=== PATIENT | male | born 1965 | race Caucasian/White ===

== ENCOUNTER → 2016-10-21 | Outpatient (CLI) | payer MEDICARE, MEDICAID | LOC: RAD 09:44 | PROVIDERS: ATTEND Specialist | DX: K21.9 Gastro-esophageal reflux disease without esophagitis (principal); K44.9 Diaphragmatic hernia without obstruction or gangrene | CPT/HCPCS: 74220 ==

== ENCOUNTER 2016-11-21 09:08 | Outpatient (CLI) | payer MEDICARE, MEDICAID ==
[~2016-11-21 09:08] MED LIST: FERRIC CARBOXYMALTOSE 750 MG in NORMAL SALINE 250 ML IV PRN; NORMAL SALINE 250 ML IV PRN
[2016-11-21 09:29] VITALS: BP 103/64
== END 2016-11-21 09:55 | disposition home or self-care (01) ==
LOC: II 09:08 → 5TH 09:09 → II 09:55
PROVIDERS: ATTEND Specialist
PROC: 3E033GC Introduction of Other Therapeutic Substance into Peripheral Vein, Percutaneous Approach (ICD-10-PCS; principal; 2016-11-21)
DX: D64.9 Anemia, unspecified (principal); K90.9 Intestinal malabsorption, unspecified
CPT/HCPCS: 96365; J7050; J1439

== ENCOUNTER 2016-11-28 09:05 | Outpatient (CLI) | payer MEDICAID, MEDICARE ==
[2016-11-28 09:24] VITALS: BP 104/69
== END 2016-11-28 09:54 | disposition home or self-care (01) ==
LOC: II 09:05 → 5TH 09:09 → II 09:54
PROVIDERS: ATTEND Specialist
PROC: 3E033GC Introduction of Other Therapeutic Substance into Peripheral Vein, Percutaneous Approach (ICD-10-PCS; principal; 2016-11-28)
DX: D64.9 Anemia, unspecified (principal); K90.9 Intestinal malabsorption, unspecified
CPT/HCPCS: 96365; J7050; J1439

== ENCOUNTER 2017-02-04 09:56 | Outpatient (CLI) | payer MEDICAID, MEDICARE ==
[2017-02-04 10:46] VITALS: BP 90/50
== END 2017-02-04 10:59 | disposition home or self-care (01) ==
LOC: II 09:56 → 5TH 09:57 → II 10:59
PROVIDERS: ATTEND Specialist
PROC: 3E033GC Introduction of Other Therapeutic Substance into Peripheral Vein, Percutaneous Approach (ICD-10-PCS; principal; 2017-02-04)
DX: D64.9 Anemia, unspecified (principal); K90.9 Intestinal malabsorption, unspecified
CPT/HCPCS: 96367; J7050; J1439; 96365

== ENCOUNTER 2017-02-11 10:34 | Outpatient (CLI) | payer MEDICARE ==
[2017-02-11 10:56] VITALS: BP 106/50
== END 2017-02-11 11:38 | disposition home or self-care (01) ==
LOC: 5TH 10:34 → II 10:34
PROVIDERS: ATTEND Specialist
PROC: 3E033GC Introduction of Other Therapeutic Substance into Peripheral Vein, Percutaneous Approach (ICD-10-PCS; principal; 2017-02-11)
DX: D64.9 Anemia, unspecified (principal); K90.9 Intestinal malabsorption, unspecified
CPT/HCPCS: 96365; J7050; J1439

== ENCOUNTER 2017-04-03 01:23 | Inpatient (IN) | payer MEDICARE ==
[2017-04-03] MEDS ORDERED: METHYLPREDNISOLONE INJ 125 MG/2 ML SDV IV ONE (01:32)
[2017-04-03] MEDS ORDERED: IPRATROPIUM/ALBUTEROL 0.5-2.5 MG/3 ML AMPUL NEB ONE ×2 (01:32→01:44)
[2017-04-03] MEDS ORDERED: NORMAL SALINE 1000 ML 1,000 ML IV ONE (01:44)
[2017-04-03] MEDS: ALBUTEROL SULFATE 0.083% NEB 2.5 MG/3 ML AMPUL NEB SCH ×2 (02:16→02:55)
[2017-04-03 02:18] LABS: ABSOLUTE BASOPHILS # (AUTO) 0.1 10^3/uL (0.0-0.2); ABSOLUTE EOSINOPHILS # (AUTO) 0.2 10^3/uL (0.0-0.6); ABSOLUTE LYMPHOCYTES (AUTO) 0.9 10^3/uL (0.5-4.7); ABSOLUTE MONOCYTES (AUTO) 0.8 10^3/uL (0.1-1.4); ABSOLUTE NEUT (AUTO) 15.2 10^3/uL (1.7-8.2); BASOPHILS % (AUTO) 0.4 % (0-2); EOSINOPHILS % (AUTO) 1.4 % (0-6); HEMATOCRIT 28.4 % (37.9-51.0); HGB HCT DIFFERENCE -1.4; LYMPHOCYTES % (AUTO) 5.3 % (13-45); MEAN CORPUSCULAR HEMOGLOBIN 27.9 pg (27.0-33.4); MEAN CORPUSCULAR HGB CONC 31.8 g/dL (32.0-36.0); MEAN CORPUSCULAR VOLUME 88 fl (80-97); MONOCYTES % (AUTO) 4.6 % (3-13); RED BLOOD COUNT 3.23 10^6/uL (4.35-5.55); RED CELL DISTRIBUTION WIDTH 16.4 % (11.5-14.0); SEGMENTED NEUTROPHILS % (AUTO) 88.3 % (42-78); WHITE BLOOD COUNT 17.2 10^3/uL (4.0-10.5)
[2017-04-03 02:19] LABS: VENOUS BLOOD BASE EXCESS 3.3 mmol/L; VENOUS BLOOD HCO3 30.2 mmol/L (20-32); VENOUS BLOOD PCO2 55.3 mmHg (35-63); VENOUS BLOOD PH 7.36 (7.30-7.42)
--- NOTE | 2017-04-03 02:22 | ER Document Report ---
ED General - General Chief Complaint: breating diffiiculty Stated Complaint: SHORT OF BREATH Time Seen by Provider: 04/03/17 01:43 Notes: Patient is a 51-year-old male who presents with complaint of feeling short of breath. He was discharged from [facility] 1 week ago due to pneumonia. His daughter says that he was there for just over a week. He was not discharged home on antibiotics he received a week of antibiotics while in the hospital. He does have a history of chronic anemia and is followed by hematology for this. He was given blood transfusions while [facility]. He had been doing well until last day and a half and he had gradually worsening difficulty breathing which became more severe tonight. He wears 3 L of oxygen at home when at rest. He wears 4 L when he is ambulating. No fevers at home. No vomiting. No chest pain. No abdominal pain. No other complaints at this time. TRAVEL OUTSIDE OF THE [place] IN LAST 30 DAYS: No - Related Data Allergies/Adverse Reactions: No Known Allergies Allergy (Verified 10/23/16 10:10) Past Medical History - Social History Smoking Status: Former Smoker Frequency of alcohol use: None Drug Abuse: None Family History: Reviewed & Not Pertinent Patient has suicidal ideation: No Patient has homicidal ideation: No Pulmonary Medical History: Reports: Hx COPD Neurological Medical History: Denies: Hx Seizures Renal/ Medical History: Denies: Hx Peritoneal Dialysis GI Medical History: Reports: Hx Gastroesophageal Reflux Disease, Hx Endoscopy Past Surgical History: Reports: Hx Orthopedic Surgery - back - Immunizations Hx Diphtheria, Pertussis, Tetanus Vaccination: Yes Hx Pneumococcal Vaccination: 09/14/14 Review of Systems - Review of Systems Notes: My Normal Review Basic REVIEW OF SYSTEMS: CONSTITUTIONAL : Denies fever, chills, or sweats. Denies recent illness. EENT: Denies eye, ear, throat, or mouth pain or symptoms. Denies nasal or sinus congestion. CARDIOVASCULAR: Denies chest pain. RESPIRATORY: Difficulty breathing. GASTROINTESTINAL: Denies abdominal pain. Denies nausea, vomiting, or diarrhea. Denies constipation. Last BM: MUSCULOSKELETAL: Denies neck or back pain or joint pain or swelling. SKIN: Denies rash or skin lesions. HEMATOLOGIC : Denies easy bruising or bleeding. LYMPHATIC: Denies swollen, enlarged glands. NEUROLOGICAL: Denies altered mental status or loss of consciousness. Denies headache. Denies weakness or paralysis or loss of use of either side. Denies problems with gait or speech. Denies sensory or motor loss. ALL OTHER SYSTEMS REVIEWED AND NEGATIVE. Physical Exam - Vital signs Vitals: Temp Pulse Resp BP Pulse Ox 97.5 F 121 H 26 H 87/57 L 87 L 04/03/17 01:30 04/03/17 01:30 04/03/17 01:30 04/03/17 01:30 04/03/17 01:30 - Notes Notes: General Appearance: Well nourished, alert, cooperative, moderate acute distress , no obvious discomfort. Vitals: reviewed, See vital signs table. Head: no swelling or tenderness to the head Eyes: PERRL, EOMI, Conjuctiva clear Mouth: No decreasd moisture Neck: Supple, no neck tenderness, No thyromegaly Lungs: Diffuse wheezing, No rales, No rhonci, No accessory muscle use, poor air exchange bilaterally. Heart: Normal rate, Regular rythm, No murmur, no rub Abdomen: Normal BS, soft, No rigidity, No abdominal tenderness, No guarding, no rebound, no abdominal masses, no organomegaly Extremities: strength 5/5 in all extremities, good pulses in all extremities, no swelling or tenderness in the extremities, no edema. Skin: warm, dry, appropriate color, no rash Neuro: speech clear, oriented x 3, normal affect, responds appropriately to questions. Course - Re-evaluation Re-evalutation: 04/03/17 02:33 Patient's blood pressure systolically is in the 80s. He is receiving IV fluid bolus. His oxygen saturation is around 90% on 40% of FiO2 on the BiPAP. I have increased his FiO2 to 50%. If patient continues to be hypotensive after fluid boluses he may require central line and pressor therapy. 04/03/17 04:51 Patient's lung moore have cleared up very well. Is good air exchange now. His x-ray does show a hilar mass in the left side. The daughter does have some discharge paperwork from [facility] which shows that he did receive a CT scan of his chest wall there but does not tell what the report was for CT scan. I have requested old records from [facility] and hopefully this will have the CT scan result which will show us what the potential masses. Patient does have a leukocytosis. When he was discharged [facility] his white blood cell count was 5. He is now 17,000. Being that he was just treated for pneumonia and a hospital setting I will cover him for hospital-acquired pneumonia has had this possibility with his leukocytosis and difficulty breathing. He has been borderline hypotensive since he arrived. Systolic blood pressure was in the 80s however his mean arterial pressure was always well above 65. His systolic pressure is now in the 90s after fluid bolus. His daughter also mentions that he was hypotensive the entire time he was at [facility] as well. At this time I feel the patient needs to be admitted for further workup and treatment of his COPD exacerbation and possible pneumonia and lung mass. I have spoken with Dr. Jaeger, hospitalist, who agrees to accept the patient. Dictation of this chart was performed using voice recognition software; therefore, there may be some unintended grammatical errors. - Vital Signs Vital signs: Temp Pulse Resp BP Pulse Ox 97.5 F 121 H 11 L 81/68 L 95 04/03/17 01:30 04/03/17 01:30 04/03/17 02:08 04/03/17 02:08 04/03/17 02:08 - Laboratory Result Diagrams: 04/03/17 02:00 04/03/17 02:00 Laboratory results interpreted by me: 04/03/17 04/03/17 04/03/17 02:00 02:00 02:00 WBC 17.2 H RBC 3.23 L Hgb 9.0 L Hct 28.4 L MCHC 31.8 L RDW 16.4 H Seg Neutrophils % 88.3 H Lymphocytes % 5.3 L Absolute Neutrophils 15.2 H Sodium 136.1 L Potassium 3.4 L Chloride 96 L Glucose 147 H AST 13 L Creatine Kinase < 20 L Albumin 2.5 L - EKG Interpretation by Me Additional EKG results interpreted by me: 04/03/17 02:21 EKG is reviewed and interpreted by me. EKG shows sinus tachycardia with a rate of [address] segment elevation or depression. No ischemic T-wave inversions. NV interval, QRS duration, QTc intervals are within normal range. Old EKG for comparison is from April 21, 2016. Critical Care Note - Critical Care Note Total time excluding time spent on procedures (mins): 50 Comments: Critical care time for this patient not including time spent on procedures approximately 50 minutes due to frequent re-evaluations for his respiratory distress, management of his blood pressure, and management of his BiPAP. Dictation of this chart was performed using voice recognition software; therefore, there may be some unintended grammatical errors. Discharge - Discharge Clinical Impression: Lung mass Dyspnea Qualifiers: Dyspnea type: unspecified Qualified Code(s): R06.00 - Dyspnea, unspecified Leukocytosis Qualifiers: Leukocytosis type: unspecified Qualified Code(s): D72.829 - Elevated white blood cell count, unspecified Condition: Stable Disposition: ADMITTED INPATIENT Admitting Provider: Hospitalist Unit Admitted: [facility]
--- NOTE | 2017-04-03 02:30 | RADIOLOGY REPORT (SQ) ---
EXAM DESCRIPTION: CHEST SINGLE VIEW COMPLETED DATE/TIME: 04/03/2017 2:18 am REASON FOR STUDY: sob COMPARISON: 04/23/2016. EXAM PARAMETERS: NUMBER OF VIEWS: One view. TECHNIQUE: Single frontal radiographic view of the chest acquired. RADIATION DOSE: NA LIMITATIONS: None. FINDINGS: LUNGS AND PLEURA: Bullous emphysema. Chronic scarring. Large bulla in the left upper lob e. Ill-defined density in the right perihilar region. MEDIASTINUM AND HILAR STRUCTURES: No masses. Contour normal. HEART AND VASCULAR STRUCTURES: Heart normal in size. Normal vasculature. BONES: No acute findings. HARDWARE: None in the chest. OTHER: No other significant finding. IMPRESSION: COPD WITH BULLOUS EMPHYSEMA AND CHRONIC SCARRING. POSSIBLE RIGHT PERIHILAR MASS. TECHNICAL DOCUMENTATION: JOB ID: [id number]
[2017-04-03 02:31] LABS: ALANINE AMINOTRANSFERASE 24 U/L (21-72); ALBUMIN 2.5 g/dL (3.5-5.0); ALKALINE PHOSPHATASE 119 U/L (38-126); ANION GAP 11 (5-19); ASPARTATE AMINO TRANSFERASE 13 U/L (17-59); BILIRUBIN,DIRECT 0.4 mg/dL (0.0-0.4); BILIRUBIN,TOTAL 0.5 mg/dL (0.2-1.3); BLOOD UREA NITROGEN 19 mg/dL (7-20); CALCIUM 8.7 mg/dL (8.4-10.2); CARBON DIOXIDE 29 mmol/L (22-30); CHLORIDE 96 mmol/L (98-107); CREATININE RESULT 0.95 mg/dL (0.52-1.25); GLUCOSE 147 mg/dL (75-110); POTASSIUM 3.4 mmol/L (3.6-5.0); SODIUM 136.1 mmol/L (137-145); TOTAL PROTEIN 6.4 g/dL (6.3-8.2)
[2017-04-03] MEDS ORDERED: VANCOMYCIN HCL INJ 1000 MG VIAL IV ONE (02:38)
[2017-04-03 03:04] LABS: CREATINE KINASE MB 1.09 ng/mL (<4.55)
[2017-04-03 03:08] LABS: TROPONIN I 0.095 ng/mL
[2017-04-03] MEDS ORDERED: ENOXAPARIN SODIUM INJ 60 MG/0.6 ML DISP.SYRIN SUBCUT SCH ×2 (03:15)
[2017-04-03] MEDS ORDERED: NORMAL SALINE 1000 ML 1,000 ML IV PRN (03:40)
[2017-04-03] MEDS ORDERED: ACETAMINOPHEN 325 MG TABLET PO PRN (04:43)
[2017-04-03] MEDS ORDERED: IRON POLYSACCHARIDES COMPLEX 150 MG CAPSULE PO ONE (05:15)
[2017-04-03] MEDS ORDERED: FLUTICASONE NASAL SPRAY 50 MCG/SPRY 120 SPRAY/16 GM NASL ONE (05:15)
[2017-04-03 05:30] LABS: MAGNESIUM 1.9 mg/dL (1.6-2.3)
[2017-04-03] MEDS ORDERED: MAGNESIUM SULFATE/D5W 100 ML IV ONE (05:34)
[2017-04-03] MEDS ORDERED: VORICONAZOLE IV SCH (05:45)
[2017-04-03] MEDS ORDERED: NORMAL SALINE IV SCH (05:45)
[2017-04-03] MEDS ORDERED: FLUTICASONE NASAL SPRAY 50 MCG/SPRY 120 SPRAY/16 GM ONE (05:45)
--- NOTE | 2017-04-03 05:57 | EKG REPORT ---
SEVERITY:- OTHERWISE NORMAL ECG - SINUS TACHYCARDIA : Confirmed by: Clarice Ahn MD 03-Apr-2017 05:56:51
[2017-04-03] MEDS ORDERED: PIPERACILLIN/TAZOBACTAM 4.5 GM VIAL IV PRN (06:00)
[2017-04-03] MEDS ORDERED: PIPERACILLIN SODIUM/TAZOBACTAM 4.5 GM in NORMAL SALINE 100 ML IV SCH (06:00)
[2017-04-03 06:15] LABS: ARTERIAL BLOOD BASE EXCESS 2.8 mmol/L; ARTERIAL BLOOD O2 SATURATION 97.2 % (94-98)
[2017-04-03] MEDS: LANSOPRAZOLE 30 MG TAB.RAP.DR PO SCH ×2 (06:32→16:19)
[2017-04-03] MEDS: HEPARIN SOD (PORCINE) 5,000 UNIT/ML 1 ML SYRINGE SUBCUT SCH ×3 (06:33→21:33)
[2017-04-03] MEDS: NORMAL SALINE 1000 ML 1,000 ML IV SCH ×2 (06:35→11:35)
[2017-04-03] MEDS: POTASSI CL 20 MEQ/50 ML RIDER 50 ML IV SCH ×5 (06:36→23:36)
[2017-04-03] MEDS ORDERED: VANCOMYCIN HCL 0 MG in DEXTROSE 5%-WATER 250 ML IV NR (06:45)
[2017-04-03] MEDS ORDERED: CEFEPIME 1 GM/D5W RTU 50 ML IV SCH (06:45)
--- NOTE | 2017-04-03 06:51 | PDOC H&P ---
History of Present Illness Admission Date/PCP: 04/03/17 04:43 LAKSHMI GARCIA MD Patient complains of: Shortness of breath nonproductive cough History of Present Illness: HCERIE SIDDIQUI is a 51 year old male with a past medical history of oxygen dependent COPD, severe emphysema with scarring, recurrent pneumonia, severe iron deficiency anemia and Hillar adenopathy. Patient was released 7 days ago from [facility] following a 14 day hospitalization for respiratory failure and pneumonia. He was not discharged with antibiotics or steroids and developed worsening shortness of breath subjective fever of the last 48 hours prompting her to seek evaluation emergency room. Where he is found to have severe sepsis with hypotension, tachycardia, hypoxia, pneumonia and leukocytosis. He started on BiPAP, Zosyn and vancomycin and referred to the hospitalist for admission. Patient is toxic and severely ill unable to cooperate in History. Records from [facility] are requested and pending. Past Medical History Pulmonary Medical History: Reports: Chronic Obstructive Pulmonary Disease (COPD) , Pneumonia, Respiratory Failure Neurological Medical History: Denies: Seizures GI Medical History: Reports: Gastroesophageal Reflux Disease Hematology: Reports: Anemia Past Surgical History Past Surgical History: Reports: Orthopedic Surgery - back Social History Information Source: [facility] Records Lives with: Spouse/Significant other Smoking Status: Former Smoker Hx Recreational Drug Use: No Drugs: None Hx Prescription Drug Abuse: No - Advance Directive Resuscitation Status: Full Code Family History Family History: COPD Parental Family History Reviewed: Yes Children Family History Reviewed: Yes Sibling(s) Family History Reviewed.: Yes Medication/Allergy Home Medications: Aspirin [Aspirin 81 mg Chewable Tablet] 81 mg PO DAILY 01/28/12 Cyclobenzaprine HCl [Flexeril 10 mg Tablet] 10 mg PO TID 01/28/12 Multivitamin [Multivitamins] 1 each PO DAILY 01/28/12 Tiotropium [place] [Spiriva Handihaler 18 mcg/dose (30 Dose)] 18 mcg IH BID 29/08 Montelukast Sodium [Singulair 10 mg Tablet] 10 mg PO QHS 04/01/14 Gabapentin 600 mg PO TID 10/12/15 Ibuprofen [Motrin 800 mg Tablet] 800 mg PO TID 10/12/15 Loratadine [Claritin] 10 mg PO DAILY 10/12/15 Docusate Sodium [Colace 100 mg Capsule] 100 mg PO BID #60 capsule 10/22/15 Fluticasone/Salmeterol [Advair 250-50 Diskus 14 Dose/Diskus] 1 inh IH Q12 #1 inhaler 10/22/15 Furosemide [Lasix 20 mg Tablet] 20 mg PO DAILY #30 tablet 10/22/15 Lorazepam 0.5 mg PO Q4HP PRN 04/22/16 Ipratropium/Albuterol Sulfate [Duoneb 3 ml Ampul] 3 ml NEB [id number] #30 vial.neb 04/30/16 Oxycodone HCl [Oxy-Ir 5 mg Tablet] 20 mg PO Q6 #30 tablet 04/30/16 Oxycodone HCl [Oxycontin Sr 40 mg Tablet] 40 mg PO Q12 #30 tab.sr.12h 04/30/16 Prednisone [Deltasone 20 mg Tablet] 40 mg PO DAILY #30 tablet 04/30/16 Cefpodoxime Proxetil [Vantin 200 mg Tablet] 1 tab PO Q12 #28 tab 05/01/16 Levofloxacin [Levaquin 750 mg Tablet] 750 mg PO DAILY #15 tab 05/01/16 Allergies/Adverse Reactions: No Known Allergies Allergy (Verified 10/23/16 10:10) Review of Systems ROS unobtainable: Due to mental status Physical Exam Vital Signs: Temp Pulse Resp BP Pulse Ox 97.5 F 121 H 11 L 91/65 L 99 04/03/17 01:30 04/03/17 01:30 04/03/17 06:09 04/03/17 05:30 04/03/17 06:09 General appearance: PRESENT: disheveled, severe distress, thin, other - Chronically ill appearing with cachexia and temporal wasting Head exam: PRESENT: atraumatic, normocephalic Eye exam: PRESENT: conjunctiva pink, EOMI, PERRLA. ABSENT: scleral icterus Ear exam: PRESENT: normal external ear exam Mouth exam: PRESENT: moist, tongue midline Neck exam: ABSENT: carotid bruit, JVD, lymphadenopathy, thyromegaly Respiratory exam: PRESENT: accessory muscle use, crackles, decreased breath sounds, prolonged expiratory phas, retraction, rhonchi, tachypnea. ABSENT: wheezes Cardiovascular exam: PRESENT: RRR. ABSENT: diastolic murmur, rubs, systolic murmur Pulses: PRESENT: normal dorsalis pedis pul Vascular exam: PRESENT: normal capillary refill GI/Abdominal exam: PRESENT: normal bowel sounds, soft. ABSENT: distended, guarding, mass, organolmegaly, rebound, tenderness Rectal exam: PRESENT: deferred Extremities exam: PRESENT: full ROM. ABSENT: calf tenderness, clubbing, pedal edema Neurological exam: PRESENT: alert, awake, oriented to person, oriented to place , oriented to time, oriented to situation, CN II-XII grossly intact. ABSENT: motor sensory deficit Psychiatric exam: PRESENT: appropriate affect, normal mood. ABSENT: homicidal ideation, suicidal ideation Skin exam: PRESENT: dry, intact, warm. ABSENT: cyanosis, rash Results Laboratory Results: 04/03/17 06:00 Carbonic Acid 1.62 H HCO3/H2CO3 Ratio 17:1 ABG pH 7.35 ABG pCO2 53.8 H ABG pO2 100.1 H ABG HCO3 29.0 H ABG O2 Saturation 97.2 ABG Base Excess 2.8 FiO2 45% Impressions: Chest X-Ray 04/03/17 01:32 IMPRESSION: COPD WITH BULLOUS EMPHYSEMA AND CHRONIC SCARRING. POSSIBLE RIGHT PERIHILAR MASS. Assessment & Plan - Diagnosis (1) Severe sepsis Is this a current diagnosis for this admission?: YesPlan: Likely secondary to pneumonia given his chronic illness I will obtain a random cortisol level and started on Solu-Cortef empirically, 4 L of crystalloid has not improved blood pressure and levofed is initiated (2) Acute renal failure Is this a current diagnosis for this admission?: YesPlan: Likely secondary to prolonged hypotension, will avoid nephrotoxic meds and doses IV fluid challenge, continue to correct underlying cause (3) Anemia Qualifiers: Anemia type: iron deficiency Is this a current diagnosis for this admission?: YesPlan: His hemoglobin is at baseline he is hypoxic requiring optimization of his iron deficient state with an iron level of only 17 he is ordered IV iron. Follow-up CBC and consideration of transfusion of packed red blood cells. Will require outpatient workup for causes of chronic blood loss (4) Acute on chronic respiratory failure with hypoxia and hypercapnia Is this a current diagnosis for this admission?: YesPlan: BiPAP supplemental oxygen, albuterol and Atrovent, pulmonology consult ordered (5) Pneumonia Qualifiers: Pneumonia type: due to unspecified organism Laterality: bilateral Lung location: unspecified part of lung Qualified Code(s): J18.9 - Pneumonia , unspecified organism Is this a current diagnosis for this admission?: YesPlan: Given recent hospitalization and unclear culture results he is started on vancomycin, cefepime and Zosyn given risk of Pseudomonas and Vfend given recent verbal history from his of fungal lung infection with adenopathy. Follow- up blood cultures and CBC consider bronchoscopy. Patient's drafter plumbing consulted - Time Time Spent: 50 to 70 Minutes - Inpatient Certification Medical Necessity: Need Close Monitoring Due to Risk of Patient Decompensation
[2017-04-03] MEDS ORDERED: DEXTROSE 5%-WATER 250 ML with NOREPINEPHRINE BITARTRATE 4 MG IV PRN ×2 (07:39)
[2017-04-03 07:48] LABS: URINE BARBITURATES SCREEN NEGATIVE; URINE METHADONE SCREEN NEGATIVE; URINE OPIATES LOW UNCONFIRMED POSITIVE; URINE PHENCYCLIDINE SCREEN NEGATIVE
[2017-04-03] MEDS ORDERED: IPRATROPIUM/ALBUTEROL 0.5-2.5 MG/3 ML AMPUL NEB SCH (08:00)
[2017-04-03] MEDS ORDERED: IRON SUCROSE COMPLEX INJ/PF 100 MG/5 ML SDV IV ONE (09:00)
[2017-04-03] MEDS ORDERED: LEVALBUTEROL HCL NEB 1.25 MG/3 ML AMPUL NEB PRN (09:00)
[2017-04-03] MEDS ORDERED: CEFEPIME HCL 1 GM in DEXTROSE 5%-WATER 50 ML IV SCH (09:00)
[2017-04-03] MEDS ORDERED: BISACODYL 5 MG TABEC PO ONE (09:01)
[2017-04-03] MEDS ORDERED: HYDROCORTISONE SOD SUCCINATE INJ/PF 100 MG/2 ML SDV IV SCH ×2 (10:00)
[2017-04-03 10:44] LABS: ANION GAP 10 (5-19); BLOOD UREA NITROGEN 16 mg/dL (7-20); CALCIUM 7.7 mg/dL (8.4-10.2); CARBON DIOXIDE 25 mmol/L (22-30); CHLORIDE 102 mmol/L (98-107); GLUCOSE 113 mg/dL (75-110); POTASSIUM 3.1 mmol/L (3.6-5.0); SODIUM 137.4 mmol/L (137-145)
[2017-04-03] MEDS ORDERED: NORMAL SALINE IV ONE (11:00)
[2017-04-03] MEDS ORDERED: CASPOFUNGIN ACETATE IV ONE (11:00)
[2017-04-03] MEDS: FAMOTIDINE INJ/PF 20 MG/2 ML SDV IV SCH ×2 (11:31→21:26)
[2017-04-03] MEDS: METHYLPREDNISOLONE INJ 125 MG/2 ML SDV IV SCH ×3 (11:31→21:26)
[2017-04-03] MEDS: ROFLUMILAST 500 MCG TABLET PO SCH (11:32)
[2017-04-03] MEDS: LINEZOLID 300 ML IV SCH ×2 (11:32→21:32)
[2017-04-03] MEDS: GUAIFENESIN 600 MG TABLET.SA PO SCH ×2 (11:34→21:22)
[2017-04-03] MEDS: ASPIRIN 81 MG TABLET, CHEWABLE PO SCH (11:35)
[2017-04-03] MEDS: GABAPENTIN 300 MG CAPSULE PO SCH ×3 (11:35→21:22)
[2017-04-03] MEDS: DOCUSATE SODIUM 100 MG CAPSULE PO SCH ×2 (11:35→17:48)
[2017-04-03] MEDS: LORATADINE 10 MG TABLET PO SCH (11:35)
[2017-04-03] MEDS: IPRATROPIUM/ALBUTEROL 0.5-2.5 MG/3 ML AMPUL NEB SCH ×4 (12:13→23:52)
[2017-04-03] MEDS ORDERED: NOREPINEPHRINE BITARTRATE INJ/PF 4 MG/4 ML SDV IV ONE (13:54)
[2017-04-03] MEDS: IMIPENEM/CILASTATIN SODIUM 1,000 MG in NORMAL SALINE 250 ML IV SCH ×3 (14:03→23:33)
[2017-04-03 16:22] LABS: ARTERIAL BLOOD BASE EXCESS 1.8 mmol/L; ARTERIAL BLOOD O2 SATURATION 97.5 % (94-98)
--- NOTE | 2017-04-03 16:30 | PDOC PROGRESS REPORT ---
Subjective Progress Note for:: 04/03/17 Subjective:: Patient is on BiPap making ROS difficult. Patient reports he has been short of breath for 48 hours. Patient is less than one week out from [place] from [facility] for sepsis and pneumonia. reports [facility] unwilling to do bronchoscopy when "he looked the best he had in a long time." Physical Exam Vital Signs: Temp Pulse Resp BP Pulse Ox 97.5 F 94 16 100/66 100 04/03/17 01:30 04/03/17 07:51 04/03/17 07:51 04/03/17 07:31 04/03/17 07:51 Exam: General: lethargic, severe respiratory distress, toxic appearing and pale HEENT: AT/NC, PERRL, EOMI, oropharynx is dry, pink, no scleral icterus, no conjunctival injection Neck: No JVD, trachea midline Chest: Diffuse crackles, rhonchi, retractions, accessory muscle usage CV: Regular rate and rhythm, normal S1 and S2, no rub or gallop; Abdomen: Soft, nontender to palpation, nondistended, active bowel sounds; no rebound, rigidity, or guarding Extremities: No cyanosis; + clubbing, trace edema Neuro: lethargic Results Laboratory Results: 04/03/17 06:00 Carbonic Acid 1.62 H HCO3/H2CO3 Ratio 17:1 ABG pH 7.35 ABG pCO2 53.8 H ABG pO2 100.1 H ABG HCO3 29.0 H ABG O2 Saturation 97.2 ABG Base Excess 2.8 FiO2 45% Impressions: Chest X-Ray 04/03/17 01:32 IMPRESSION: COPD WITH BULLOUS EMPHYSEMA AND CHRONIC SCARRING. POSSIBLE RIGHT PERIHILAR MASS. Assessment & Plan - Diagnosis (1) Acute on chronic respiratory failure with hypoxia and hypercapnia Is this a current diagnosis for this admission?: YesPlan: Patient on Bipap Have consulted Dr. Shin of pulmonary medicine per request (2) Severe sepsis Is this a current diagnosis for this admission?: YesPlan: Upon review of patient record from [facility], patient grew Yolanda Tropicalis and had a fever on Fluconazole. Patient also had 3 negative AFB. Cavitary pulmonary lesion. Patient completed one week of Linezolid and Meropenem. I did review his discharge summary from this admission. (3) Acute renal failure Qualifiers: Acute renal failure type: with acute tubular necrosis Qualified Code (s): N17.0 - Acute kidney failure with tubular necrosis Is this a current diagnosis for this admission?: YesPlan: Continue gentle hydration (4) Anemia Qualifiers: Anemia type: iron deficiency Is this a current diagnosis for this admission?: YesPlan: Type and screen (5) Pneumonia Qualifiers: Pneumonia type: due to unspecified organism Laterality: bilateral Lung location: unspecified part of lung Qualified Code(s): J18.9 - Pneumonia, unspecified organism Is this a current diagnosis for this admission?: YesPlan: Patient had recent diagnosis of cavitary pneumonia which was found to be polymicrobial with Yolanda including Yolanda tropicalis, aspergillus, and normal henrietta. Place patient on linezolid, imipenem, and caspofungin. Many strains of Yolanda tropicalis have inherent resistance to azoles. (6) Chronic pain Qualifiers: Chronic pain type: other chronic pain Qualified Code(s): G89.29 - Other chronic pain Is this a current diagnosis for this admission?: YesPlan: Hold narcotics due to hypotension (7) Chronically on opiate therapy Is this a current diagnosis for this admission?: Yes (8) dvt ppx Is this a current diagnosis for this admission?: YesPlan: heparin and scd (9) gi ppx Is this a current diagnosis for this admission?: YesPlan: prevacid - Time Critical Time spent with patient: 35 or more minutes Medications reviewed and adjusted accordingly: Yes - Plan Summary Plan Summary: Although attempting aggressive measures for this patient, I am less than optimistic he will survive this hospitalization. I have discussed this with his in plain terms and answer questions to the best my ability. At this time, she has decided for DNR. Total time spent with patient including patient education, physical examination, discussion with consultants, and formulation of plan was 65 minutes critical care.
[2017-04-03] MEDS ORDERED: OXYCODONE HCL IR 5 MG TABLET PO PRN (18:46)
[2017-04-03] MEDS: IPRATROPIUM/ALBUTEROL 0.5-2.5 MG/3 ML AMPUL NEB PRN (20:33)
[2017-04-03] MEDS: OXYCODONE HCL IR 5 MG TABLET PO PRN (21:21)
[2017-04-03] MEDS: MONTELUKAST SODIUM 10 MG TABLET PO SCH (21:23)
[2017-04-03] MEDS: FLUTICASONE/SALMETEROL DISKUS 500-50 MCG/DOSE IH SCH (21:26)
[2017-04-03] MEDS: FLUTICASONE NASAL SPRAY 50 MCG/SPRY 120 SPRAY/16 GM NASL SCH (21:34)
[2017-04-04] MEDS: POTASSI CL 20 MEQ/50 ML RIDER 50 ML IV SCH (01:40)
[2017-04-04] MEDS: METHYLPREDNISOLONE INJ 125 MG/2 ML SDV IV SCH ×4 (02:24→21:05)
[2017-04-04 04:02] LABS: ABSOLUTE LYMPHOCYTES (AUTO) 0.5 10^3/uL (0.5-4.7); ABSOLUTE MONOCYTES (AUTO) 0.2 10^3/uL (0.1-1.4); ABSOLUTE NEUT (AUTO) 6.8 10^3/uL (1.7-8.2); BASOPHILS % (AUTO) 0.2 % (0-2); EOSINOPHILS % (AUTO) 0.1 % (0-6); HEMATOCRIT 23.6 % (37.9-51.0); HGB HCT DIFFERENCE -0.5; LYMPHOCYTES % (AUTO) 7.2 % (13-45); MEAN CORPUSCULAR HEMOGLOBIN 29.2 pg (27.0-33.4); MEAN CORPUSCULAR HGB CONC 32.5 g/dL (32.0-36.0); MEAN CORPUSCULAR VOLUME 90 fl (80-97); MONOCYTES % (AUTO) 2.5 % (3-13); RED BLOOD COUNT 2.62 10^6/uL (4.35-5.55); RED CELL DISTRIBUTION WIDTH 16.3 % (11.5-14.0); WHITE BLOOD COUNT 7.6 10^3/uL (4.0-10.5)
[2017-04-04] MEDS: IPRATROPIUM/ALBUTEROL 0.5-2.5 MG/3 ML AMPUL NEB SCH ×5 (04:04→20:00)
[2017-04-04 04:10] LABS: HEMOGLOBIN 7.7 g/dL (13.5-17.0)
[2017-04-04 04:21] LABS: ANION GAP 6 (5-19); BLOOD UREA NITROGEN 14 mg/dL (7-20); CALCIUM 7.6 mg/dL (8.4-10.2); CARBON DIOXIDE 24 mmol/L (22-30); CHLORIDE 107 mmol/L (98-107); CREATININE RESULT 0.64 mg/dL (0.52-1.25); GLUCOSE 150 mg/dL (75-110); PHOSPHORUS 3.5 mg/dL (2.5-4.5); POTASSIUM 3.6 mmol/L (3.6-5.0); SODIUM 137.4 mmol/L (137-145)
[2017-04-04] MEDS: GABAPENTIN 300 MG CAPSULE PO SCH ×3 (05:33→21:06)
[2017-04-04] MEDS: LANSOPRAZOLE 30 MG TAB.RAP.DR PO SCH ×2 (05:33→17:44)
[2017-04-04] MEDS: IMIPENEM/CILASTATIN SODIUM 1,000 MG in NORMAL SALINE 250 ML IV SCH ×3 (05:34→17:44)
[2017-04-04] MEDS: HEPARIN SOD (PORCINE) 5,000 UNIT/ML 1 ML SYRINGE SUBCUT SCH ×3 (06:02→21:08)
[2017-04-04] MEDS: OXYCODONE HCL IR 5 MG TABLET PO PRN (06:05)
--- NOTE | 2017-04-04 07:02 | RADIOLOGY REPORT (SQ) ---
EXAM DESCRIPTION: CHEST SINGLE VIEW COMPLETED DATE/TIME: 04/04/2017 6:47 am REASON FOR STUDY: ACUTE/CHRONIC RESP FAILURE COMPARISON: 04/03/2017 NUMBER OF VIEWS: One view. TECHNIQUE: Single frontal radiographic view of the chest acquired. LIMITATIONS: None. FINDINGS: LUNGS AND PLEURA: No opacities, masses or pneumothorax. No pleural effusion. Attenuated bl ood vessels and flattened marialuisa-diaphragms. Numerous bullous emphysematous changes noted throughout t he lungs. Chronic scarring noted in throughout common not significant change from prior study. The ill-defined density in the right parahilar region has decreased in size comparison the prior study. MEDIASTINUM AND HILAR STRUCTURES: No masses. Contour normal. HEART AND VASCULAR STRUCTURES: Cardiac size is stable. No pulmonary vascular distention. BONES: No acute findings. HARDWARE: None in the chest. OTHER: No other significant finding. IMPRESSION: 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 The prev iously noted right perihilar mass/ infiltrate has decreased in size comparison the prior study. TECHNICAL DOCUMENTATION: JOB ID: [id number] All Rights Reserved
[2017-04-04] MEDS ORDERED: OXYCODONE HCL 60 MG PO SCH (08:15)
[2017-04-04] MEDS ORDERED: OXYCODONE HCL SR 10 MG TABLET PO ONE (09:00)
[2017-04-04] MEDS ORDERED: OXYCODONE HCL SR 40 MG TABLET PO ONE (09:00)
[2017-04-04] MEDS: LACTOBACILLUS ACIDOPHILUS 250 MG TAB PO SCH (09:07)
[2017-04-04] MEDS: ROFLUMILAST 500 MCG TABLET PO SCH (09:07)
[2017-04-04] MEDS: GUAIFENESIN 600 MG TABLET.SA PO SCH ×2 (09:08→21:06)
[2017-04-04] MEDS: DOCUSATE SODIUM 100 MG CAPSULE PO SCH ×2 (09:09→17:44)
[2017-04-04] MEDS: IRON POLYSACCHARIDES COMPLEX 150 MG CAPSULE PO SCH (09:10)
[2017-04-04] MEDS: LINEZOLID 300 ML IV SCH ×2 (09:10→22:43)
[2017-04-04] MEDS: FLUTICASONE/SALMETEROL DISKUS 500-50 MCG/DOSE IH SCH ×2 (09:12→21:05)
[2017-04-04] MEDS: FAMOTIDINE INJ/PF 20 MG/2 ML SDV IV SCH ×2 (09:12→21:05)
[2017-04-04] MEDS: LIDOCAINE 5% (700 MG) TRANSDERMAL ADH..PATCH TP SCH (09:13)
[2017-04-04] MEDS: LORATADINE 10 MG TABLET PO SCH (09:14)
[2017-04-04] MEDS: ASPIRIN 81 MG TABLET, CHEWABLE PO SCH (09:14)
[2017-04-04] MEDS ORDERED: (PENDING PHARMACY ID) (Lactobacillus Acidophilus [Acidophilus] 1 TAB) PO SCH (10:00)
[2017-04-04] MEDS ORDERED: CASPOFUNGIN ACETATE IV SCH (11:00)
[2017-04-04] MEDS ORDERED: NORMAL SALINE IV SCH (11:00)
[2017-04-04] MEDS: FLUTICASONE NASAL SPRAY 50 MCG/SPRY 120 SPRAY/16 GM NASL SCH ×2 (11:36→21:09)
[2017-04-04] MEDS ORDERED: FUROSEMIDE INJ/PF 20 MG/2 ML SDV ONE (11:39)
[2017-04-04] MEDS ORDERED: FUROSEMIDE INJ/PF 20 MG/2 ML SDV IV ONE (12:10)
[2017-04-04] MEDS: OXYCODONE HCL SR 40 MG TABLET PO SCH ×2 (13:20→21:07)
[2017-04-04] MEDS: OXYCODONE HCL SR 10 MG TABLET PO SCH ×2 (13:20→21:07)
[2017-04-04 14:36] LABS: ARTERIAL BLOOD BASE EXCESS 1.7 mmol/L; ARTERIAL BLOOD O2 SATURATION 87.5 % (94-98)
--- NOTE | 2017-04-04 16:07 | PDOC PROGRESS REPORT ---
Subjective Progress Note for:: 04/04/17 Subjective:: Patient seen with daughter and brother at bedside. He reports he is feeling much better than yesterday. Patient denies chest pain, abdominal pain, nausea, vomiting, fevers, chills, diarrhea, constipation, headache, new onset weakness. Patient does complain of his chronic back pain. Physical Exam Vital Signs: Temp Pulse Resp BP Pulse Ox 97.4 F 92 23 H 104/74 98 04/04/17 07:41 04/04/17 07:41 04/04/17 07:41 04/04/17 07:41 04/04/17 07:41 Intake & Output 04/03/17 04/04/17 04/05/17 06:59 06:59 06:59 Intake Total 4698 Output Total 200 1705 Balance -200 2993 Weight 57.9 kg Exam: General: A+Ox3, mild respiratory distress, older than stated age appearing, chronically ill appearing HEENT: AT/NC, PERRL, EOMI, oropharynx is moist, pink, no scleral icterus, no conjunctival injection Neck: No JVD, trachea midline Chest: Mild tachypnea, rhonchi RLL, prolonged expiratory phase CV: Regular rate and rhythm, normal S1 and S2, no rub or gallop; Abdomen: Soft, nontender to palpation, nondistended, active bowel sounds; no rebound, rigidity, or guarding Extremities: No cyanosis; + clubbing, trace edema Neuro: Cranial nerves II through XII grossly intact without focal deficit, A+Ox3 Psych: Normal mood and affect Results Laboratory Results: 04/04/17 03:50 04/04/17 03:50 04/03/17 04/03/17 04/04/17 09:59 16:10 03:50 WBC 7.6 RBC 2.62 L Hgb 7.7 L Hct 23.6 L MCV 90 MCH 29.2 MCHC 32.5 RDW 16.3 H Plt Count 269 Seg Neutrophils % 90.0 H Lymphocytes % 7.2 L Monocytes % 2.5 L Eosinophils % 0.1 Basophils % 0.2 Absolute Neutrophils 6.8 Absolute Lymphocytes 0.5 Absolute Monocytes 0.2 Absolute Eosinophils 0.0 Absolute Basophils 0.0 Carbonic Acid 1.54 H HCO3/H2CO3 Ratio 18:1 ABG pH 7.36 ABG pCO2 51.2 H ABG pO2 105.3 H ABG HCO3 28.0 H ABG O2 Saturation 97.5 ABG Base Excess 1.8 FiO2 40% Sodium 137.4 Potassium 3.1 L Chloride 102 Carbon Dioxide 25 Anion Gap 10 BUN 16 Creatinine 0.80 Est GFR ( Amer) > 60 Est GFR (Non-Af Amer) > 60 Glucose 113 H Calcium 7.7 L Phosphorus Magnesium Blood Type Antibody Screen 04/04/17 04/04/17 03:50 05:37 WBC RBC Hgb Hct MCV MCH MCHC RDW Plt Count Seg Neutrophils % Lymphocytes % Monocytes % Eosinophils % Basophils % Absolute Neutrophils Absolute Lymphocytes Absolute Monocytes Absolute Eosinophils Absolute Basophils Carbonic Acid HCO3/H2CO3 Ratio ABG pH ABG pCO2 ABG pO2 ABG HCO3 ABG O2 Saturation ABG Base Excess FiO2 Sodium 137.4 Potassium 3.6 Chloride 107 Carbon Dioxide 24 Anion Gap 6 BUN 14 Creatinine 0.64 Est GFR ( Amer) > 60 Est GFR (Non-Af Amer) > 60 Glucose 150 H Calcium 7.6 L Phosphorus 3.5 Magnesium 2.0 Blood Type O NEGATIVE Antibody Screen NEGATIVE Impressions: Chest X-Ray 04/04/17 06:00 IMPRESSION: 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 The previously noted right perihilar mass/ infiltrate has decreased in size comparison the prior study. Assessment & Plan - Diagnosis (1) Acute on chronic respiratory failure with hypoxia and hypercapnia Is this a current diagnosis for this admission?: YesPlan: Patient on Bipap Have consulted Dr. Shin of pulmonary medicine per request (2) Severe sepsis Is this a current diagnosis for this admission?: YesPlan: [facility], patient grew Yolanda Tropicalis and had a fever on Fluconazole. Patient also had 3 negative AFB. Cavitary pulmonary lesion. Patient completed one week of Linezolid and Meropenem. I did review his discharge summary from this admission. Likely secondary to ongoing pneumonia. Continue patient on linezolid Imipenem, and caspofungin. (3) Acute renal failure Qualifiers: Acute renal failure type: with acute tubular necrosis Qualified Code (s): N17.0 - Acute kidney failure with tubular necrosis Is this a current diagnosis for this admission?: YesPlan: Improved (4) Anemia Qualifiers: Anemia type: other cause Other causes of anemia: chronic disease, other Qualified Code(s): D63.8 - Anemia in other chronic diseases classified elsewhere Is this a current diagnosis for this admission?: YesPlan: Patient with anemia of chronic disease as well as mild iron deficiency. Transfuse patient 2 units packed red blood cells (5) Pneumonia Qualifiers: Pneumonia type: due to unspecified organism Laterality: bilateral Lung location: unspecified part of lung Qualified Code(s): J18.9 - Pneumonia, unspecified organism Is this a current diagnosis for this admission?: YesPlan: Patient had recent diagnosis of cavitary pneumonia which was found to be polymicrobial with Yolanda including Yolanda tropicalis, aspergillus, and normal henrietta. Place patient on linezolid, imipenem, and caspofungin. Many strains of Yolanda tropicalis have inherent resistance to azoles. (6) Chronic pain Qualifiers: Chronic pain type: other chronic pain Qualified Code(s): G89.29 - Other chronic pain Is this a current diagnosis for this admission?: YesPlan: Plan to consult palliative care. Resume home OxyContin and oxycodone. (7) Chronically on opiate therapy Is this a current diagnosis for this admission?: Yes (8) dvt ppx Is this a current diagnosis for this admission?: Yes (9) gi ppx Is this a current diagnosis for this admission?: Yes - Time Time Spent with patient: 35 or more minutes - 65 minutes of time spent with patient and family - Plan Summary Plan Summary: Total time spent with patient including patient education, physical examination , discussion with consultants, and formulation of plan was 65 minutes.
--- NOTE | 2017-04-04 18:19 | PDOC CONSULTATION ---
Consultation Consult Date: 04/03/17 Attending physician:: DAMIAN ERDMAN Consult reason:: ACUTE/CHRONIC RESP FAILURE History of Present Illness Admission Date/PCP: 04/03/17 04:43 LAKSHMI GARCIA MD History of Present Illness: CHERIE SIDDIQUI is a 51 year old male with a past medical history of oxygen dependent COPD, severe emphysema with scarring, recurrent pneumonia, hillar adenopathy. Patient was released 7 days ago from [facility] following a 14 day hospitalization for respiratory failure and pneumonia. He presented to ED for cough,fever dyspnea and fever . Where he was diagnosed with severe sepsis with hypotension, tachycardia, hypoxia, pneumonia and leukocytosis. He started on BiPAP, Zosyn and vancomycin and referred to the hospitalist for admission. Patient is severely ill unable to cooperate Past Medical History Pulmonary Medical History: Reports: Chronic Obstructive Pulmonary Disease (COPD) , Pneumonia, Respiratory Failure Neurological Medical History: Denies: Seizures GI Medical History: Reports: Gastroesophageal Reflux Disease Hematology: Reports: Anemia Past Surgical History Past Surgical History: Reports: Orthopedic Surgery - back Social History Information Source: [facility] Records Lives with: Spouse/Significant other Smoking Status: Former Smoker Cigarettes Packs Per Day: 2 Number of Years Smokin Last Time Smoked: 7 days ago Passive smoke exposure as: Both Hx Recreational Drug Use: No Drugs: None Hx Prescription Drug Abuse: No - Advance Directive Resuscitation Status: Full Code Family History Family History: COPD Parental Family History Reviewed: No Children Family History Reviewed: No Sibling(s) Family History Reviewed.: No Medication/Allergy Home Medications: Albuterol Sulfate [Ventolin Hfa] 2 puff IH Q6HP PRN 04/03/17 Aspirin [Aspirin 81 mg Chewable Tablet] 81 mg PO DAILY 04/03/17 Calcium Carbonate [Calcium] 600 mg PO DAILY 04/03/17 Cyclobenzaprine HCl [Flexeril 10 mg Tablet] 10 mg PO TIDP PRN 04/03/17 Ferrous Sulfate [Feosol 325 mg Tablet] 325 mg PO BIDBS 04/03/17 Fluticasone/Salmeterol [Advair 500-50 Diskus 28 Dose] 1 inh IH Q12 04/03/17 Furosemide [Lasix 20 mg Tablet] 20 mg PO BIDP PRN 04/03/17 Gabapentin [Neurontin] 600 mg PO Q8 04/03/17 Guaifenesin [Mucinex Sr 600 mg Tablet.sa] 1,200 mg PO Q12HP PRN 04/03/17 Ibuprofen [Motrin 800 mg Tablet] 800 mg PO Q8HP PRN 04/03/17 Lactobacillus Acidophilus [Acidophilus] 1 tab PO DAILY 04/03/17 Loratadine [Claritin 10 mg Tablet] 10 mg PO DAILY 04/03/17 Montelukast Sodium [Singulair 10 mg Tablet] 10 mg PO QHS 04/03/17 Multivitamin [Tab-A-Phuong (Multiple Vitamin) Tablet] 1 tab PO DAILY 04/03/17 Oxycodone HCl [Oxy-Ir 5 mg Tablet] 20 mg PO 5XDP PRN 04/03/17 Oxycodone HCl [Oxycodone HCl ER] 60 mg PO Q6 04/03/17 Promethazine HCl [Phenergan 25 mg Tablet] 25 mg PO Q6HP PRN 04/03/17 Tiotropium [place] [Spiriva Respimat] 2 puff IH DAILY 04/03/17 Allergies/Adverse Reactions: No Known Allergies Allergy (Verified 10/23/16 10:10) Review of Systems ROS unobtainable: Other Physical Exam Vital Signs: Temp Pulse Resp BP Pulse Ox 97.5 F 94 16 100/66 100 04/03/17 01:30 04/03/17 07:51 04/03/17 07:51 04/03/17 07:31 04/03/17 07:51 General appearance: PRESENT: disheveled, mild distress, thin Head exam: PRESENT: atraumatic, normocephalic Eye exam: PRESENT: conjunctiva pale, EOMI Mouth exam: PRESENT: dry mucosa, neck supple, tongue midline, other - NIPPV Neck exam: ABSENT: carotid bruit, JVD, lymphadenopathy, thyromegaly Respiratory exam: PRESENT: crackles, decreased breath sounds, prolonged expiratory phas, rhonchi, symmetrical, wheezes Cardiovascular exam: PRESENT: RRR, +S1, +S2 Pulses: PRESENT: normal radial pulses GI/Abdominal exam: PRESENT: normal bowel sounds, soft. ABSENT: distended, guarding, mass, organolmegaly, rebound, tenderness Rectal exam: PRESENT: deferred Gentrourinary exam: PRESENT: indwelling catheter Musculoskeletal exam: PRESENT: normal inspection Neurological exam: PRESENT: awake Skin exam: PRESENT: dry, warm Results Laboratory Results: 04/03/17 06:00 Carbonic Acid 1.62 H HCO3/H2CO3 Ratio 17:1 ABG pH 7.35 ABG pCO2 53.8 H ABG pO2 100.1 H ABG HCO3 29.0 H ABG O2 Saturation 97.2 ABG Base Excess 2.8 FiO2 45% Impressions: Chest X-Ray 04/03/17 01:32 IMPRESSION: COPD WITH BULLOUS EMPHYSEMA AND CHRONIC SCARRING. POSSIBLE RIGHT PERIHILAR MASS. Assessment & Plan - Diagnosis (1) Chronically on opiate therapy Is this a current diagnosis for this admission?: Yes (2) Dyspnea Qualifiers: Dyspnea type: unspecified Qualified Code(s): R06.00 - Dyspnea, unspecified Is this a current diagnosis for this admission?: YesPlan: dependent NIPPV (3) Acute on chronic respiratory failure with hypoxia and hypercapnia Is this a current diagnosis for this admission?: YesPlan: antibiotic,bronchodialator advance bullous lung disease (4) Pneumonia Qualifiers: Pneumonia type: due to unspecified organism Laterality: bilateral Lung location: unspecified part of lung Qualified Code(s): J18.9 - Pneumonia, unspecified organism Is this a current diagnosis for this admission?: Yes (5) Sepsis Qualifiers: Sepsis type: sepsis due to unspecified organism Qualified Code(s): A41.9 - Sepsis, unspecified organism - Time Critical Time spent with patient: 35 or more minutes
--- NOTE | 2017-04-04 18:25 | PDOC PROGRESS REPORT ---
Subjective Progress Note for:: 04/04/17 Subjective:: much improved today Physical Exam Vital Signs: Temp Pulse Resp BP Pulse Ox 97.4 F 96 25 H 110/73 97 04/04/17 08:26 04/04/17 08:26 04/04/17 08:26 04/04/17 08:26 04/04/17 08:26 Intake & Output 04/03/17 04/04/17 04/05/17 06:59 06:59 06:59 Intake Total 4698 0 Output Total 200 1705 Balance -200 2993 0 Weight 57.9 kg General appearance: PRESENT: cooperative, disheveled, mild distress, thin, well- developed Head exam: PRESENT: atraumatic, normocephalic Eye exam: PRESENT: conjunctiva pale, EOMI Mouth exam: PRESENT: dry mucosa, neck supple, tongue midline, other - NIPPV Neck exam: ABSENT: carotid bruit, JVD, lymphadenopathy, thyromegaly Respiratory exam: PRESENT: decreased breath sounds, prolonged expiratory phas, rhonchi, symmetrical, wheezes Cardiovascular exam: PRESENT: RRR, +S1, +S2 Pulses: PRESENT: normal radial pulses GI/Abdominal exam: PRESENT: normal bowel sounds, soft. ABSENT: distended, guarding, mass, organolmegaly, rebound, tenderness Rectal exam: PRESENT: deferred Gentrourinary exam: PRESENT: indwelling catheter Musculoskeletal exam: PRESENT: normal inspection Neurological exam: PRESENT: alert, awake Psychiatric exam: PRESENT: normal mood Skin exam: PRESENT: dry, warm Results Laboratory Results: 04/04/17 03:50 04/04/17 03:50 04/03/17 04/03/17 04/04/17 09:59 16:10 03:50 WBC 7.6 RBC 2.62 L Hgb 7.7 L Hct 23.6 L MCV 90 MCH 29.2 MCHC 32.5 RDW 16.3 H Plt Count 269 Seg Neutrophils % 90.0 H Lymphocytes % 7.2 L Monocytes % 2.5 L Eosinophils % 0.1 Basophils % 0.2 Absolute Neutrophils 6.8 Absolute Lymphocytes 0.5 Absolute Monocytes 0.2 Absolute Eosinophils 0.0 Absolute Basophils 0.0 Carbonic Acid 1.54 H HCO3/H2CO3 Ratio 18:1 ABG pH 7.36 ABG pCO2 51.2 H ABG pO2 105.3 H ABG HCO3 28.0 H ABG O2 Saturation 97.5 ABG Base Excess 1.8 FiO2 40% Sodium 137.4 Potassium 3.1 L Chloride 102 Carbon Dioxide 25 Anion Gap 10 BUN 16 Creatinine 0.80 Est GFR ( Amer) > 60 Est GFR (Non-Af Amer) > 60 Glucose 113 H Calcium 7.7 L Phosphorus Magnesium Blood Type Antibody Screen 04/04/17 04/04/17 03:50 05:37 WBC RBC Hgb Hct MCV MCH MCHC RDW Plt Count Seg Neutrophils % Lymphocytes % Monocytes % Eosinophils % Basophils % Absolute Neutrophils Absolute Lymphocytes Absolute Monocytes Absolute Eosinophils Absolute Basophils Carbonic Acid HCO3/H2CO3 Ratio ABG pH ABG pCO2 ABG pO2 ABG HCO3 ABG O2 Saturation ABG Base Excess FiO2 Sodium 137.4 Potassium 3.6 Chloride 107 Carbon Dioxide 24 Anion Gap 6 BUN 14 Creatinine 0.64 Est GFR ( Amer) > 60 Est GFR (Non-Af Amer) > 60 Glucose 150 H Calcium 7.6 L Phosphorus 3.5 Magnesium 2.0 Blood Type O NEGATIVE Antibody Screen NEGATIVE Impressions: Chest X-Ray 04/04/17 06:00 IMPRESSION: 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 The previously noted right perihilar mass/ infiltrate has decreased in size comparison the prior study. Assessment & Plan - Diagnosis (1) Chronically on opiate therapy Is this a current diagnosis for this admission?: Yes (2) Dyspnea Qualifiers: Dyspnea type: unspecified Qualified Code(s): R06.00 - Dyspnea, unspecified Is this a current diagnosis for this admission?: Yes (3) Acute on chronic respiratory failure with hypoxia and hypercapnia Is this a current diagnosis for this admission?: Yes (5) Sepsis Qualifiers: Sepsis type: sepsis due to unspecified organism Qualified Code(s): A41.9 - Sepsis, unspecified organism Is this a current diagnosis for this admission?: No - Time Critical Time spent with patient: 25-34 minutes
[2017-04-04 19:33] LABS: HEMATOCRIT 29.9 % (37.9-51.0); HGB HCT DIFFERENCE -0.5; MEAN CORPUSCULAR HEMOGLOBIN 28.4 pg (27.0-33.4); MEAN CORPUSCULAR HGB CONC 32.7 g/dL (32.0-36.0); MEAN CORPUSCULAR VOLUME 87 fl (80-97); RED BLOOD COUNT 3.44 10^6/uL (4.35-5.55); RED CELL DISTRIBUTION WIDTH 16.9 % (11.5-14.0); WHITE BLOOD COUNT 13.9 10^3/uL (4.0-10.5)
[2017-04-04 19:50] LABS: HEMOGLOBIN 9.8 g/dL (13.5-17.0)
[2017-04-04 19:53] LABS: BAND NEUTROPHILS % (MANUAL) 2 % (3-5); BASOPHILS % (MANUAL) 0 % (0-2); EOSINOPHILS % (MANUAL) 0 % (0-6); LYMPHOCYTES % (MANUAL) 3 % (13-45); TOTAL CELLS COUNTED 100
[2017-04-04 19:54] LABS: ANISOCYTOSIS 1+; OVALOCYTES SLIGHT; POIKILOCYTOSIS SLIGHT
[2017-04-04] MEDS: MONTELUKAST SODIUM 10 MG TABLET PO SCH (21:07)
[2017-04-05] MEDS: IPRATROPIUM/ALBUTEROL 0.5-2.5 MG/3 ML AMPUL NEB SCH ×4 (00:05→11:23)
[2017-04-05] MEDS: OXYCODONE HCL IR 5 MG TABLET PO PRN ×3 (00:40→13:41)
[2017-04-05] MEDS: IMIPENEM/CILASTATIN SODIUM 1,000 MG in NORMAL SALINE 250 ML IV SCH ×4 (00:47→18:12)
[2017-04-05] MEDS: METHYLPREDNISOLONE INJ 125 MG/2 ML SDV IV SCH ×4 (03:26→21:44)
[2017-04-05 05:00] LABS: ABSOLUTE LYMPHOCYTES (AUTO) 0.6 10^3/uL (0.5-4.7); ABSOLUTE MONOCYTES (AUTO) 0.3 10^3/uL (0.1-1.4); ABSOLUTE NEUT (AUTO) 10.6 10^3/uL (1.7-8.2); BASOPHILS % (AUTO) 0.2 % (0-2); LYMPHOCYTES % (AUTO) 5.3 % (13-45); MEAN CORPUSCULAR HEMOGLOBIN 28.6 pg (27.0-33.4); MEAN CORPUSCULAR HGB CONC 33.4 g/dL (32.0-36.0); MEAN CORPUSCULAR VOLUME 86 fl (80-97); MONOCYTES % (AUTO) 2.5 % (3-13); RED BLOOD COUNT 3.15 10^6/uL (4.35-5.55); RED CELL DISTRIBUTION WIDTH 17.1 % (11.5-14.0); WHITE BLOOD COUNT 11.5 10^3/uL (4.0-10.5)
[2017-04-05 05:06] LABS: ANION GAP 8 (5-19); BLOOD UREA NITROGEN 19 mg/dL (7-20); CALCIUM 8.1 mg/dL (8.4-10.2); CARBON DIOXIDE 27 mmol/L (22-30); CHLORIDE 104 mmol/L (98-107); CREATININE RESULT 0.69 mg/dL (0.52-1.25); GLUCOSE 125 mg/dL (75-110); POTASSIUM 3.3 mmol/L (3.6-5.0); SODIUM 139.1 mmol/L (137-145)
[2017-04-05] MEDS: IPRATROPIUM/ALBUTEROL 0.5-2.5 MG/3 ML AMPUL NEB PRN (05:08)
[2017-04-05 05:36] LABS: ARTERIAL BLOOD BASE EXCESS 2.1 mmol/L; ARTERIAL BLOOD O2 SATURATION 83.4 % (94-98)
[2017-04-05] MEDS: GABAPENTIN 300 MG CAPSULE PO SCH ×3 (05:40→21:46)
[2017-04-05] MEDS: LANSOPRAZOLE 30 MG TAB.RAP.DR PO SCH ×2 (05:41→18:13)
[2017-04-05] MEDS: HEPARIN SOD (PORCINE) 5,000 UNIT/ML 1 ML SYRINGE SUBCUT SCH (05:41)
[2017-04-05] MEDS ORDERED: POTASSIUM CHLORIDE 10 MEQ TABLET.SA PO ONE (07:14)
[2017-04-05] MEDS: DOCUSATE SODIUM 100 MG CAPSULE PO SCH ×2 (07:50→18:13)
[2017-04-05] MEDS: OXYCODONE HCL SR 40 MG TABLET PO SCH ×3 (07:58→21:49)
[2017-04-05] MEDS: FLUTICASONE/SALMETEROL DISKUS 500-50 MCG/DOSE IH SCH ×2 (07:58→21:45)
[2017-04-05] MEDS: LORATADINE 10 MG TABLET PO SCH (07:58)
[2017-04-05] MEDS: GUAIFENESIN 600 MG TABLET.SA PO SCH ×2 (07:59→21:47)
[2017-04-05] MEDS: OXYCODONE HCL SR 10 MG TABLET PO SCH ×3 (07:59→21:50)
[2017-04-05] MEDS: ASPIRIN 81 MG TABLET, CHEWABLE PO SCH (07:59)
[2017-04-05] MEDS: IRON POLYSACCHARIDES COMPLEX 150 MG CAPSULE PO SCH (07:59)
[2017-04-05] MEDS: FAMOTIDINE INJ/PF 20 MG/2 ML SDV IV SCH (08:00)
[2017-04-05] MEDS: ROFLUMILAST 500 MCG TABLET PO SCH (08:00)
[2017-04-05] MEDS: LACTOBACILLUS ACIDOPHILUS 250 MG TAB PO SCH (08:00)
[2017-04-05] MEDS: MICAFUNGIN SODIUM 100 MG in NORMAL SALINE 100 ML IV SCH (08:01)
[2017-04-05] MEDS: LINEZOLID 300 ML IV SCH ×2 (08:01→21:47)
--- NOTE | 2017-04-05 10:06 | RADIOLOGY REPORT (SQ) ---
EXAM DESCRIPTION: CHEST PA/LAT COMPLETED DATE/TIME: 04/05/2017 9:56 am REASON FOR STUDY: pna COMPARISON: None. EXAM PARAMETERS: NUMBER OF VIEWS: two views TECHNIQUE: Digital Frontal and Lateral radiographic views of the chest acquired. RADIATION DOSE: NA LIMITATIONS: none FINDINGS: LUNGS AND PLEURA: Stable severe diffuse underlying lung disease with increased patchy bila teral lower lobe airspace opacities with small bilateral pleural effusions. MEDIASTINUM AND HILAR STRUCTURES: Stable in size and contour. HEART AND VASCULAR STRUCTURES: Heart stable in size. No evidence for failure. BONES: No acute findings. HARDWARE: None in the chest. OTHER: No other significant finding. IMPRESSION: ACUTE ON CHRONIC LUNG DISEASE WITH SMALL BILATERAL PLEURAL EFFUSIONS. DIFFERENTIAL INCL UDES MULTIFOCAL PNEUMONIA OR ASYMMETRIC PULMONARY EDEMA. TECHNICAL DOCUMENTATION: JOB ID: [id number] [employer]- All Rights Reserved
[2017-04-05] MEDS: LEVALBUTEROL HCL NEB 1.25 MG/3 ML AMPUL NEB SCH ×4 (12:18→23:24)
--- NOTE | 2017-04-05 13:14 | PDOC PROGRESS REPORT ---
Subjective Progress Note for:: 04/05/17 Subjective:: Patient reports he is feeling better today. Patient denies chest pain, abdominal pain, nausea, vomiting, fevers, chills, diarrhea, constipation, headache, new onset weakness. Physical Exam Vital Signs: Temp Pulse Resp BP Pulse Ox 97.4 F 94 24 H 94/69 L 96 04/05/17 03:58 04/05/17 05:10 04/05/17 05:10 04/05/17 03:58 04/05/17 05:10 Intake & Output 04/04/17 04/05/17 04/06/17 06:59 06:59 06:59 Intake Total 4698 3430 Output Total 1705 1325 Balance 2993 2105 Weight 57.9 kg 61.8 kg Exam: General: A+Ox3, mild respiratory distress, older than stated age appearing, chronically ill appearing HEENT: AT/NC, PERRL, EOMI, oropharynx is moist, pink, no scleral icterus, no conjunctival injection Neck: No JVD, trachea midline Chest: Mild tachypnea, rhonchi RLL, prolonged expiratory phase CV: Regular rate and rhythm, normal S1 and S2, no rub or gallop; Abdomen: Soft, nontender to palpation, nondistended, active bowel sounds; no rebound, rigidity, or guarding Extremities: No cyanosis; + clubbing, +1 pitting edema Neuro: Cranial nerves II through XII grossly intact without focal deficit, A+Ox3 Psych: Normal mood and affect Results Laboratory Results: 04/05/17 04:35 04/05/17 04:35 04/04/17 04/04/17 04/04/17 05:37 14:15 19:25 WBC 13.9 H RBC 3.44 L Hgb 9.8 L D Hct 29.9 L MCV 87 MCH 28.4 MCHC 32.7 RDW 16.9 H Plt Count 314 Seg Neutrophils % Not Reportable Lymphocytes % Not Reportable Monocytes % Not Reportable Eosinophils % Not Reportable Basophils % Not Reportable Absolute Neutrophils Not Reportable Absolute Lymphocytes Not Reportable Absolute Monocytes Not Reportable Absolute Eosinophils Not Reportable Absolute Basophils Not Reportable Carbonic Acid 1.37 H HCO3/H2CO3 Ratio 19:1 ABG pH 7.39 ABG pCO2 45.6 H ABG pO2 53.8 L ABG HCO3 27.0 H ABG O2 Saturation 87.5 L ABG Base Excess 1.7 FiO2 5 LPM Sodium Potassium Chloride Carbon Dioxide Anion Gap BUN Creatinine Est GFR ( Amer) Est GFR (Non-Af Amer) Glucose Calcium Magnesium Blood Type O NEGATIVE Antibody Screen NEGATIVE 04/05/17 04/05/17 04/05/17 04:35 04:35 05:25 WBC 11.5 H RBC 3.15 L Hgb 9.0 L Hct 27.0 L MCV 86 MCH 28.6 MCHC 33.4 RDW 17.1 H Plt Count 285 Seg Neutrophils % 92.0 H Lymphocytes % 5.3 L Monocytes % 2.5 L Eosinophils % 0.0 Basophils % 0.2 Absolute Neutrophils 10.6 H Absolute Lymphocytes 0.6 Absolute Monocytes 0.3 Absolute Eosinophils 0.0 Absolute Basophils 0.0 Carbonic Acid 1.42 H HCO3/H2CO3 Ratio 19:1 ABG pH 7.38 ABG pCO2 47.2 H ABG pO2 48.6 L ABG HCO3 27.5 H ABG O2 Saturation 83.4 L ABG Base Excess 2.1 FiO2 40% Sodium 139.1 Potassium 3.3 L Chloride 104 Carbon Dioxide 27 Anion Gap 8 BUN 19 Creatinine 0.69 Est GFR ( Amer) > 60 Est GFR (Non-Af Amer) > 60 Glucose 125 H Calcium 8.1 L Magnesium 2.0 Blood Type Antibody Screen Impressions: Chest X-Ray 04/04/17 06:00 IMPRESSION: 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 The previously noted right perihilar mass/ infiltrate has decreased in size comparison the prior study. Assessment & Plan - Diagnosis (1) End stage COPD Is this a current diagnosis for this admission?: YesPlan: With Copd exacerbation Taper solu-medrol and change albuterol to xopenex Continue scheduled breathing treatments Consult palliative care for possible hospice/palliative care referral (2) Acute on chronic respiratory failure with hypoxia and hypercapnia Is this a current diagnosis for this admission?: YesPlan: Patient off Bipap Have consulted Dr. Shin of pulmonary medicine per request Patient appears to be near his baseline. ABG obtained this morning was a mixed venous gas (3) Severe sepsis Is this a current diagnosis for this admission?: YesPlan: Upon review of patient record from [facility], patient grew Yolanda Tropicalis and had a fever on Fluconazole. Patient also had 3 negative AFB. Cavitary pulmonary lesion. Patient completed one week of Linezolid and Meropenem. I did review his discharge summary from this admission. Likely secondary to ongoing pneumonia. Continue patient on linezolid, imipenem , and caspofungin day#2. Have sent Aspergillus antibodies . (4) Acute renal failure Qualifiers: Acute renal failure type: with acute tubular necrosis Qualified Code (s): N17.0 - Acute kidney failure with tubular necrosis Is this a current diagnosis for this admission?: YesPlan: Improved. (5) Anemia Qualifiers: Anemia type: other cause Other causes of anemia: chronic disease, other Qualified Code(s): D63.8 - Anemia in other chronic diseases classified elsewhere Is this a current diagnosis for this admission?: YesPlan: Patient with anemia of chronic disease as well as mild iron deficiency. Transfused patient 2 units packed red blood cells on 04/04/17 On iron replacement (6) Pneumonia Qualifiers: Pneumonia type: due to unspecified organism Laterality: right Lung location: lower lobe of lung Qualified Code(s): J18.1 - Lobar pneumonia, unspecified organism Is this a current diagnosis for this admission?: YesPlan: Patient had recent diagnosis of cavitary pneumonia which was found to be polymicrobial with Yolanda including Yolanda tropicalis, aspergillus, and normal henrietta. Place patient on linezolid, imipenem, and caspofungin. Many strains of Yolanda tropicalis have inherent resistance to azoles. Doing well with this. Pending cultures. Aggressive pulmonary tolieting. (7) Chronic pain Qualifiers: Chronic pain type: other chronic pain Qualified Code(s): G89.29 - Other chronic pain Is this a current diagnosis for this admission?: YesPlan: Plan to consult palliative care. On OxyContin and oxycodone at slightly decreased doses (8) Chronically on opiate therapy Is this a current diagnosis for this admission?: Yes (9) dvt ppx Is this a current diagnosis for this admission?: Yes (10) Hypokalemia Is this a current diagnosis for this admission?: YesPlan: Replete and recheck. Magnesium normal - Time Time Spent with patient: 25-34 minutes Medications reviewed and adjusted accordingly: Yes - Inpatient Certification Based on my medical assessment, after consideration of the patient's comorbidities, presenting symptoms, or acuity I expect that the services needed warrant INPATIENT care.: Yes I certify that my determination is in accordance with my understanding of Medicare's requirements for reasonable and necessary INPATIENT services [42 CFR 412.3e].: Yes Medical Necessity: Need for Nebulizer Therapy and Monitoring of Response, Need for IV Antibiotics Post Hospital Care: D/C Programming Intern Documentation - Plan Summary Plan Summary: Total time spent with patient including patient education, physical examination , discussion with consultants, and formulation of plan was 33 minutes.
[2017-04-05] MEDS: FLUTICASONE NASAL SPRAY 50 MCG/SPRY 120 SPRAY/16 GM NASL SCH ×2 (13:42→21:45)
[2017-04-05] MEDS: LIDOCAINE 5% (700 MG) TRANSDERMAL ADH..PATCH TP SCH (13:42)
[2017-04-05] MEDS ORDERED: FUROSEMIDE 20 MG TABLET PO ONE (13:45)
[2017-04-05] MEDS: ENOXAPARIN SODIUM INJ 40 MG/0.4 ML DISP.SYRIN SUBCUT SCH (14:26)
[2017-04-05] MEDS: FAMOTIDINE 20 MG TABLET PO SCH (21:44)
[2017-04-05] MEDS: MONTELUKAST SODIUM 10 MG TABLET PO SCH (21:49)
[2017-04-06] MEDS: IMIPENEM/CILASTATIN SODIUM 1,000 MG in NORMAL SALINE 250 ML IV SCH ×4 (00:19→22:01)
[2017-04-06] MEDS ORDERED: DILTIAZEM HCL INJ 25 MG/5 ML VIAL ONE (01:07)
[2017-04-06] MEDS ORDERED: DILTIAZEM HCL INJ 25 MG/5 ML VIAL IV ONE (01:15)
[2017-04-06 02:37] LABS: CREATINE KINASE MB 0.45 ng/mL (<4.55); TROPONIN I 0.034 ng/mL
[2017-04-06] MEDS: METHYLPREDNISOLONE INJ 125 MG/2 ML SDV IV SCH ×3 (03:08→21:54)
[2017-04-06] MEDS: LEVALBUTEROL HCL NEB 1.25 MG/3 ML AMPUL NEB SCH ×5 (04:47→20:55)
[2017-04-06] MEDS: GABAPENTIN 300 MG CAPSULE PO SCH ×3 (05:59→21:52)
[2017-04-06] MEDS: LANSOPRAZOLE 30 MG TAB.RAP.DR PO SCH ×2 (06:00→17:00)
[2017-04-06] MEDS: OXYCODONE HCL SR 40 MG TABLET PO SCH ×3 (06:01→21:53)
[2017-04-06] MEDS: OXYCODONE HCL SR 10 MG TABLET PO SCH ×3 (06:02→21:52)
[2017-04-06 06:27] LABS: ABSOLUTE LYMPHOCYTES (AUTO) 0.6 10^3/uL (0.5-4.7); ABSOLUTE MONOCYTES (AUTO) 0.3 10^3/uL (0.1-1.4); BASOPHILS % (AUTO) 0.5 % (0-2); HEMATOCRIT 28.1 % (37.9-51.0); HEMOGLOBIN 9.5 g/dL (13.5-17.0); HGB HCT DIFFERENCE 0.4; LYMPHOCYTES % (AUTO) 6.5 % (13-45); MEAN CORPUSCULAR HEMOGLOBIN 28.8 pg (27.0-33.4); MEAN CORPUSCULAR HGB CONC 33.7 g/dL (32.0-36.0); MEAN CORPUSCULAR VOLUME 86 fl (80-97); RED BLOOD COUNT 3.28 10^6/uL (4.35-5.55); RED CELL DISTRIBUTION WIDTH 17.1 % (11.5-14.0); WHITE BLOOD COUNT 8.9 10^3/uL (4.0-10.5)
[2017-04-06 06:31] LABS: ALANINE AMINOTRANSFERASE 27 U/L (21-72); ALBUMIN 2.1 g/dL (3.5-5.0); ALKALINE PHOSPHATASE 88 U/L (38-126); ANION GAP 6 (5-19); ASPARTATE AMINO TRANSFERASE 17 U/L (17-59); BILIRUBIN,DIRECT 0.5 mg/dL (0.0-0.4); BILIRUBIN,TOTAL 0.5 mg/dL (0.2-1.3); BLOOD UREA NITROGEN 21 mg/dL (7-20); CARBON DIOXIDE 31 mmol/L (22-30); CHLORIDE 102 mmol/L (98-107); CREATININE RESULT 0.61 mg/dL (0.52-1.25); GLUCOSE 117 mg/dL (75-110); SODIUM 139.2 mmol/L (137-145); TOTAL PROTEIN 5.3 g/dL (6.3-8.2)
[2017-04-06 06:35] LABS: POTASSIUM 2.8 mmol/L (3.6-5.0)
[2017-04-06] MEDS ORDERED: POTASSIUM CHLORIDE 10 MEQ TABLET.SA PO ONE ×3 (06:40→08:00)
[2017-04-06] MEDS ORDERED: POTASSI CL 20 MEQ/50 ML RIDER 20 MEQ/50 ML RTUPB IV ONE (06:47)
[2017-04-06] MEDS: POTASSI CL 20 MEQ/50 ML RIDER 20 MEQ/50 ML RTUPB IV SCH ×2 (07:01→08:33)
[2017-04-06] MEDS: ENOXAPARIN SODIUM INJ 40 MG/0.4 ML DISP.SYRIN SUBCUT SCH (10:41)
[2017-04-06] MEDS: FLUTICASONE NASAL SPRAY 50 MCG/SPRY 120 SPRAY/16 GM NASL SCH ×2 (10:42→21:54)
[2017-04-06] MEDS: IRON POLYSACCHARIDES COMPLEX 150 MG CAPSULE PO SCH (10:43)
[2017-04-06] MEDS: ASPIRIN 81 MG TABLET, CHEWABLE PO SCH (10:43)
[2017-04-06] MEDS: ROFLUMILAST 500 MCG TABLET PO SCH (10:43)
[2017-04-06] MEDS: OXYCODONE HCL IR 5 MG TABLET PO PRN ×2 (10:44→17:45)
[2017-04-06] MEDS: GUAIFENESIN 600 MG TABLET.SA PO SCH ×2 (10:45→21:53)
[2017-04-06] MEDS: LACTOBACILLUS ACIDOPHILUS 250 MG TAB PO SCH (10:46)
[2017-04-06] MEDS: FLUTICASONE/SALMETEROL DISKUS 500-50 MCG/DOSE IH SCH ×2 (10:46→21:54)
[2017-04-06] MEDS: LORATADINE 10 MG TABLET PO SCH (10:46)
[2017-04-06] MEDS: FAMOTIDINE 20 MG TABLET PO SCH ×2 (10:46→21:53)
[2017-04-06] MEDS: LIDOCAINE 5% (700 MG) TRANSDERMAL ADH..PATCH TP SCH (10:47)
[2017-04-06] MEDS: DOCUSATE SODIUM 100 MG CAPSULE PO SCH ×2 (10:48→17:46)
[2017-04-06] MEDS: MICAFUNGIN SODIUM 100 MG in NORMAL SALINE 100 ML IV SCH (12:35)
[2017-04-06] MEDS: LINEZOLID 300 ML IV SCH ×2 (12:36→21:54)
--- NOTE | 2017-04-06 13:40 | PDOC PROGRESS REPORT ---
Subjective Progress Note for:: 04/06/17 Subjective:: Patient had reports of tachycardia overnight. Improved with Cardizem. Patient reports that he is feeling better today. Patient denies chest pain, abdominal pain, nausea, vomiting, fevers, chills, diarrhea, constipation, headache, new onset weakness. Physical Exam Vital Signs: Temp Pulse Resp BP Pulse Ox 97.7 F 66 24 H 100/57 L 98 04/06/17 03:35 04/06/17 03:35 04/06/17 03:35 04/06/17 03:35 04/06/17 03:35 Intake & Output 04/05/17 04/06/17 04/07/17 06:59 06:59 06:59 Intake Total 3430 1677 Output Total 1325 1250 Balance 2105 427 Weight 61.8 kg 61 kg Exam: General: A+Ox3, mild baseline respiratory distress, older than stated age appearing, chronically ill appearing HEENT: AT/NC, PERRL, EOMI, oropharynx is moist, pink, no scleral icterus, no conjunctival injection Neck: No JVD, trachea midline Chest: Mild tachypnea, rhonchi RLL, prolonged expiratory phase, mild end expiratory wheezing CV: Regular rate and rhythm, normal S1 and S2, no rub or gallop; Abdomen: Soft, nontender to palpation, nondistended, active bowel sounds; no rebound, rigidity, or guarding Extremities: No cyanosis; + clubbing, trace edema Neuro: Cranial nerves II through XII grossly intact without focal deficit, A+Ox3 Psych: Normal mood and affect Results Laboratory Results: 04/06/17 05:59 04/06/17 05:59 04/06/17 04/06/17 05:59 05:59 WBC 8.9 RBC 3.28 L Hgb 9.5 L Hct 28.1 L MCV 86 MCH 28.8 MCHC 33.7 RDW 17.1 H Plt Count 331 Seg Neutrophils % 90.0 H Lymphocytes % 6.5 L Monocytes % 3.0 Eosinophils % 0.0 Basophils % 0.5 Absolute Neutrophils 8.0 Absolute Lymphocytes 0.6 Absolute Monocytes 0.3 Absolute Eosinophils 0.0 Absolute Basophils 0.0 Sodium 139.2 Potassium 2.8 L* Chloride 102 Carbon Dioxide 31 H Anion Gap 6 BUN 21 H Creatinine 0.61 Est GFR ( Amer) > 60 Est GFR (Non-Af Amer) > 60 Glucose 117 H Calcium 8.0 L Total Bilirubin 0.5 AST 17 ALT 27 Alkaline Phosphatase 88 Total Protein 5.3 L Albumin 2.1 L 04/06/17 04/06/17 04/06/17 01:12 01:12 02:03 Creatine Kinase Cancelled CK-MB (CK-2) Cancelled 0.45 Troponin I Cancelled 0.034 04/06/17 02:03 Creatine Kinase < 20 L CK-MB (CK-2) Troponin I Impressions: Chest X-Ray 04/05/17 00:00 IMPRESSION: ACUTE ON CHRONIC LUNG DISEASE WITH SMALL BILATERAL PLEURAL EFFUSIONS. DIFFERENTIAL INCLUDES MULTIFOCAL PNEUMONIA OR ASYMMETRIC PULMONARY EDEMA. Assessment & Plan - Diagnosis (1) End stage COPD Is this a current diagnosis for this admission?: YesPlan: With Copd exacerbation Taper solu-medrol and change albuterol to xopenex Continue scheduled breathing treatments Consult palliative care for possible hospice/palliative care referral (2) Acute on chronic respiratory failure with hypoxia and hypercapnia Is this a current diagnosis for this admission?: YesPlan: Patient off Bipap Have consulted Dr. Shin of pulmonary medicine per request Patient appears to be near his baseline. Patient is compensated (3) Severe sepsis Is this a current diagnosis for this admission?: YesPlan: Upon review of patient record from [facility], patient grew Yolanda Tropicalis and had a fever on Fluconazole. Patient also had 3 negative AFB. Cavitary pulmonary lesion. Patient completed one week of Linezolid and Meropenem. I did review his discharge summary from this admission. Likely secondary to ongoing pneumonia. Continue patient on linezolid, imipenem , and caspofungin day#3. Current cultures revealed only Yolanda albicans and Yolanda dubliniensis. Have sent Aspergillus antibodies. (4) Acute renal failure Qualifiers: Acute renal failure type: with acute tubular necrosis Qualified Code (s): N17.0 - Acute kidney failure with tubular necrosis Is this a current diagnosis for this admission?: YesPlan: Improved. (5) Anemia Qualifiers: Anemia type: other cause Other causes of anemia: chronic disease, other Qualified Code(s): D63.8 - Anemia in other chronic diseases classified elsewhere Is this a current diagnosis for this admission?: YesPlan: Patient with anemia of chronic disease as well as mild iron deficiency. Transfused patient 2 units packed red blood cells on 04/04/17 On iron replacement (6) Pneumonia Qualifiers: Pneumonia type: due to unspecified organism Laterality: right Lung location: lower lobe of lung Qualified Code(s): J18.1 - Lobar pneumonia, unspecified organism Is this a current diagnosis for this admission?: YesPlan: Patient had recent diagnosis of cavitary pneumonia which was found to be polymicrobial with Yolanda including Yolanda tropicalis, aspergillus, and normal henrietta. Place patient on linezolid, imipenem, and caspofungin. Many strains of Yolanda tropicalis have inherent resistance to azoles. Doing well with this. Pending cultures. Aggressive pulmonary tolieting. Add mucomyst to this. AFB smear negative so far. (7) Chronic pain Qualifiers: Chronic pain type: other chronic pain Qualified Code(s): G89.29 - Other chronic pain Is this a current diagnosis for this admission?: YesPlan: Plan to consult palliative care. On OxyContin and oxycodone at slightly decreased doses (8) Chronically on opiate therapy Is this a current diagnosis for this admission?: Yes (9) dvt ppx Is this a current diagnosis for this admission?: Yes (10) Hypokalemia Is this a current diagnosis for this admission?: YesPlan: Replete and recheck. 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
--- NOTE | 2017-04-06 13:58 | EKG REPORT ---
SEVERITY:- BORDERLINE ECG - SINUS RHYTHM SHORT OR INTERVAL, ACCELERATED AV CONDUCTION BORDERLINE T ABNORMALITIES, ANT-LAT LEADS : Confirmed by: Clarice Ahn MD 06-Apr-2017 13:57:17
--- NOTE | 2017-04-06 13:59 | EKG REPORT ---
SEVERITY:- ABNORMAL ECG - SINUS TACHYCARDIA RUN OF VENTRICULAR PREMATURE COMPLEXES BIATRIAL ABNORMALITIES INFERIOR INJURY, PROBABLE EARLY ACUTE INFARCT BORDERLINE ST ELEVATION, LATERAL LEADS : Confirmed by: Clarice Ahn MD 06-Apr-2017 13:57:25
[2017-04-06 15:53] LABS: ANION GAP 8 (5-19); BLOOD UREA NITROGEN 19 mg/dL (7-20); CALCIUM 7.9 mg/dL (8.4-10.2); CARBON DIOXIDE 29 mmol/L (22-30); CHLORIDE 102 mmol/L (98-107); CREATININE RESULT 0.65 mg/dL (0.52-1.25); GLUCOSE 148 mg/dL (75-110); POTASSIUM 3.4 mmol/L (3.6-5.0); SODIUM 138.9 mmol/L (137-145)
--- NOTE | 2017-04-06 16:14 | PDOC PROGRESS REPORT ---
Subjective Progress Note for:: 04/06/17 Subjective:: in good spirits Physical Exam Vital Signs: Temp Pulse Resp BP Pulse Ox 97.7 F 78 16 125/73 99 04/06/17 07:43 04/06/17 11:58 04/06/17 11:58 04/06/17 07:43 04/06/17 08:50 Intake & Output 04/05/17 04/06/17 04/07/17 06:59 06:59 06:59 Intake Total 3430 1677 Output Total 1325 1250 Balance 2105 427 Weight 61.8 kg 61 kg General appearance: PRESENT: cooperative, disheveled, thin, well-developed Head exam: PRESENT: atraumatic, normocephalic Eye exam: PRESENT: conjunctiva pale Mouth exam: PRESENT: dry mucosa, neck supple, tongue midline Teeth exam: PRESENT: poor dentation Neck exam: ABSENT: carotid bruit, JVD, lymphadenopathy, thyromegaly Respiratory exam: PRESENT: decreased breath sounds, prolonged expiratory phas Cardiovascular exam: PRESENT: RRR, +S1, +S2 Pulses: PRESENT: normal radial pulses GI/Abdominal exam: PRESENT: normal bowel sounds, soft. ABSENT: distended, guarding, mass, organolmegaly, rebound, tenderness Rectal exam: PRESENT: deferred Musculoskeletal exam: PRESENT: normal inspection Neurological exam: PRESENT: alert, awake Psychiatric exam: PRESENT: normal mood Skin exam: PRESENT: dry, warm Results Laboratory Results: 04/06/17 05:59 04/06/17 05:59 04/06/17 04/06/17 04/06/17 05:59 05:59 05:59 WBC 8.9 RBC 3.28 L Hgb 9.5 L Hct 28.1 L MCV 86 MCH 28.8 MCHC 33.7 RDW 17.1 H Plt Count 331 Seg Neutrophils % 90.0 H Lymphocytes % 6.5 L Monocytes % 3.0 Eosinophils % 0.0 Basophils % 0.5 Absolute Neutrophils 8.0 Absolute Lymphocytes 0.6 Absolute Monocytes 0.3 Absolute Eosinophils 0.0 Absolute Basophils 0.0 Sodium 139.2 Potassium 2.8 L* Chloride 102 Carbon Dioxide 31 H Anion Gap 6 BUN 21 H Creatinine 0.61 Est GFR ( Amer) > 60 Est GFR (Non-Af Amer) > 60 Glucose 117 H Calcium 8.0 L Magnesium 1.9 Total Bilirubin 0.5 AST 17 ALT 27 Alkaline Phosphatase 88 Total Protein 5.3 L Albumin 2.1 L 04/03/17 13:10 Sputum Gram Stain - Final 04/03/17 13:10 Sputum Sputum Culture - Final C.albicans/C.dubliniensis Reduced Normal Pia 04/06/17 04/06/17 04/06/17 01:12 01:12 02:03 Creatine Kinase Cancelled CK-MB (CK-2) Cancelled 0.45 Troponin I Cancelled 0.034 04/06/17 02:03 Creatine Kinase < 20 L CK-MB (CK-2) Troponin I Impressions: Chest X-Ray 04/05/17 00:00 IMPRESSION: ACUTE ON CHRONIC LUNG DISEASE WITH SMALL BILATERAL PLEURAL EFFUSIONS. DIFFERENTIAL INCLUDES MULTIFOCAL PNEUMONIA OR ASYMMETRIC PULMONARY EDEMA. Assessment & Plan - Diagnosis (1) Chronically on opiate therapy Is this a current diagnosis for this admission?: Yes (2) Dyspnea Qualifiers: Dyspnea type: unspecified Qualified Code(s): R06.00 - Dyspnea, unspecified Is this a current diagnosis for this admission?: Yes (3) Acute on chronic respiratory failure with hypoxia and hypercapnia Is this a current diagnosis for this admission?: Yes (5) Sepsis Qualifiers: Sepsis type: sepsis due to unspecified organism Qualified Code(s): A41.9 - Sepsis, unspecified organism Is this a current diagnosis for this admission?: No
[2017-04-06] MEDS: ACETYLCYSTEINE 20% SOLN 800 MG/4 ML VIAL.NEB NEB SCH (20:55)
[2017-04-06] MEDS: MONTELUKAST SODIUM 10 MG TABLET PO SCH (21:53)
--- NOTE | 2017-04-06 22:55 | Palliative Consultation Report ---
Consultation From:: JAHAIRA HUYNH Consult Reason: ACUTE/CHRONIC RESP FAILURE - HPI Chief Complaint: Dyspnea, weaknes HPI: Palliative Care Initial Visit 04/06/17 12:20- 1:00 PM Appreciate palliative care consult with this 51 year old man who suffers with COPD. He has been readmitted for pneumonia and sepsis, after spending 2 weeks in another hospital, and only one week home. He came in with acute respiratory distress and severe weakness. He is able to sit up on side of bed to eat his lunch and is able to ambulate to BR with his 's help. Mr. Shaffer reports having chronic back pain after two unscuessful back surgeries. He tells me the pain medication he is receiving is helping his pain now, but it does not take the pain away. he says no medication has been able to take the pain cmpletely away. Patient denies nausea or diarrhea at this time. He is hoping that the antibiotics this time will eradicate the cause of the pneumonia and he can go home soon. He has been doing well until this illness. His state he has not been hospitalized for 7 months before this time. She said last year he had been admitted many times. Mr. Shaffer already has requested DNR, but he has a lot of hope for getting back on his feet and doing well. He is going to change to have Dr. Shin be his skin care instructor as an outpatient also. Mrs. Shaffer states they have oxygen and all DME they need at home. Onset: Last week Onset/Duration: Gradual Quality of Pain: Achy Severity: Moderate Associated Symptoms: Shortness of breath, Weakness Exacerbated by: Movement Past Medical History(Consults) - General Information Source: Patient, Relative, [facility] Records Home Medications: Albuterol Sulfate [Ventolin Hfa] 2 puff IH Q6HP PRN 04/03/17 Aspirin [Aspirin 81 mg Chewable Tablet] 81 mg PO DAILY 04/03/17 Calcium Carbonate [Calcium] 600 mg PO DAILY 04/03/17 Cyclobenzaprine HCl [Flexeril 10 mg Tablet] 10 mg PO TIDP PRN 04/03/17 Ferrous Sulfate [Feosol 325 mg Tablet] 325 mg PO BIDBS 04/03/17 Fluticasone/Salmeterol [Advair 500-50 Diskus 28 Dose] 1 inh IH Q12 04/03/17 Furosemide [Lasix 20 mg Tablet] 20 mg PO BIDP PRN 04/03/17 Gabapentin [Neurontin] 600 mg PO Q8 04/03/17 Guaifenesin [Mucinex Sr 600 mg Tablet.sa] 1,200 mg PO Q12HP PRN 04/03/17 Ibuprofen [Motrin 800 mg Tablet] 800 mg PO Q8HP PRN 04/03/17 Lactobacillus Acidophilus [Acidophilus] 1 tab PO DAILY 04/03/17 Loratadine [Claritin 10 mg Tablet] 10 mg PO DAILY 04/03/17 Montelukast Sodium [Singulair 10 mg Tablet] 10 mg PO QHS 04/03/17 Multivitamin [Tab-A-Phuong (Multiple Vitamin) Tablet] 1 tab PO DAILY 04/03/17 Oxycodone HCl [Oxy-Ir 5 mg Tablet] 20 mg PO 5XDP PRN 04/03/17 Oxycodone HCl [Oxycodone HCl ER] 60 mg PO Q6 04/03/17 Promethazine HCl [Phenergan 25 mg Tablet] 25 mg PO Q6HP PRN 04/03/17 Tiotropium Bolton [Spiriva Respimat] 2 puff IH DAILY 04/03/17 Allergies/Adverse Reactions: No Known Allergies Allergy (Verified 10/23/16 10:10) - Social History Lives with: Spouse/Significant other Family History: COPD Parental Family History Reviewed: No Children Family History Reviewed: No Sibling(s) Family History Reviewed.: No Smoking Status: Former Smoker Cigarettes Packs Per Day: 2 Number of Years Smokin Last Time Smoked: 7 days ago Frequency of Alcohol Use: None Drugs: None Pulmonary Medical History: Reports: Hx COPD, Hx Pneumonia, Hx Respiratory Failure Neurological Medical History: Denies: Hx Seizures Renal/ Medical History: Denies: Hx Peritoneal Dialysis GI Medical History: Reports: Hx Gastroesophageal Reflux Disease, Hx Endoscopy Musculoskeltal History Note: Two previous back surgeries with constant back pain Psychiatric Medical History: Reports: Hx Anxiety Hematology: Reports: Anemia - Surgical History Past Surgical History: Reports: Hx Orthopedic Surgery - back Review of systems Constitutional: Fever, Weakness Cardiovascular: Orthopnea Respiratory: Cough, Short of breath, Wheezing Geniturinary: No symptoms reported Musculoskeltal: Back pain Neurological/Psychological: Anxiety Ojective:Exam Vital Signs: Temp Pulse Resp BP Pulse Ox 97.6 F 76 20 122/77 100 04/06/17 21:14 04/06/17 21:14 04/06/17 21:14 04/06/17 21:14 04/06/17 21:14 Intake & Output 04/05/17 04/06/17 04/07/17 06:59 06:59 06:59 Intake Total 3430 1677 500 Output Total 1325 1250 450 Balance 2105 427 50 Weight 61.8 kg 61 kg - General General Appearance: Anxious In distress: None Note:: Awake, alert, no dysnea, using oxygen per NC. Able to eat and swallow easily without cough but decreased appetite. Able to ambulate to BR with minimal help. No cyanosis, pale. - Respiratory Respiratory Status: No respiratory distress Breath sounds: Wheezing, Fine Crackle - Extremities Upper extremity: Normal inspection Lower extremities: Normal inspection - Neurological Orientation: AAOx4 Speech: Normal Objective-Diagnostic Laboratory: 04/06/17 05:59 04/06/17 15:19 04/06/17 04/06/17 04/06/17 05:59 05:59 05:59 WBC 8.9 RBC 3.28 L Hgb 9.5 L Hct 28.1 L MCV 86 MCH 28.8 MCHC 33.7 RDW 17.1 H Plt Count 331 Seg Neutrophils % 90.0 H Lymphocytes % 6.5 L Monocytes % 3.0 Eosinophils % 0.0 Basophils % 0.5 Absolute Neutrophils 8.0 Absolute Lymphocytes 0.6 Absolute Monocytes 0.3 Absolute Eosinophils 0.0 Absolute Basophils 0.0 Sodium 139.2 Potassium 2.8 L* Chloride 102 Carbon Dioxide 31 H Anion Gap 6 BUN 21 H Creatinine 0.61 Est GFR ( Amer) > 60 Est GFR (Non-Af Amer) > 60 Glucose 117 H Calcium 8.0 L Magnesium 1.9 Total Bilirubin 0.5 AST 17 ALT 27 Alkaline Phosphatase 88 Total Protein 5.3 L Albumin 2.1 L 04/06/17 04/06/17 05:59 15:19 WBC RBC Hgb Hct MCV MCH MCHC RDW Plt Count Seg Neutrophils % Lymphocytes % Monocytes % Eosinophils % Basophils % Absolute Neutrophils Absolute Lymphocytes Absolute Monocytes Absolute Eosinophils Absolute Basophils Sodium 138.9 Potassium 3.4 L Chloride 102 Carbon Dioxide 29 Anion Gap 8 BUN 19 Creatinine 0.65 Est GFR ( Amer) > 60 Est GFR (Non-Af Amer) > 60 Glucose 148 H Calcium 7.9 L Magnesium Total Bilirubin AST ALT Alkaline Phosphatase Total Protein Albumin 04/03/17 13:10 Sputum Gram Stain - Final 04/03/17 13:10 Sputum Sputum Culture - Final C.albicans/C.dubliniensis Reduced Normal Pia 04/06/17 04/06/17 04/06/17 01:12 01:12 02:03 Creatine Kinase Cancelled CK-MB (CK-2) Cancelled 0.45 Troponin I Cancelled 0.034 04/06/17 02:03 Creatine Kinase < 20 L CK-MB (CK-2) Troponin I Plan and Recommendation Plan and Recommendation: Mr. Shaffer denies needing a different pain medication at this time for his chronic pain. He is satiisfied witht eh improvement he is making in his breathing with current treatment. He denies nausea or diarrhea. Both Mr and Mrs Shaffer stte tht they would like palliative care support at home after discharge. They will ask Dr. Juarez for referral after discharge. No needs noted at this time and no requests. Will follow. - Time Spent with Patient Time spent with patient: 15 to 30 Minutes Time: 25 minutes with patient, 15 min chart review
[2017-04-06] MEDS: PHARMACY COMMUNICATION ORDER MC SCH (23:18)
[2017-04-07] MEDS: LEVALBUTEROL HCL NEB 1.25 MG/3 ML AMPUL NEB SCH ×6 (00:17→19:58)
[2017-04-07] MEDS: METHYLPREDNISOLONE INJ 125 MG/2 ML SDV IV SCH (05:52)
[2017-04-07] MEDS: IMIPENEM/CILASTATIN SODIUM 1,000 MG in NORMAL SALINE 250 ML IV SCH (05:52)
[2017-04-07] MEDS: GABAPENTIN 300 MG CAPSULE PO SCH ×3 (05:52→21:59)
[2017-04-07] MEDS: OXYCODONE HCL SR 10 MG TABLET PO SCH ×3 (05:52→21:59)
[2017-04-07] MEDS: OXYCODONE HCL SR 40 MG TABLET PO SCH ×3 (05:53→23:12)
[2017-04-07] MEDS: LANSOPRAZOLE 30 MG TAB.RAP.DR PO SCH ×2 (05:53→16:23)
[2017-04-07] MEDS ORDERED: POTASSIUM CHLORIDE 10 MEQ TABLET.SA PO ONE (07:33)
[2017-04-07] MEDS: ACETYLCYSTEINE 20% SOLN 800 MG/4 ML VIAL.NEB NEB SCH (07:51)
[2017-04-07] MEDS: OXYCODONE HCL IR 5 MG TABLET PO PRN ×3 (08:25→16:24)
[2017-04-07] MEDS: ASPIRIN 81 MG TABLET, CHEWABLE PO SCH (10:27)
[2017-04-07] MEDS: LACTOBACILLUS ACIDOPHILUS 250 MG TAB PO SCH (10:28)
[2017-04-07] MEDS: GUAIFENESIN 600 MG TABLET.SA PO SCH ×2 (10:28→22:00)
[2017-04-07] MEDS: LORATADINE 10 MG TABLET PO SCH (10:28)
[2017-04-07] MEDS: IRON POLYSACCHARIDES COMPLEX 150 MG CAPSULE PO SCH (10:29)
[2017-04-07] MEDS: FAMOTIDINE 20 MG TABLET PO SCH ×2 (10:30→21:59)
[2017-04-07] MEDS: ROFLUMILAST 500 MCG TABLET PO SCH (10:30)
[2017-04-07] MEDS: DOCUSATE SODIUM 100 MG CAPSULE PO SCH ×2 (10:30→18:42)
[2017-04-07] MEDS: LIDOCAINE 5% (700 MG) TRANSDERMAL ADH..PATCH TP SCH (10:33)
[2017-04-07] MEDS: FLUTICASONE NASAL SPRAY 50 MCG/SPRY 120 SPRAY/16 GM NASL SCH ×2 (10:34→22:21)
[2017-04-07] MEDS: FLUTICASONE/SALMETEROL DISKUS 500-50 MCG/DOSE IH SCH ×2 (10:36→22:21)
[2017-04-07] MEDS: MICAFUNGIN SODIUM 100 MG in NORMAL SALINE 100 ML IV SCH (10:38)
[2017-04-07] MEDS: LINEZOLID 300 ML IV SCH (10:39)
[2017-04-07] MEDS: ENOXAPARIN SODIUM INJ 40 MG/0.4 ML DISP.SYRIN SUBCUT SCH (10:41)
[2017-04-07] MEDS ORDERED: IMIPENEM/CILASTATIN SODIUM 500 MG in NORMAL SALINE 100 ML IV SCH (12:00)
[2017-04-07 13:09] LABS: ARTERIAL BLOOD BASE EXCESS 8.4 mmol/L; ARTERIAL BLOOD O2 SATURATION 97.8 % (94-98)
--- NOTE | 2017-04-07 14:19 | PDOC PROGRESS REPORT ---
Subjective Progress Note for:: 04/07/17 Subjective:: Patient states that his breathing is feeling much better than it did on admission. It is approaching baseline but not quite there yet. He does feel better on the Oxymizer nasal cannula but does not have this at home. He denies fever, chills, chest pain, hemoptysis, abdominal pain. Physical Exam Vital Signs: Temp Pulse Resp BP Pulse Ox 97.7 F 74 18 135/72 H 99 04/07/17 11:15 04/07/17 12:53 04/07/17 12:53 04/07/17 11:15 04/07/17 12:53 Intake & Output 04/06/17 04/07/17 04/08/17 06:59 06:59 06:59 Intake Total 1677 2180 340 Output Total 1250 1155 950 Balance 427 1025 -610 Weight 61 kg 61.3 kg GENERAL: No acute distress, appears much older than age HEENT: Conjunctiva clear, nonicteric, moist mucous membranes, no JVD, midline trachea RESPIRATORY: Decreased bilateral breath sounds, no overt wheezes or rhonchi CARDIAC: Regular rate and rhythm, no murmurs/gallops/rubs ABDOMEN: Soft, nondistended, nontender, positive bowel sounds, no rebound, no guarding EXTREMETIES: No edema, cyanosis, clubbing NEUROLOGIC: Alert, oriented to person/place/time, CN's grossly intact, no focal deficits SKIN: No rash, wounds PSYCH: Normal mood, normal affect Results Laboratory Results: 04/06/17 05:59 04/06/17 15:19 04/06/17 04/06/17 04/07/17 05:59 15:19 12:10 Carbonic Acid 1.32 HCO3/H2CO3 Ratio 24:1 ABG pH 7.49 H ABG pCO2 44.0 ABG pO2 96.3 ABG HCO3 32.8 H ABG O2 Saturation 97.8 ABG Base Excess 8.4 FiO2 10L Sodium 138.9 Potassium 3.4 L Chloride 102 Carbon Dioxide 29 Anion Gap 8 BUN 19 Creatinine 0.65 Est GFR ( Amer) > 60 Est GFR (Non-Af Amer) > 60 Glucose 148 H Calcium 7.9 L 04/04/17 13:10 Sputum Fungal Smear - Final 04/04/17 13:10 Sputum Fungal Smear - Final 04/04/17 13:10 Sputum Fungal Smear - Final 04/04/17 13:10 Sputum AFB Smear Concentration - Final 04/04/17 13:10 Sputum Acid Fast Bacilli Smear - Final 04/03/17 13:10 Sputum Gram Stain - Final 04/03/17 13:10 Sputum Sputum Culture - Final C.albicans/C.dubliniensis Reduced Normal Pia 04/06/17 04/06/17 04/06/17 01:12 01:12 02:03 Creatine Kinase Cancelled CK-MB (CK-2) Cancelled 0.45 Troponin I Cancelled 0.034 04/06/17 02:03 Creatine Kinase < 20 L CK-MB (CK-2) Troponin I Impressions: Chest X-Ray 04/05/17 00:00 IMPRESSION: ACUTE ON CHRONIC LUNG DISEASE WITH SMALL BILATERAL PLEURAL EFFUSIONS. DIFFERENTIAL INCLUDES MULTIFOCAL PNEUMONIA OR ASYMMETRIC PULMONARY EDEMA. Assessment & Plan - Diagnosis (1) Sepsis Qualifiers: Sepsis type: sepsis due to unspecified organism Qualified Code(s): A41.9 - Sepsis, unspecified organism Is this a current diagnosis for this admission?: YesPlan: Secondary to pneumonia. White blood count now normal. Blood pressure stable. Afebrile. (2) Pneumonia Qualifiers: Pneumonia type: due to unspecified organism Laterality: right Lung location: lower lobe of lung Qualified Code(s): J18.1 - Lobar pneumonia, unspecified organism Is this a current diagnosis for this admission?: YesPlan: Patient has cavitary pneumonia. AFB negative. Per discharge documentation patient was to follow-up with his pulmonary medicine doctor at [facility] for evaluation and possible bronchoscopy. Patient is also followed by Dr. Shin of pulmonary medicine locally. I have discussed case with Dr. Shin and we will discontinue IV antibiotics. Start oral Augmentin. Start Diflucan for Yolanda and sputum. Records from [facility] indicate the patient had light growth of Aspergillus in the sputum during hospitalization there recently. Further pulmonary medicine physician decision was made not to treat this at they did not feel there was a definite pulmonary infection associated with this. (3) Acute on chronic respiratory failure with hypoxia and hypercapnia Is this a current diagnosis for this admission?: YesPlan: Patient is chronic oxygen dependent. He subjectively feels better with Oxymizer. We will have to see if we can obtain this as an outpatient. (4) End stage COPD Is this a current diagnosis for this admission?: YesPlan: Palliative care has evaluated patient and will follow him as an outpatient. Continue nebulizer treatments. Wean off steroids as quickly as possible. (5) Acute renal failure Qualifiers: Acute renal failure type: with acute tubular necrosis Qualified Code (s): N17.0 - Acute kidney failure with tubular necrosis Is this a current diagnosis for this admission?: Yes (6) Anemia Qualifiers: Anemia type: other cause Other causes of anemia: chronic disease, other Qualified Code(s): D63.8 - Anemia in other chronic diseases classified elsewhere Is this a current diagnosis for this admission?: Yes (7) Hypokalemia Is this a current diagnosis for this admission?: YesPlan: Place as needed. (8) Chronic pain Qualifiers: Chronic pain type: other chronic pain Qualified Code(s): G89.29 - Other chronic pain Is this a current diagnosis for this admission?: YesPlan: Chronic opiate dependence. Continue OxyContin and oxycodone. (9) Do not resuscitate Is this a current diagnosis for this admission?: Yes - Time Time Spent with patient: 35 or more minutes Anticipated discharge: Home Within: within 72 hours
[2017-04-07] MEDS: ONDANSETRON HCL INJ/PF 4 MG/2 ML SDV IV PRN ×2 (16:24→22:01)
[2017-04-07] MEDS: MONTELUKAST SODIUM 10 MG TABLET PO SCH (21:58)
[2017-04-07] MEDS: AMOXICILLIN TR/POT CLAVULANATE 500-125 MG TAB PO SCH (21:58)
[2017-04-07] MEDS: PHARMACY COMMUNICATION ORDER MC SCH (23:50)
[2017-04-08] MEDS: LEVALBUTEROL HCL NEB 1.25 MG/3 ML AMPUL NEB SCH ×7 (00:23→23:29)
[2017-04-08] MEDS: GABAPENTIN 300 MG CAPSULE PO SCH ×3 (06:43→21:40)
[2017-04-08] MEDS: AMOXICILLIN TR/POT CLAVULANATE 500-125 MG TAB PO SCH ×3 (06:43→21:40)
[2017-04-08] MEDS: LANSOPRAZOLE 30 MG TAB.RAP.DR PO SCH ×2 (06:43→18:46)
[2017-04-08] MEDS: OXYCODONE HCL SR 10 MG TABLET PO SCH ×3 (06:49→21:46)
[2017-04-08] MEDS: OXYCODONE HCL SR 40 MG TABLET PO SCH ×3 (06:50→21:46)
[2017-04-08 07:05] LABS: ANION GAP 7 (5-19); BLOOD UREA NITROGEN 16 mg/dL (7-20); CALCIUM 8.3 mg/dL (8.4-10.2); CARBON DIOXIDE 34 mmol/L (22-30); CHLORIDE 97 mmol/L (98-107); CREATININE RESULT 0.58 mg/dL (0.52-1.25); GLUCOSE 69 mg/dL (75-110); POTASSIUM 3.8 mmol/L (3.6-5.0); SODIUM 138.2 mmol/L (137-145)
[2017-04-08 07:10] LABS: HGB HCT DIFFERENCE -0.6; MEAN CORPUSCULAR HEMOGLOBIN 28.9 pg (27.0-33.4); MEAN CORPUSCULAR HGB CONC 32.9 g/dL (32.0-36.0); MEAN CORPUSCULAR VOLUME 88 fl (80-97); RED BLOOD COUNT 4.09 10^6/uL (4.35-5.55); RED CELL DISTRIBUTION WIDTH 16.7 % (11.5-14.0); WHITE BLOOD COUNT 11.2 10^3/uL (4.0-10.5)
[2017-04-08 07:14] LABS: HEMOGLOBIN 11.8 g/dL (13.5-17.0)
[2017-04-08 07:38] LABS: BASOPHILS % (MANUAL) 0 % (0-2); EOSINOPHILS % (MANUAL) 0 % (0-6); LYMPHOCYTES % (MANUAL) 16 % (13-45); TOTAL CELLS COUNTED 100
[2017-04-08 07:49] LABS: OVALOCYTES SLIGHT; POIKILOCYTOSIS SLIGHT; TEAR DROP CELLS SLIGHT
[2017-04-08] MEDS: OXYCODONE HCL IR 5 MG TABLET PO PRN ×2 (09:20→12:47)
[2017-04-08] MEDS: FLUTICASONE/SALMETEROL DISKUS 500-50 MCG/DOSE IH SCH ×2 (09:43→21:41)
[2017-04-08] MEDS: LORATADINE 10 MG TABLET PO SCH (09:44)
[2017-04-08] MEDS: GUAIFENESIN 600 MG TABLET.SA PO SCH ×2 (09:44→21:40)
[2017-04-08] MEDS: LACTOBACILLUS ACIDOPHILUS 250 MG TAB PO SCH (09:44)
[2017-04-08] MEDS: DOCUSATE SODIUM 100 MG CAPSULE PO SCH ×2 (09:44→18:46)
[2017-04-08] MEDS: IRON POLYSACCHARIDES COMPLEX 150 MG CAPSULE PO SCH (09:45)
[2017-04-08] MEDS: FLUCONAZOLE 100 MG TABLET PO SCH (09:45)
[2017-04-08] MEDS: FLUTICASONE NASAL SPRAY 50 MCG/SPRY 120 SPRAY/16 GM NASL SCH ×2 (09:45→21:41)
[2017-04-08] MEDS: ASPIRIN 81 MG TABLET, CHEWABLE PO SCH (09:45)
[2017-04-08] MEDS: FAMOTIDINE 20 MG TABLET PO SCH ×2 (09:45→21:40)
[2017-04-08] MEDS: ROFLUMILAST 500 MCG TABLET PO SCH (09:45)
[2017-04-08] MEDS: LIDOCAINE 5% (700 MG) TRANSDERMAL ADH..PATCH TP SCH (09:46)
[2017-04-08] MEDS: ENOXAPARIN SODIUM INJ 40 MG/0.4 ML DISP.SYRIN SUBCUT SCH (09:49)
[2017-04-08] MEDS ORDERED: PREDNISONE 20 MG TABLET PO SCH (10:00)
--- NOTE | 2017-04-08 13:01 | RADIOLOGY REPORT (SQ) ---
EXAM DESCRIPTION: CT ABD/PELVIS WITH IV ONLY COMPLETED DATE/TIME: 04/08/2017 11:43 am REASON FOR STUDY: RLQ pain COMPARISON: None. TECHNIQUE: CT scan of the abdomen and pelvis performed using helical scanning technique with dynamic intravenous contrast injection. No oral contrast. Images reviewed with lung, soft tissue, and bone windows. Reconstructed coronal and sagittal MPR images reviewed. Delayed images for evaluation of the urinary system also acquired. All images stored on PACS. All CT scanners at this facility use dose modulation, iterative reconstruction, and/or weight based d osing when appropriate to reduce radiation dose to as low as reasonably achievable (ALARA). [facility]: Dose Right [facility]: CareDose [facility]: Dose Right [facility]: Teradose 4D [facility]: Five-Thirty CONTRAST TYPE AND DOSE: 69 mL Isovue 370- low osmolar. RENAL FUNCTION: BUN 16 creatinine 0.58. RADIATION DOSE: . LIMITATIONS: Metallic artifact from hardware in the lumbar spine. FINDINGS: LOWER CHEST: See separate report of the CT of the chest. LIVER: Normal size. No masses. There is mild prominence of the intrahepatic ducts. The common bile duct is mildly dilated, measuring 8 mm. SPLEEN: Normal size. No focal lesions. PANCREAS: No masses. No significant calcifications. No adjacent inflammation or peripancreatic fluid collections. Pancreatic duct not dilated. GALLBLADDER: Distended. No identified stones by CT criteria. No inflammatory changes to suggest chol ecystitis. ADRENAL GLANDS: No significant masses or asymmetry. RIGHT KIDNEY AND URETER: No solid masses. No significant calcifications. No hydronephrosis or hyd roureter. LEFT KIDNEY AND URETER: No solid masses. No significant calcifications. No hydronephrosis or hydr oureter. AORTA AND VESSELS: No aneurysm. No dissection. Renal arteries, SMA, celiac without stenosis. RETROPERITONEUM: No retroperitoneal adenopathy, hemorrhage or masses. BOWEL AND PERITONEAL CAVITY: No masses or inflammatory changes. No free fluid or peritoneal masses. APPENDIX: Not visualized. PELVIS: No mass. Small amount of free fluid. Normal bladder. ABDOMINAL WALL: No masses. No hernias. BONES: No significant or acute findings. Surgical changes with hardware in the lower lumbar spine. . OTHER: No other significant finding. IMPRESSION: 1. DISTENDED GALLBLADDER. MILD DILATION OF THE BILE DUCTS. NO PANCREATIC DUCT DILATION. RECOMMEND FURTHER EVALUATION WITH RIGHT UPPER QUADRANT ULTRASOUND. 2. SMALL AMOUNT OF FREE FLUID IN THE PELVIS. ETIOLOGY AND SIGNIFICANCE NOT APPARENT. 3. CORTICAL CYST IN THE RIGHT KIDNEY. 4. NO OTHER SIGNIFICANT OR ACUTE FINDING IN THE ABDOMEN OR PELVIS ON CT SCAN WITH IV CONTRAST. TECHNICAL DOCUMENTATION: JOB ID: [id number] Quality ID # [id number]: Final reports with documentation of one or more dose reduction techniques (e.g., Au tomated exposure control, adjustment of the mA and/or kV according to patient size, use of iterative reconstruction technique) 2010 [employer]- All Rights Reserved
--- NOTE | 2017-04-08 13:19 | RADIOLOGY REPORT (SQ) ---
EXAM DESCRIPTION: CT CHEST WITH COMPLETED DATE/TIME: 04/08/2017 11:43 am REASON FOR STUDY: f/u cavitary ROSS lesion COMPARISON: Chest x-ray dated 04/05/2017. Chest CT dated 01/09/2016. TECHNIQUE: CT scan of the chest performed using helical scanning technique with dynamic intravenous contrast injection. Images reviewed with lung, soft tissue and bone windows. Reconstructed coronal and sagittal MPR images reviewed. All images stored on PACS. All CT scanners at this facility use dose modulation, iterative reconstruction, and/or weight based d osing when appropriate to reduce radiation dose to as low as reasonably achievable (ALARA). [facility]: Dose Right [facility]: CareDose [facility]: Dose Right [facility]: Teradose 4D [facility]: Février 46 CONTRAST TYPE AND DOSE: contrast/concentration: Isovue 370.00 mg/ml; Total Contrast Delivered: 69.0 ml; Total Saline Delivered: 65.0 ml RENAL FUNCTION: BUN 16 creatinine 0.58. RADIATION DOSE: Up-to-date CT equipment and radiation dose reduction techniques were employed. CTDIv ol: 4.9 - 5.1 mGy. DLP: 633 mGy-cm. . LIMITATIONS: None. FINDINGS: LUNGS AND PLEURA: Severe bullous emphysema with extensive scarring. Small pleural effusio ns. Patchy airspace disease in the posterior left lower lobe. Large bulla in the left upper lobe wi th nodular thickening of the wall. HILAR AND MEDIASTINAL STRUCTURES: No identified masses or abnormal nodes. HEART AND VASCULAR STRUCTURES: No aneurysm or dissection. No central pulmonary emboli. No pericardi al effusion. HARDWARE: None in the chest. UPPER ABDOMEN: No significant findings. Limited exam. THYROID AND OTHER SOFT TISSUES: No masses. No adenopathy. BONES: No significant finding. OTHER: No other significant finding. IMPRESSION: SEVERE BULLOUS EMPHYSEMA WITH EXTENSIVE SCARRING. SMALL PLEURAL EFFUSIONS. PATCHY AIRS PACE DISEASE IN THE POSTERIOR LEFT LOWER LOBE COULD INDICATE PNEUMONIA. LARGE BULLA IN THE LEFT UPPE R LOBE HAS DEVELOPED IRREGULAR NODULAR THICKENING OF THE WALL WHICH MAY BE DUE TO SUPERIMPOSED INFLAM MATION OR INFECTION. ATYPICAL APPEARANCE FOR MALIGNANCY BUT NOT EXCLUDED. TECHNICAL DOCUMENTATION: JOB ID: [id number] Quality ID # [id number]: Final reports with documentation of one or more dose reduction techniques (e.g., Au tomated exposure control, adjustment of the mA and/or kV according to patient size, use of iterative reconstruction technique) 2010 [employer]- All Rights Reserved
--- NOTE | 2017-04-08 16:30 | PDOC PROGRESS REPORT ---
Subjective Progress Note for:: 04/08/17 Subjective:: Patient complains of right-sided abdominal pain. He states that his breathing is feeling much better than it did on admission. It is approaching baseline but not quite there yet. He denies fever, chills, chest pain, hemoptysis. Physical Exam Vital Signs: Temp Pulse Resp BP Pulse Ox 98.9 F 116 H 20 118/80 95 04/08/17 12:27 04/08/17 12:27 04/08/17 12:27 04/08/17 12:27 04/08/17 12:27 Intake & Output 04/07/17 04/08/17 04/09/17 06:59 06:59 06:59 Intake Total 2180 1377 200 Output Total 1155 2550 Balance 1025 -1173 200 Weight 61.3 kg 64 kg GENERAL: No acute distress, appears much older than age HEENT: Conjunctiva clear, nonicteric, moist mucous membranes, no JVD, midline trachea RESPIRATORY: Decreased bilateral breath sounds, no overt wheezes or rhonchi CARDIAC: Regular rate and rhythm, no murmurs/gallops/rubs ABDOMEN: Right-sided abdominal tenderness, positive bowel sounds, no rebound, no guarding EXTREMETIES: No edema, cyanosis, clubbing NEUROLOGIC: Alert, oriented to person/place/time, CN's grossly intact, no focal deficits SKIN: No rash, wounds PSYCH: Normal mood, normal affect Results Laboratory Results: 04/08/17 07:01 04/08/17 06:11 04/08/17 04/08/17 04/08/17 06:11 06:11 07:01 WBC Cancelled 11.2 H RBC Cancelled 4.09 L Hgb Cancelled 11.8 L D Hct Cancelled 36.0 L MCV Cancelled 88 MCH Cancelled 28.9 MCHC Cancelled 32.9 RDW Cancelled 16.7 H Plt Count Cancelled 397 Seg Neutrophils % Not Reportable Lymphocytes % Not Reportable Monocytes % Not Reportable Eosinophils % Not Reportable Basophils % Not Reportable Absolute Neutrophils Not Reportable Absolute Lymphocytes Not Reportable Absolute Monocytes Not Reportable Absolute Eosinophils Not Reportable Absolute Basophils Not Reportable Sodium 138.2 Potassium 3.8 Chloride 97 L Carbon Dioxide 34 H Anion Gap 7 BUN 16 Creatinine 0.58 Est GFR ( Amer) > 60 Est GFR (Non-Af Amer) > 60 Glucose 69 L Calcium 8.3 L 04/03/17 08:37 Blood Blood Culture - Final NO GROWTH IN 5 DAYS 04/05/17 22:05 Sputum AFB Smear Concentration - Final 04/05/17 22:05 Sputum Acid Fast Bacilli Smear - Final 04/03/17 07:07 Blood Blood Culture - Final NO GROWTH IN 5 DAYS 04/04/17 13:10 Sputum Fungal Smear - Final 04/04/17 13:10 Sputum Fungal Smear - Final 04/04/17 13:10 Sputum Fungal Smear - Final 04/06/17 04/06/17 04/06/17 01:12 01:12 02:03 Creatine Kinase Cancelled CK-MB (CK-2) Cancelled 0.45 Troponin I Cancelled 0.034 04/06/17 02:03 Creatine Kinase < 20 L CK-MB (CK-2) Troponin I Impressions: Chest X-Ray 04/05/17 00:00 IMPRESSION: ACUTE ON CHRONIC LUNG DISEASE WITH SMALL BILATERAL PLEURAL EFFUSIONS. DIFFERENTIAL INCLUDES MULTIFOCAL PNEUMONIA OR ASYMMETRIC PULMONARY EDEMA. Abdomen/Pelvis CT 04/08/17 00:00 IMPRESSION: 1. DISTENDED GALLBLADDER. MILD DILATION OF THE BILE DUCTS. NO PANCREATIC DUCT DILATION. RECOMMEND FURTHER EVALUATION WITH RIGHT UPPER QUADRANT ULTRASOUND. 2. SMALL AMOUNT OF FREE FLUID IN THE PELVIS. ETIOLOGY AND SIGNIFICANCE NOT APPARENT. 3. CORTICAL CYST IN THE RIGHT KIDNEY. 4. NO OTHER SIGNIFICANT OR ACUTE FINDING IN THE ABDOMEN OR PELVIS ON CT SCAN WITH IV CONTRAST. Chest CT 04/08/17 00:00 IMPRESSION: SEVERE BULLOUS EMPHYSEMA WITH EXTENSIVE SCARRING. SMALL PLEURAL EFFUSIONS. PATCHY AIRSPACE DISEASE IN THE POSTERIOR LEFT LOWER LOBE COULD INDICATE PNEUMONIA. LARGE BULLA IN THE LEFT UPPER LOBE HAS DEVELOPED IRREGULAR NODULAR THICKENING OF THE WALL WHICH MAY BE DUE TO SUPERIMPOSED INFLAMMATION OR INFECTION. ATYPICAL APPEARANCE FOR MALIGNANCY BUT NOT EXCLUDED. Assessment & Plan - Diagnosis (1) Sepsis Qualifiers: Sepsis type: sepsis due to unspecified organism Qualified Code(s): A41.9 - Sepsis, unspecified organism Is this a current diagnosis for this admission?: YesPlan: Secondary to pneumonia. White blood count slightly elevated. Blood pressure stable. Afebrile. (2) Pneumonia Qualifiers: Pneumonia type: due to unspecified organism Laterality: right Lung location: lower lobe of lung Qualified Code(s): J18.1 - Lobar pneumonia, unspecified organism Is this a current diagnosis for this admission?: YesPlan: Patient has cavitary pneumonia. AFB negative. Per discharge documentation patient was to follow-up with his pulmonary medicine doctor at [facility] (Dr. King Ro [phone]) for evaluation and possible bronchoscopy on 01/08/2017. I have had Dr. Ro patient twice today in order to discuss patient's care and have not received return phone call. Patient is also followed by Dr. Shin of pulmonary medicine locally. I have discussed case with Dr. Shin and we discontinued IV antibiotics. Continue oral Augmentin and Diflucan. Records from [facility] indicate the patient had light growth of Aspergillus in the sputum during hospitalization there recently. Further pulmonary medicine physician decision was made not to treat this at they did not feel there was a definite pulmonary infection associated with this. (3) Abdominal pain Is this a current diagnosis for this admission?: YesPlan: Abdominal CT shows gallbladder distention. We will check right upper quadrant ultrasound. (4) Acute on chronic respiratory failure with hypoxia and hypercapnia Is this a current diagnosis for this admission?: YesPlan: Patient is chronic oxygen dependent. He subjectively feels better with Oxymizer. We will have to see if we can obtain this as an outpatient. (5) End stage COPD Is this a current diagnosis for this admission?: YesPlan: Palliative care has evaluated patient and will follow him as an outpatient. Continue nebulizer treatments. Wean off prednisone SUMMER (6) Acute renal failure Qualifiers: Acute renal failure type: with acute tubular necrosis Qualified Code (s): N17.0 - Acute kidney failure with tubular necrosis Is this a current diagnosis for this admission?: Yes (7) Anemia Qualifiers: Anemia type: other cause Other causes of anemia: chronic disease, other Qualified Code(s): D63.8 - Anemia in other chronic diseases classified elsewhere Is this a current diagnosis for this admission?: Yes (8) Hypokalemia Is this a current diagnosis for this admission?: Yes (9) Chronic pain Qualifiers: Chronic pain type: other chronic pain Qualified Code(s): G89.29 - Other chronic pain Is this a current diagnosis for this admission?: Yes (10) Do not resuscitate Is this a current diagnosis for this admission?: Yes - Time Time Spent with patient: 35 or more minutes
--- NOTE | 2017-04-08 17:58 | PDOC PROGRESS REPORT ---
Subjective Progress Note for:: 04/07/17 Subjective:: in good spirits Physical Exam Vital Signs: Temp Pulse Resp BP Pulse Ox 97.6 F 64 18 126/65 H 99 04/07/17 15:26 04/07/17 15:26 04/07/17 15:26 04/07/17 15:26 04/07/17 15:26 Intake & Output 04/06/17 04/07/17 04/08/17 06:59 06:59 06:59 Intake Total 1677 2180 340 Output Total 1250 1155 950 Balance 427 1025 -610 Weight 61 kg 61.3 kg General appearance: PRESENT: no acute distress, cooperative, disheveled, well- developed Head exam: PRESENT: atraumatic, normocephalic Eye exam: PRESENT: conjunctiva pale, EOMI Mouth exam: PRESENT: dry mucosa, neck supple, tongue midline Neck exam: ABSENT: carotid bruit, JVD, lymphadenopathy, thyromegaly Respiratory exam: PRESENT: decreased breath sounds, prolonged expiratory phas, rales, rhonchi, symmetrical, unlabored Cardiovascular exam: PRESENT: RRR, +S1, +S2 Pulses: PRESENT: normal radial pulses GI/Abdominal exam: PRESENT: normal bowel sounds, soft. ABSENT: distended, guarding, mass, organolmegaly, rebound, tenderness Rectal exam: PRESENT: deferred Musculoskeletal exam: PRESENT: normal inspection Neurological exam: PRESENT: alert, awake Skin exam: PRESENT: dry, warm Results Laboratory Results: 04/06/17 05:59 04/06/17 15:19 04/07/17 12:10 Carbonic Acid 1.32 HCO3/H2CO3 Ratio 24:1 ABG pH 7.49 H ABG pCO2 44.0 ABG pO2 96.3 ABG HCO3 32.8 H ABG O2 Saturation 97.8 ABG Base Excess 8.4 FiO2 10L 04/04/17 13:10 Sputum Fungal Smear - Final 04/04/17 13:10 Sputum Fungal Smear - Final 04/04/17 13:10 Sputum Fungal Smear - Final 04/04/17 13:10 Sputum AFB Smear Concentration - Final 04/04/17 13:10 Sputum Acid Fast Bacilli Smear - Final 04/06/17 04/06/17 04/06/17 01:12 01:12 02:03 Creatine Kinase Cancelled CK-MB (CK-2) Cancelled 0.45 Troponin I Cancelled 0.034 04/06/17 02:03 Creatine Kinase < 20 L CK-MB (CK-2) Troponin I Impressions: Chest X-Ray 04/05/17 00:00 IMPRESSION: ACUTE ON CHRONIC LUNG DISEASE WITH SMALL BILATERAL PLEURAL EFFUSIONS. DIFFERENTIAL INCLUDES MULTIFOCAL PNEUMONIA OR ASYMMETRIC PULMONARY EDEMA. Assessment & Plan - Diagnosis (1) Chronically on opiate therapy Is this a current diagnosis for this admission?: Yes (2) Dyspnea Qualifiers: Dyspnea type: unspecified Qualified Code(s): R06.00 - Dyspnea, unspecified Is this a current diagnosis for this admission?: Yes (3) Acute on chronic respiratory failure with hypoxia and hypercapnia Is this a current diagnosis for this admission?: Yes (5) Sepsis Qualifiers: Sepsis type: sepsis due to unspecified organism Qualified Code(s): A41.9 - Sepsis, unspecified organism Is this a current diagnosis for this admission?: Yes
--- NOTE | 2017-04-08 18:00 | PDOC PROGRESS REPORT ---
Subjective Progress Note for:: 04/08/17 Subjective:: I am hurting pretty bad Physical Exam Vital Signs: Temp Pulse Resp BP Pulse Ox 98.2 F 106 H 20 118/77 95 04/08/17 16:25 04/08/17 16:30 04/08/17 16:30 04/08/17 16:25 04/08/17 16:30 Intake & Output 04/07/17 04/08/17 04/09/17 06:59 06:59 06:59 Intake Total 2180 1377 200 Output Total 1155 2550 Balance 1025 -1173 200 Weight 61.3 kg 64 kg General appearance: PRESENT: cooperative, disheveled, severe distress, thin, well-developed Head exam: PRESENT: atraumatic, normocephalic Eye exam: PRESENT: conjunctiva pale, EOMI Mouth exam: PRESENT: dry mucosa, neck supple Neck exam: ABSENT: carotid bruit, JVD, lymphadenopathy, thyromegaly Respiratory exam: PRESENT: decreased breath sounds, prolonged expiratory phas, rales, rhonchi, symmetrical Cardiovascular exam: PRESENT: RRR, +S1, +S2 Pulses: PRESENT: normal radial pulses GI/Abdominal exam: PRESENT: diminished bowel sounds, firm, guarding, rebound, rigid, tenderness - Greatest right upper quadrant Rectal exam: PRESENT: deferred Musculoskeletal exam: PRESENT: normal inspection Neurological exam: PRESENT: alert, awake Psychiatric exam: PRESENT: anxious Skin exam: PRESENT: dry, warm Results Laboratory Results: 04/08/17 07:01 04/08/17 06:11 04/08/17 04/08/17 04/08/17 06:11 06:11 07:01 WBC Cancelled 11.2 H RBC Cancelled 4.09 L Hgb Cancelled 11.8 L D Hct Cancelled 36.0 L MCV Cancelled 88 MCH Cancelled 28.9 MCHC Cancelled 32.9 RDW Cancelled 16.7 H Plt Count Cancelled 397 Seg Neutrophils % Not Reportable Lymphocytes % Not Reportable Monocytes % Not Reportable Eosinophils % Not Reportable Basophils % Not Reportable Absolute Neutrophils Not Reportable Absolute Lymphocytes Not Reportable Absolute Monocytes Not Reportable Absolute Eosinophils Not Reportable Absolute Basophils Not Reportable Sodium 138.2 Potassium 3.8 Chloride 97 L Carbon Dioxide 34 H Anion Gap 7 BUN 16 Creatinine 0.58 Est GFR ( Amer) > 60 Est GFR (Non-Af Amer) > 60 Glucose 69 L Calcium 8.3 L 04/03/17 08:37 Blood Blood Culture - Final NO GROWTH IN 5 DAYS 04/05/17 22:05 Sputum AFB Smear Concentration - Final 04/05/17 22:05 Sputum Acid Fast Bacilli Smear - Final 04/03/17 07:07 Blood Blood Culture - Final NO GROWTH IN 5 DAYS 04/06/17 04/06/17 04/06/17 01:12 01:12 02:03 Creatine Kinase Cancelled CK-MB (CK-2) Cancelled 0.45 Troponin I Cancelled 0.034 04/06/17 02:03 Creatine Kinase < 20 L CK-MB (CK-2) Troponin I Impressions: Chest X-Ray 04/05/17 00:00 IMPRESSION: ACUTE ON CHRONIC LUNG DISEASE WITH SMALL BILATERAL PLEURAL EFFUSIONS. DIFFERENTIAL INCLUDES MULTIFOCAL PNEUMONIA OR ASYMMETRIC PULMONARY EDEMA. Abdomen/Pelvis CT 04/08/17 00:00 IMPRESSION: 1. DISTENDED GALLBLADDER. MILD DILATION OF THE BILE DUCTS. NO PANCREATIC DUCT DILATION. RECOMMEND FURTHER EVALUATION WITH RIGHT UPPER QUADRANT ULTRASOUND. 2. SMALL AMOUNT OF FREE FLUID IN THE PELVIS. ETIOLOGY AND SIGNIFICANCE NOT APPARENT. 3. CORTICAL CYST IN THE RIGHT KIDNEY. 4. NO OTHER SIGNIFICANT OR ACUTE FINDING IN THE ABDOMEN OR PELVIS ON CT SCAN WITH IV CONTRAST. Chest CT 04/08/17 00:00 IMPRESSION: SEVERE BULLOUS EMPHYSEMA WITH EXTENSIVE SCARRING. SMALL PLEURAL EFFUSIONS. PATCHY AIRSPACE DISEASE IN THE POSTERIOR LEFT LOWER LOBE COULD INDICATE PNEUMONIA. LARGE BULLA IN THE LEFT UPPER LOBE HAS DEVELOPED IRREGULAR NODULAR THICKENING OF THE WALL WHICH MAY BE DUE TO SUPERIMPOSED INFLAMMATION OR INFECTION. ATYPICAL APPEARANCE FOR MALIGNANCY BUT NOT EXCLUDED. Assessment & Plan - Diagnosis (1) Chronically on opiate therapy Is this a current diagnosis for this admission?: Yes (2) Dyspnea Qualifiers: Dyspnea type: unspecified Qualified Code(s): R06.00 - Dyspnea, unspecified Is this a current diagnosis for this admission?: Yes (3) Acute on chronic respiratory failure with hypoxia and hypercapnia Is this a current diagnosis for this admission?: Yes (5) Sepsis Qualifiers: Sepsis type: sepsis due to unspecified organism Qualified Code(s): A41.9 - Sepsis, unspecified organism Is this a current diagnosis for this admission?: Yes
[2017-04-08 19:42] LABS: ARTERIAL BLOOD BASE EXCESS 14.2 mmol/L; ARTERIAL BLOOD O2 SATURATION 86.4 % (94-98)
--- NOTE | 2017-04-08 20:08 | RADIOLOGY REPORT (SQ) ---
EXAM DESCRIPTION: CT HEAD WITHOUT COMPLETED DATE/TIME: 04/08/2017 7:54 pm REASON FOR STUDY: AMS COMPARISON: None. TECHNIQUE: Axial images acquired through the brain without intravenous contrast. Images reviewed wi th bone, brain and subdural windows. Images stored on PACS. All CT scanners at this facility use dose modulation, iterative reconstruction, and/or weight based d osing when appropriate to reduce radiation dose to as low as reasonably achievable (ALARA). [facility]: Dose Right [facility]: CareDose [facility]: Dose Right [facility]: Teradose 4D [facility]: [id number] RADIATION DOSE: Up-to-date CT equipment and radiation dose reduction techniques were employed. CTDIv ol: 49.0 mGy. DLP: 979 mGy-cm. mGy. LIMITATIONS: None. FINDINGS: VENTRICLES: Normal size and contour. CEREBRUM: No masses. No hemorrhage. No midline shift. Normal peters/white matter differentiation. N o evidence for acute infarction. CEREBELLUM: No masses. No hemorrhage. No alteration of density. No evidence for acute infarction. EXTRAAXIAL SPACES: No fluid collections. No masses. ORBITS AND GLOBE: No intra- or extraconal masses. Normal contour of globe without masses. CALVARIUM: No fracture. PARANASAL SINUSES: No fluid or mucosal thickening. SOFT TISSUES: No mass or hematoma. OTHER: No other significant finding. IMPRESSION: NORMAL BRAIN CT WITHOUT CONTRAST. TECHNICAL DOCUMENTATION: JOB ID: [id number] Quality ID # [id number]: Final reports with documentation of one or more dose reduction techniques (e.g., Au tomated exposure control, adjustment of the mA and/or kV according to patient size, use of iterative reconstruction technique) 2010 [employer]- All Rights Reserved
[2017-04-08] MEDS: MONTELUKAST SODIUM 10 MG TABLET PO SCH (21:40)
[2017-04-08] MEDS: PHARMACY COMMUNICATION ORDER MC SCH (21:51)
[2017-04-08 23:39] LABS: VENOUS BLOOD BASE EXCESS 13.9 mmol/L; VENOUS BLOOD PCO2 50.9 mmHg (35-63); VENOUS BLOOD PH 7.5 (7.30-7.42)
--- NOTE | 2017-04-09 01:23 | RADIOLOGY REPORT (SQ) ---
EXAM DESCRIPTION: U/S ABDOMEN LTD W/DOPPLER COMPLETED DATE/TIME: 04/09/2017 12:45 am REASON FOR STUDY: abn CT abd. COMPARISON: CT, 04/08/2017. TECHNIQUE: Dynamic and static grayscale images acquired of the abdomen and recorded on PACS. Additio nal selected color Doppler and spectral images recorded. LIMITATIONS: Pancreas partially obscured. FINDINGS: PANCREAS: Partially obscured. LIVER: No masses. Echotexture normal. LIVER VASCULATURE: Normal directional flow of the main portal vein and hepatic veins. GALLBLADDER: No stones. Normal wall thickness. No pericholecystic fluid. ULTRASOUND-DETECTED MITTAL'S SIGN: Negative. INTRAHEPATIC DUCTS AND COMMON DUCT: 1.5 cm diameter common duct. Intrahepatic ducts normal caliber. No filling defects. INFERIOR VENA CAVA: Normal flow. AORTA: No aneurysm. Atherosclerosis. RIGHT KIDNEY: Normal size. Normal echogenicity. 4.3 cm likely benign cyst of the upper pole not def initively characterized. No hydronephrosis. No calcifications. PERITONEAL AND RIGHT PLEURAL SPACE: No ascites or effusions. OTHER: No other significant findings. IMPRESSION: 1.5 cm nonspecific common duct dilation. No evidence of intrahepatic ductal dilation. TECHNICAL DOCUMENTATION: JOB ID: [id number] [employer]- All Rights Reserved
[2017-04-09] MEDS: LEVALBUTEROL HCL NEB 1.25 MG/3 ML AMPUL NEB SCH ×5 (03:51→20:05)
[2017-04-09] MEDS: OXYCODONE HCL SR 10 MG TABLET PO SCH ×3 (06:32→21:54)
[2017-04-09] MEDS: GABAPENTIN 300 MG CAPSULE PO SCH ×3 (06:33→21:52)
[2017-04-09] MEDS: LANSOPRAZOLE 30 MG TAB.RAP.DR PO SCH ×2 (06:33→17:32)
[2017-04-09] MEDS: OXYCODONE HCL SR 40 MG TABLET PO SCH ×3 (06:33→21:53)
[2017-04-09] MEDS: AMOXICILLIN TR/POT CLAVULANATE 500-125 MG TAB PO SCH ×3 (06:33→21:53)
[2017-04-09 06:39] LABS: ABSOLUTE EOSINOPHILS # (AUTO) 0.1 10^3/uL (0.0-0.6); ABSOLUTE LYMPHOCYTES (AUTO) 1.7 10^3/uL (0.5-4.7); ABSOLUTE MONOCYTES (AUTO) 0.6 10^3/uL (0.1-1.4); ABSOLUTE NEUT (AUTO) 9.1 10^3/uL (1.7-8.2); BASOPHILS % (AUTO) 0.2 % (0-2); EOSINOPHILS % (AUTO) 1.1 % (0-6); HEMATOCRIT 37.6 % (37.9-51.0); HEMOGLOBIN 12.1 g/dL (13.5-17.0); HGB HCT DIFFERENCE -1.3; MEAN CORPUSCULAR HEMOGLOBIN 28.1 pg (27.0-33.4); MEAN CORPUSCULAR HGB CONC 32.2 g/dL (32.0-36.0); MEAN CORPUSCULAR VOLUME 87 fl (80-97); MONOCYTES % (AUTO) 5.5 % (3-13); RED BLOOD COUNT 4.31 10^6/uL (4.35-5.55); RED CELL DISTRIBUTION WIDTH 17.1 % (11.5-14.0); SEGMENTED NEUTROPHILS % (AUTO) 78.2 % (42-78); WHITE BLOOD COUNT 11.6 10^3/uL (4.0-10.5)
[2017-04-09 07:07] LABS: ALANINE AMINOTRANSFERASE 39 U/L (21-72); ALBUMIN 2.7 g/dL (3.5-5.0); ALKALINE PHOSPHATASE 156 U/L (38-126); ANION GAP 6 (5-19); ASPARTATE AMINO TRANSFERASE 34 U/L (17-59); BILIRUBIN,DIRECT 0.4 mg/dL (0.0-0.4); BILIRUBIN,TOTAL 0.7 mg/dL (0.2-1.3); BLOOD UREA NITROGEN 10 mg/dL (7-20); CALCIUM 8.5 mg/dL (8.4-10.2); CARBON DIOXIDE 39 mmol/L (22-30); CHLORIDE 93 mmol/L (98-107); CREATININE RESULT 0.54 mg/dL (0.52-1.25); GLUCOSE 80 mg/dL (75-110); MAGNESIUM 2.1 mg/dL (1.6-2.3); POTASSIUM 3.2 mmol/L (3.6-5.0); SODIUM 137.8 mmol/L (137-145); TOTAL PROTEIN 6.1 g/dL (6.3-8.2)
[2017-04-09] MEDS ORDERED: POTASSIUM CHLORIDE 10 MEQ TABLET.SA PO ONE ×2 (07:45→10:54)
--- NOTE | 2017-04-09 09:52 | PDOC PROGRESS REPORT ---
Subjective Progress Note for:: 04/09/17 Subjective:: Patient was having abdominal pain yesterday but this is resolved. He states that his breathing is feeling much better than it did on admission. It is approaching baseline but not quite there yet. He still feels generally weak when attempting to ambulate. He denies fever, chills, chest pain, hemoptysis. Physical Exam Vital Signs: Temp Pulse Resp BP Pulse Ox 97.8 F 74 20 124/81 91 L 04/09/17 07:34 04/09/17 07:34 04/09/17 04:32 04/09/17 07:34 04/09/17 07:34 Intake & Output 04/08/17 04/09/17 04/10/17 06:59 06:59 06:59 Intake Total 1377 478 Output Total 2550 900 Balance -1173 -422 Weight 64 kg 60.2 kg GENERAL: No acute distress, appears much older than age HEENT: Conjunctiva clear, nonicteric, moist mucous membranes, no JVD, midline trachea RESPIRATORY: Decreased bilateral breath sounds, no overt wheezes or rhonchi CARDIAC: Regular rate and rhythm, no murmurs/gallops/rubs ABDOMEN: Soft, nontender, positive bowel sounds, no rebound, no guarding EXTREMETIES: No edema, cyanosis, clubbing NEUROLOGIC: Alert, oriented to person/place/time, CN's grossly intact, no focal deficits SKIN: No rash, wounds PSYCH: Normal mood, normal affect Results Laboratory Results: 04/09/17 05:56 04/09/17 05:56 04/08/17 04/08/17 04/09/17 19:31 23:30 05:56 WBC 11.6 H RBC 4.31 L Hgb 12.1 L Hct 37.6 L MCV 87 MCH 28.1 MCHC 32.2 RDW 17.1 H Plt Count 286 Seg Neutrophils % 78.2 H Lymphocytes % 15.0 Monocytes % 5.5 Eosinophils % 1.1 Basophils % 0.2 Absolute Neutrophils 9.1 H Absolute Lymphocytes 1.7 Absolute Monocytes 0.6 Absolute Eosinophils 0.1 Absolute Basophils 0.0 Carbonic Acid 1.65 H HCO3/H2CO3 Ratio 24:1 ABG pH 7.48 H ABG pCO2 54.8 H ABG pO2 48.9 L ABG HCO3 40.0 H ABG O2 Saturation 86.4 L ABG Base Excess 14.2 VBG pH 7.50 H VBG pCO2 50.9 VBG HCO3 39.0 H VBG Base Excess 13.9 FiO2 7L Sodium Potassium Chloride Carbon Dioxide Anion Gap BUN Creatinine Est GFR ( Amer) Est GFR (Non-Af Amer) Glucose Calcium Magnesium Total Bilirubin AST ALT Alkaline Phosphatase Total Protein Albumin 04/09/17 05:56 WBC RBC Hgb Hct MCV MCH MCHC RDW Plt Count Seg Neutrophils % Lymphocytes % Monocytes % Eosinophils % Basophils % Absolute Neutrophils Absolute Lymphocytes Absolute Monocytes Absolute Eosinophils Absolute Basophils Carbonic Acid HCO3/H2CO3 Ratio ABG pH ABG pCO2 ABG pO2 ABG HCO3 ABG O2 Saturation ABG Base Excess VBG pH VBG pCO2 VBG HCO3 VBG Base Excess FiO2 Sodium 137.8 Potassium 3.2 L Chloride 93 L Carbon Dioxide 39 H Anion Gap 6 BUN 10 Creatinine 0.54 Est GFR ( Amer) > 60 Est GFR (Non-Af Amer) > 60 Glucose 80 Calcium 8.5 Magnesium 2.1 Total Bilirubin 0.7 AST 34 ALT 39 Alkaline Phosphatase 156 H Total Protein 6.1 L Albumin 2.7 L 04/03/17 08:37 Blood Blood Culture - Final NO GROWTH IN 5 DAYS 04/05/17 22:05 Sputum AFB Smear Concentration - Final 04/05/17 22:05 Sputum Acid Fast Bacilli Smear - Final 04/03/17 07:07 Blood Blood Culture - Final NO GROWTH IN 5 DAYS 04/06/17 04/06/17 04/06/17 01:12 01:12 02:03 Creatine Kinase Cancelled CK-MB (CK-2) Cancelled 0.45 Troponin I Cancelled 0.034 04/06/17 02:03 Creatine Kinase < 20 L CK-MB (CK-2) Troponin I Impressions: Chest X-Ray 04/05/17 00:00 IMPRESSION: ACUTE ON CHRONIC LUNG DISEASE WITH SMALL BILATERAL PLEURAL EFFUSIONS. DIFFERENTIAL INCLUDES MULTIFOCAL PNEUMONIA OR ASYMMETRIC PULMONARY EDEMA. Abdomen/Pelvis CT 04/08/17 00:00 IMPRESSION: 1. DISTENDED GALLBLADDER. MILD DILATION OF THE BILE DUCTS. NO PANCREATIC DUCT DILATION. RECOMMEND FURTHER EVALUATION WITH RIGHT UPPER QUADRANT ULTRASOUND. 2. SMALL AMOUNT OF FREE FLUID IN THE PELVIS. ETIOLOGY AND SIGNIFICANCE NOT APPARENT. 3. CORTICAL CYST IN THE RIGHT KIDNEY. 4. NO OTHER SIGNIFICANT OR ACUTE FINDING IN THE ABDOMEN OR PELVIS ON CT SCAN WITH IV CONTRAST. Chest CT 04/08/17 00:00 IMPRESSION: SEVERE BULLOUS EMPHYSEMA WITH EXTENSIVE SCARRING. SMALL PLEURAL EFFUSIONS. PATCHY AIRSPACE DISEASE IN THE POSTERIOR LEFT LOWER LOBE COULD INDICATE PNEUMONIA. LARGE BULLA IN THE LEFT UPPER LOBE HAS DEVELOPED IRREGULAR NODULAR THICKENING OF THE WALL WHICH MAY BE DUE TO SUPERIMPOSED INFLAMMATION OR INFECTION. ATYPICAL APPEARANCE FOR MALIGNANCY BUT NOT EXCLUDED. Head CT 04/08/17 00:00 IMPRESSION: NORMAL BRAIN CT WITHOUT CONTRAST. Abdomen Ultrasound 04/09/17 00:01 IMPRESSION: 1.5 cm nonspecific common duct dilation. No evidence of intrahepatic ductal dilation. Assessment & Plan - Diagnosis (1) Sepsis Qualifiers: Sepsis type: sepsis due to unspecified organism Qualified Code(s): A41.9 - Sepsis, unspecified organism Is this a current diagnosis for this admission?: YesPlan: Secondary to pneumonia. White blood count slightly elevated. Blood pressure stable. Afebrile. (2) Pneumonia Qualifiers: Pneumonia type: due to unspecified organism Laterality: right Lung location: lower lobe of lung Qualified Code(s): J18.1 - Lobar pneumonia, unspecified organism Is this a current diagnosis for this admission?: YesPlan: Patient has cavitary pneumonia. AFB negative. Per discharge documentation patient was to follow-up with his pulmonary medicine doctor at [facility] (Dr. King Ro [phone]) for evaluation and possible bronchoscopy on 01/08/2017. I attempted to call Dr. King Ro on 2 occasions this admission but did not receive a return phone call. Patient will need to reschedule appointment after discharge. Patient is also followed by Dr. Shin of pulmonary medicine locally. Patient stable on oral Augmentin and Diflucan. Records from [facility] indicate the patient had light growth of Aspergillus in the sputum during hospitalization there recently. Further pulmonary medicine physician decision was made not to treat this at they did not feel there was a definite pulmonary infection associated with this. (3) Abdominal pain Is this a current diagnosis for this admission?: YesPlan: Resolved. CT abdomen/pelvis with no acute finding. Right upper quadrant ultrasound with mild common bile duct dilatation but no other acute finding. (4) Acute on chronic respiratory failure with hypoxia and hypercapnia Is this a current diagnosis for this admission?: YesPlan: Secondary to severe bullous emphysema. Patient is chronic oxygen dependent. He subjectively feels better with Oxymizer. We will have to see if we can obtain this as an outpatient. (5) End stage COPD Is this a current diagnosis for this admission?: YesPlan: CT scan of the chest reveals severe bullous emphysema with very little normal lung architecture. Palliative care has evaluated patient and will follow him as an outpatient. Continue nebulizer treatments. Wean off prednisone SUMMER (6) Acute renal failure Qualifiers: Acute renal failure type: with acute tubular necrosis Qualified Code (s): N17.0 - Acute kidney failure with tubular necrosis Is this a current diagnosis for this admission?: Yes (7) Anemia Qualifiers: Anemia type: other cause Other causes of anemia: chronic disease, other Qualified Code(s): D63.8 - Anemia in other chronic diseases classified elsewhere Is this a current diagnosis for this admission?: Yes (8) Hypokalemia Is this a current diagnosis for this admission?: YesPlan: Replace as needed. (9) Chronic pain Qualifiers: Chronic pain type: other chronic pain Qualified Code(s): G89.29 - Other chronic pain Is this a current diagnosis for this admission?: Yes (10) Do not resuscitate Is this a current diagnosis for this admission?: Yes - Time Time Spent with patient: 35 or more minutes
[2017-04-09] MEDS: LACTOBACILLUS ACIDOPHILUS 250 MG TAB PO SCH (11:09)
[2017-04-09] MEDS: DOCUSATE SODIUM 100 MG CAPSULE PO SCH ×2 (11:09→17:32)
[2017-04-09] MEDS: LORATADINE 10 MG TABLET PO SCH (11:09)
[2017-04-09] MEDS: ENOXAPARIN SODIUM INJ 40 MG/0.4 ML DISP.SYRIN SUBCUT SCH (11:09)
[2017-04-09] MEDS: ROFLUMILAST 500 MCG TABLET PO SCH (11:09)
[2017-04-09] MEDS: IRON POLYSACCHARIDES COMPLEX 150 MG CAPSULE PO SCH (11:10)
[2017-04-09] MEDS: ASPIRIN 81 MG TABLET, CHEWABLE PO SCH (11:10)
[2017-04-09] MEDS: GUAIFENESIN 600 MG TABLET.SA PO SCH ×2 (11:10→21:52)
[2017-04-09] MEDS: FAMOTIDINE 20 MG TABLET PO SCH ×2 (11:10→21:54)
[2017-04-09] MEDS: FLUCONAZOLE 100 MG TABLET PO SCH (11:10)
[2017-04-09] MEDS: OXYCODONE HCL IR 5 MG TABLET PO PRN ×3 (11:11→19:22)
[2017-04-09] MEDS: PREDNISONE 20 MG TABLET PO SCH (11:11)
[2017-04-09] MEDS: FLUTICASONE/SALMETEROL DISKUS 500-50 MCG/DOSE IH SCH ×2 (11:13→21:52)
[2017-04-09] MEDS: FLUTICASONE NASAL SPRAY 50 MCG/SPRY 120 SPRAY/16 GM NASL SCH ×2 (11:13→21:51)
[2017-04-09] MEDS: LIDOCAINE 5% (700 MG) TRANSDERMAL ADH..PATCH TP SCH (11:14)
--- NOTE | 2017-04-09 14:02 | Pulmonary Function Test ---
Pulmonary Function Test Date of Procedure:: 04/08/17 INDICATION:: Dyspnea Referring Provider: Dr. Magdiel Lynch - Report Spirometry: FVC 2.81 L 66% postbronchodilator therapy 2.66 L 62% FEV1 0.82 L 25% postbronchodilator therapy 0.90 L 27% FEV1/FVC % 29 postbronchodilator therapy 34 predicted 77 FEF 25-75% 0.46 16% postbronchodilator therapy 0.48 16% Impression: Severe obstructive ventilatory defect with insignificant response to bronchodilator therapy. This does not preclude a clinical trial of bronchodilator therapy.
--- NOTE | 2017-04-09 15:06 | PDOC PROGRESS REPORT ---
Subjective Progress Note for:: 04/09/17 Subjective:: The pain resolved as quickly as it is started Physical Exam Vital Signs: Temp Pulse Resp BP Pulse Ox 97.8 F 90 18 121/80 95 04/09/17 11:14 04/09/17 12:00 04/09/17 12:00 04/09/17 11:14 04/09/17 12:00 Intake & Output 04/08/17 04/09/17 04/10/17 06:59 06:59 06:59 Intake Total 1377 478 0 Output Total 2550 900 Balance -1173 -422 0 Weight 64 kg 60.2 kg General appearance: PRESENT: no acute distress, cooperative, disheveled, thin, well-developed Head exam: PRESENT: atraumatic, normocephalic Eye exam: PRESENT: conjunctiva pale, EOMI Mouth exam: PRESENT: dry mucosa, neck supple, tongue midline Teeth exam: PRESENT: poor dentation Neck exam: ABSENT: carotid bruit, JVD, lymphadenopathy, thyromegaly Respiratory exam: PRESENT: decreased breath sounds, prolonged expiratory phas, rales, rhonchi, symmetrical, unlabored Cardiovascular exam: PRESENT: RRR, +S1, +S2 Pulses: PRESENT: normal radial pulses GI/Abdominal exam: PRESENT: normal bowel sounds, soft. ABSENT: distended, guarding, mass, organolmegaly, rebound, tenderness Rectal exam: PRESENT: deferred Musculoskeletal exam: PRESENT: normal inspection Neurological exam: PRESENT: alert, awake Psychiatric exam: PRESENT: normal mood Skin exam: PRESENT: dry, warm Results Laboratory Results: 04/09/17 05:56 04/09/17 05:56 04/08/17 04/08/17 04/09/17 19:31 23:30 05:56 WBC 11.6 H RBC 4.31 L Hgb 12.1 L Hct 37.6 L MCV 87 MCH 28.1 MCHC 32.2 RDW 17.1 H Plt Count 286 Seg Neutrophils % 78.2 H Lymphocytes % 15.0 Monocytes % 5.5 Eosinophils % 1.1 Basophils % 0.2 Absolute Neutrophils 9.1 H Absolute Lymphocytes 1.7 Absolute Monocytes 0.6 Absolute Eosinophils 0.1 Absolute Basophils 0.0 Carbonic Acid 1.65 H HCO3/H2CO3 Ratio 24:1 ABG pH 7.48 H ABG pCO2 54.8 H ABG pO2 48.9 L ABG HCO3 40.0 H ABG O2 Saturation 86.4 L ABG Base Excess 14.2 VBG pH 7.50 H VBG pCO2 50.9 VBG HCO3 39.0 H VBG Base Excess 13.9 FiO2 7L Sodium Potassium Chloride Carbon Dioxide Anion Gap BUN Creatinine Est GFR ( Amer) Est GFR (Non-Af Amer) Glucose Calcium Magnesium Total Bilirubin AST ALT Alkaline Phosphatase Total Protein Albumin 04/09/17 05:56 WBC RBC Hgb Hct MCV MCH MCHC RDW Plt Count Seg Neutrophils % Lymphocytes % Monocytes % Eosinophils % Basophils % Absolute Neutrophils Absolute Lymphocytes Absolute Monocytes Absolute Eosinophils Absolute Basophils Carbonic Acid HCO3/H2CO3 Ratio ABG pH ABG pCO2 ABG pO2 ABG HCO3 ABG O2 Saturation ABG Base Excess VBG pH VBG pCO2 VBG HCO3 VBG Base Excess FiO2 Sodium 137.8 Potassium 3.2 L Chloride 93 L Carbon Dioxide 39 H Anion Gap 6 BUN 10 Creatinine 0.54 Est GFR ( Amer) > 60 Est GFR (Non-Af Amer) > 60 Glucose 80 Calcium 8.5 Magnesium 2.1 Total Bilirubin 0.7 AST 34 ALT 39 Alkaline Phosphatase 156 H Total Protein 6.1 L Albumin 2.7 L 04/05/17 22:05 Sputum Fungal Smear - Final 04/05/17 22:05 Sputum Fungal Smear - Final 04/05/17 22:05 Sputum Fungal Smear - Final 04/06/17 04/06/17 04/06/17 01:12 01:12 02:03 Creatine Kinase Cancelled CK-MB (CK-2) Cancelled 0.45 Troponin I Cancelled 0.034 04/06/17 02:03 Creatine Kinase < 20 L CK-MB (CK-2) Troponin I Impressions: Chest X-Ray 04/05/17 00:00 IMPRESSION: ACUTE ON CHRONIC LUNG DISEASE WITH SMALL BILATERAL PLEURAL EFFUSIONS. DIFFERENTIAL INCLUDES MULTIFOCAL PNEUMONIA OR ASYMMETRIC PULMONARY EDEMA. Abdomen/Pelvis CT 04/08/17 00:00 IMPRESSION: 1. DISTENDED GALLBLADDER. MILD DILATION OF THE BILE DUCTS. NO PANCREATIC DUCT DILATION. RECOMMEND FURTHER EVALUATION WITH RIGHT UPPER QUADRANT ULTRASOUND. 2. SMALL AMOUNT OF FREE FLUID IN THE PELVIS. ETIOLOGY AND SIGNIFICANCE NOT APPARENT. 3. CORTICAL CYST IN THE RIGHT KIDNEY. 4. NO OTHER SIGNIFICANT OR ACUTE FINDING IN THE ABDOMEN OR PELVIS ON CT SCAN WITH IV CONTRAST. Chest CT 04/08/17 00:00 IMPRESSION: SEVERE BULLOUS EMPHYSEMA WITH EXTENSIVE SCARRING. SMALL PLEURAL EFFUSIONS. PATCHY AIRSPACE DISEASE IN THE POSTERIOR LEFT LOWER LOBE COULD INDICATE PNEUMONIA. LARGE BULLA IN THE LEFT UPPER LOBE HAS DEVELOPED IRREGULAR NODULAR THICKENING OF THE WALL WHICH MAY BE DUE TO SUPERIMPOSED INFLAMMATION OR INFECTION. ATYPICAL APPEARANCE FOR MALIGNANCY BUT NOT EXCLUDED. Head CT 04/08/17 00:00 IMPRESSION: NORMAL BRAIN CT WITHOUT CONTRAST. Abdomen Ultrasound 04/09/17 00:01 IMPRESSION: 1.5 cm nonspecific common duct dilation. No evidence of intrahepatic ductal dilation. Assessment & Plan - Diagnosis (1) Chronically on opiate therapy Is this a current diagnosis for this admission?: Yes (2) Dyspnea Qualifiers: Dyspnea type: unspecified Qualified Code(s): R06.00 - Dyspnea, unspecified Is this a current diagnosis for this admission?: YesPlan: Stable at this time (3) Acute on chronic respiratory failure with hypoxia and hypercapnia Is this a current diagnosis for this admission?: YesPlan: Acute component was appears to be stable now (5) Sepsis Qualifiers: Sepsis type: sepsis due to unspecified organism Qualified Code(s): A41.9 - Sepsis, unspecified organism Is this a current diagnosis for this admission?: Yes
--- NOTE | 2017-04-09 17:15 | EKG REPORT ---
SEVERITY:- NORMAL ECG - SINUS RHYTHM : Confirmed by: Clarice Ahn MD 09-Apr-2017 17:15:17
[2017-04-09] MEDS: MONTELUKAST SODIUM 10 MG TABLET PO SCH (21:52)
[2017-04-09] MEDS: PHARMACY COMMUNICATION ORDER MC SCH (22:00)
--- NOTE | 2017-04-09 23:43 | Progress Note ---
Provider Note Provider Note: Palliative care follow up note: Visit made 2:340-2:55 S: Mr. Shaffer continues to improve. He said he is breathing with less effort and less cough. He had reported abd. pain yesterday. CT abdomen and CT lungs completed without evidence of new problems. Patient is tried and weak, but is not having the abdominal pain today. Patient has been on PO antibiotics now and is tolerating today. He is hoping to go home soon and wants to follow up as outpatient with Dr. Juarez. He reports being weak but feels he is strong enough to go home and will improve from walking around his home etc. O: Awake,after nap, alert/oriented. Respirations unlabored and without noted cough. No chest pain. Abd pain resolved. Color pink but pale. Weak, but ambulating independently. No edema lower extremities. A/P: COPD: Mr. Shaffer agrees to home Palliative care visits and I will ask liason to contact Dr. Juarez to obtain order for referral for this. Debiltiy: He reports having all needed DME in his home as well as oxygen and C-PAP. It is not clear if he will have home health to follow but I would recommend that home health follow for PT and evaluation for respiratory monitoring. Pain; Patient reports relief pain today. Appetite fair. No reported diarrhea or abdominal cramping today. Appreciate opportunity to meet this patient and will look forward to following at home.
[2017-04-10] MEDS: LEVALBUTEROL HCL NEB 1.25 MG/3 ML AMPUL NEB SCH ×6 (00:11→20:49)
[2017-04-10] MEDS: OXYCODONE HCL IR 5 MG TABLET PO PRN ×4 (04:15→17:03)
[2017-04-10 06:24] LABS: HEMATOCRIT 29.8 % (37.9-51.0); HGB HCT DIFFERENCE 0.2; MEAN CORPUSCULAR HEMOGLOBIN 29.3 pg (27.0-33.4); MEAN CORPUSCULAR HGB CONC 33.4 g/dL (32.0-36.0); MEAN CORPUSCULAR VOLUME 88 fl (80-97); RED BLOOD COUNT 3.41 10^6/uL (4.35-5.55); WHITE BLOOD COUNT 11.8 10^3/uL (4.0-10.5)
[2017-04-10 06:33] LABS: ANION GAP 6 (5-19); BLOOD UREA NITROGEN 14 mg/dL (7-20); CALCIUM 7.9 mg/dL (8.4-10.2); CARBON DIOXIDE 36 mmol/L (22-30); CHLORIDE 95 mmol/L (98-107); CREATININE RESULT 0.58 mg/dL (0.52-1.25); GLUCOSE 89 mg/dL (75-110); POTASSIUM 3.3 mmol/L (3.6-5.0); SODIUM 136.8 mmol/L (137-145)
[2017-04-10] MEDS: OXYCODONE HCL SR 10 MG TABLET PO SCH ×3 (06:37→21:20)
[2017-04-10] MEDS: OXYCODONE HCL SR 40 MG TABLET PO SCH ×3 (06:37→21:19)
[2017-04-10] MEDS: AMOXICILLIN TR/POT CLAVULANATE 500-125 MG TAB PO SCH ×3 (06:37→21:19)
[2017-04-10] MEDS: LANSOPRAZOLE 30 MG TAB.RAP.DR PO SCH ×2 (06:38→17:02)
[2017-04-10] MEDS: GABAPENTIN 300 MG CAPSULE PO SCH ×3 (06:38→21:19)
[2017-04-10] MEDS ORDERED: POTASSIUM CHLORIDE 10 MEQ TABLET.SA PO ONE (07:19)
[2017-04-10] MEDS: ASPIRIN 81 MG TABLET, CHEWABLE PO SCH (10:31)
[2017-04-10] MEDS: LACTOBACILLUS ACIDOPHILUS 250 MG TAB PO SCH (10:32)
[2017-04-10] MEDS: FLUCONAZOLE 100 MG TABLET PO SCH (10:32)
[2017-04-10] MEDS: LORATADINE 10 MG TABLET PO SCH (10:33)
[2017-04-10] MEDS: GUAIFENESIN 600 MG TABLET.SA PO SCH ×2 (10:33→21:18)
[2017-04-10] MEDS: FAMOTIDINE 20 MG TABLET PO SCH ×2 (10:34→21:19)
[2017-04-10] MEDS: ROFLUMILAST 500 MCG TABLET PO SCH (10:34)
[2017-04-10] MEDS: DOCUSATE SODIUM 100 MG CAPSULE PO SCH ×2 (10:34→17:03)
[2017-04-10] MEDS: IRON POLYSACCHARIDES COMPLEX 150 MG CAPSULE PO SCH (10:35)
[2017-04-10] MEDS: PREDNISONE 20 MG TABLET PO SCH (10:35)
[2017-04-10] MEDS: ENOXAPARIN SODIUM INJ 40 MG/0.4 ML DISP.SYRIN SUBCUT SCH (10:36)
[2017-04-10] MEDS: FLUTICASONE/SALMETEROL DISKUS 500-50 MCG/DOSE IH SCH ×2 (10:38→21:21)
[2017-04-10] MEDS: FLUTICASONE NASAL SPRAY 50 MCG/SPRY 120 SPRAY/16 GM NASL SCH ×2 (10:41→21:21)
[2017-04-10] MEDS: LIDOCAINE 5% (700 MG) TRANSDERMAL ADH..PATCH TP SCH (10:41)
--- NOTE | 2017-04-10 11:59 | PDOC PROGRESS REPORT ---
Subjective Progress Note for:: 04/10/17 Subjective:: Patient states that his breathing is feeling much better than it did on admission. He still feels generally weak when attempting to ambulate. He denies fever, chills, chest pain, hemoptysis. Physical Exam Vital Signs: Temp Pulse Resp BP Pulse Ox 97.7 F 97 16 116/76 97 04/10/17 07:37 04/10/17 08:57 04/10/17 08:57 04/10/17 07:37 04/10/17 08:57 Intake & Output 04/09/17 04/10/17 04/11/17 06:59 06:59 06:59 Intake Total 478 1180 Output Total 900 500 Balance -422 680 Weight 60.2 kg 60.1 kg GENERAL: No acute distress, appears much older than age HEENT: Conjunctiva clear, nonicteric, moist mucous membranes, no JVD, midline trachea RESPIRATORY: Decreased bilateral breath sounds, no overt wheezes or rhonchi CARDIAC: Regular rate and rhythm, no murmurs/gallops/rubs ABDOMEN: Soft, nontender, positive bowel sounds, no rebound, no guarding EXTREMETIES: No edema, cyanosis, clubbing NEUROLOGIC: Alert, oriented to person/place/time, CN's grossly intact, no focal deficits SKIN: No rash, wounds PSYCH: Normal mood, normal affect Results Laboratory Results: 04/10/17 05:19 04/10/17 05:19 04/10/17 04/10/17 05:19 05:19 WBC 11.8 H RBC 3.41 L Hgb 10.0 L D Hct 29.8 L MCV 88 MCH 29.3 MCHC 33.4 RDW 17.0 H Plt Count 288 Sodium 136.8 L Potassium 3.3 L Chloride 95 L Carbon Dioxide 36 H Anion Gap 6 BUN 14 Creatinine 0.58 Est GFR ( Amer) > 60 Est GFR (Non-Af Amer) > 60 Glucose 89 Calcium 7.9 L 04/05/17 22:05 Sputum Fungal Smear - Final 04/05/17 22:05 Sputum Fungal Smear - Final 04/05/17 22:05 Sputum Fungal Smear - Final 04/06/17 04/06/17 04/06/17 01:12 01:12 02:03 Creatine Kinase Cancelled CK-MB (CK-2) Cancelled 0.45 Troponin I Cancelled 0.034 04/06/17 02:03 Creatine Kinase < 20 L CK-MB (CK-2) Troponin I Impressions: Chest X-Ray 04/05/17 00:00 IMPRESSION: ACUTE ON CHRONIC LUNG DISEASE WITH SMALL BILATERAL PLEURAL EFFUSIONS. DIFFERENTIAL INCLUDES MULTIFOCAL PNEUMONIA OR ASYMMETRIC PULMONARY EDEMA. Abdomen/Pelvis CT 04/08/17 00:00 IMPRESSION: 1. DISTENDED GALLBLADDER. MILD DILATION OF THE BILE DUCTS. NO PANCREATIC DUCT DILATION. RECOMMEND FURTHER EVALUATION WITH RIGHT UPPER QUADRANT ULTRASOUND. 2. SMALL AMOUNT OF FREE FLUID IN THE PELVIS. ETIOLOGY AND SIGNIFICANCE NOT APPARENT. 3. CORTICAL CYST IN THE RIGHT KIDNEY. 4. NO OTHER SIGNIFICANT OR ACUTE FINDING IN THE ABDOMEN OR PELVIS ON CT SCAN WITH IV CONTRAST. Chest CT 04/08/17 00:00 IMPRESSION: SEVERE BULLOUS EMPHYSEMA WITH EXTENSIVE SCARRING. SMALL PLEURAL EFFUSIONS. PATCHY AIRSPACE DISEASE IN THE POSTERIOR LEFT LOWER LOBE COULD INDICATE PNEUMONIA. LARGE BULLA IN THE LEFT UPPER LOBE HAS DEVELOPED IRREGULAR NODULAR THICKENING OF THE WALL WHICH MAY BE DUE TO SUPERIMPOSED INFLAMMATION OR INFECTION. ATYPICAL APPEARANCE FOR MALIGNANCY BUT NOT EXCLUDED. Head CT 04/08/17 00:00 IMPRESSION: NORMAL BRAIN CT WITHOUT CONTRAST. Abdomen Ultrasound 04/09/17 00:01 IMPRESSION: 1.5 cm nonspecific common duct dilation. No evidence of intrahepatic ductal dilation. Assessment & Plan - Diagnosis (1) Acute on chronic respiratory failure with hypoxia and hypercapnia Is this a current diagnosis for this admission?: YesPlan: Secondary to severe bullous emphysema. Patient is chronic oxygen dependent. He subjectively feels better with Oxymizer. We will have to see if we can obtain this as an outpatient. We will also arrange home BiPAP upon discharge. Patient has been seen by palliative care consult. (2) Sepsis Qualifiers: Sepsis type: sepsis due to unspecified organism Qualified Code(s): A41.9 - Sepsis, unspecified organism Is this a current diagnosis for this admission?: YesPlan: Secondary to pneumonia. Blood pressure stable. Afebrile. (3) Pneumonia Qualifiers: Pneumonia type: due to unspecified organism Laterality: right Lung location: lower lobe of lung Qualified Code(s): J18.1 - Lobar pneumonia, unspecified organism Is this a current diagnosis for this admission?: YesPlan: Patient has cavitary pneumonia. AFB negative. Per discharge documentation patient was to follow-up with his pulmonary medicine doctor at [facility] (Dr. King Ro [phone]) for evaluation and possible bronchoscopy on 01/08/2017. I attempted to call Dr. King Ro on 2 occasions this admission but did not receive a return phone call. Patient will need to reschedule appointment after discharge. Patient is also followed by Dr. Shin of pulmonary medicine locally. Patient stable on oral Augmentin and Diflucan. [facility] indicate the patient had light growth of Aspergillus in the sputum during hospitalization there recently. Further pulmonary medicine physician decision was made not to treat this at they did not feel there was a definite pulmonary infection associated with this. I attempted to discharge patient home today but did not want him discharge stating she had to do laundry today. We agreed that he would discharge home tomorrow. (4) Abdominal pain Is this a current diagnosis for this admission?: Yes (5) End stage COPD Is this a current diagnosis for this admission?: YesPlan: CT scan of the chest reveals severe bullous emphysema with very little normal lung architecture. Palliative care has evaluated patient and will follow him as an outpatient. Continue nebulizer treatments. Wean off prednisone SUMMER (6) Acute renal failure Qualifiers: Acute renal failure type: with acute tubular necrosis Qualified Code (s): N17.0 - Acute kidney failure with tubular necrosis Is this a current diagnosis for this admission?: Yes (7) Anemia Qualifiers: Anemia type: other cause Other causes of anemia: chronic disease, other Qualified Code(s): D63.8 - Anemia in other chronic diseases classified elsewhere Is this a current diagnosis for this admission?: Yes (8) Hypokalemia Is this a current diagnosis for this admission?: YesPlan: Replace as needed. (9) Chronic pain Qualifiers: Chronic pain type: other chronic pain Qualified Code(s): G89.29 - Other chronic pain Is this a current diagnosis for this admission?: Yes (10) Do not resuscitate Is this a current diagnosis for this admission?: Yes - Time Time Spent with patient: 25-34 minutes Anticipated discharge: Home with Homehealth Within: within 24 hours
[2017-04-10] MEDS: MONTELUKAST SODIUM 10 MG TABLET PO SCH (21:19)
[2017-04-10] MEDS: PHARMACY COMMUNICATION ORDER MC SCH (21:22)
[2017-04-11] MEDS: LEVALBUTEROL HCL NEB 1.25 MG/3 ML AMPUL NEB SCH ×4 (00:26→12:22)
[2017-04-11] MEDS: AMOXICILLIN TR/POT CLAVULANATE 500-125 MG TAB PO SCH ×2 (06:08→14:33)
[2017-04-11] MEDS: GABAPENTIN 300 MG CAPSULE PO SCH ×2 (06:08→14:33)
[2017-04-11] MEDS: OXYCODONE HCL SR 10 MG TABLET PO SCH ×2 (06:09→14:34)
[2017-04-11] MEDS: LANSOPRAZOLE 30 MG TAB.RAP.DR PO SCH (06:09)
[2017-04-11] MEDS: OXYCODONE HCL SR 40 MG TABLET PO SCH ×2 (06:09→14:33)
[2017-04-11] MEDS: OXYCODONE HCL IR 5 MG TABLET PO PRN ×3 (07:29→14:52)
--- NOTE | 2017-04-11 09:21 | PDOC DISCHARGE SUMMARY ---
General - Admit/Disc Date/PCP Admission Date/Primary Care Provider: 04/03/17 04:43 LAKSHMI GARCIA MD Discharge Date: 04/11/17 - Discharge Diagnosis (1) Acute on chronic respiratory failure with hypoxia and hypercapnia Is this a current diagnosis for this admission?: Yes (2) Sepsis Is this a current diagnosis for this admission?: Yes (3) Pneumonia Is this a current diagnosis for this admission?: Yes (4) Abdominal pain Is this a current diagnosis for this admission?: Yes (5) End stage COPD Is this a current diagnosis for this admission?: Yes (6) Acute renal failure Is this a current diagnosis for this admission?: Yes (7) Anemia Is this a current diagnosis for this admission?: Yes (8) Hypokalemia Is this a current diagnosis for this admission?: Yes (9) Chronic pain Is this a current diagnosis for this admission?: Yes (10) Do not resuscitate Is this a current diagnosis for this admission?: Yes - Additional Information Resuscitation Status: Do Not Resuscitate Discharge Diet: Regular Discharge Activity: Activity As Tolerated Home Medications: Albuterol Sulfate [Ventolin Hfa] 2 puff IH Q6HP PRN 04/03/17 Aspirin [Aspirin 81 mg Chewable Tablet] 81 mg PO DAILY 04/03/17 Calcium Carbonate [Calcium] 600 mg PO DAILY 04/03/17 Cyclobenzaprine HCl [Flexeril 10 mg Tablet] 10 mg PO TIDP PRN 04/03/17 Ferrous Sulfate [Feosol 325 mg Tablet] 325 mg PO BIDBS 04/03/17 Fluticasone/Salmeterol [Advair 500-50 Diskus 28 Dose] 1 inh IH Q12 04/03/17 Gabapentin [Neurontin] 600 mg PO Q8 04/03/17 Guaifenesin [Mucinex Sr 600 mg Tablet.sa] 1,200 mg PO Q12HP PRN 04/03/17 Ibuprofen [Motrin 800 mg Tablet] 800 mg PO Q8HP PRN 04/03/17 Lactobacillus Acidophilus [Acidophilus] 1 tab PO DAILY 04/03/17 Loratadine [Claritin 10 mg Tablet] 10 mg PO DAILY 04/03/17 Montelukast Sodium [Singulair 10 mg Tablet] 10 mg PO QHS 04/03/17 Multivitamin [Tab-A-Phuong (Multiple Vitamin) Tablet] 1 tab PO DAILY 04/03/17 Oxycodone HCl [Oxy-Ir 5 mg Tablet] 20 mg PO 5XDP PRN 04/03/17 Oxycodone HCl [Oxycodone HCl ER] 60 mg PO Q6 04/03/17 Promethazine HCl [Phenergan 25 mg Tablet] 25 mg PO Q6HP PRN 04/03/17 Tiotropium [place] [Spiriva Respimat] 2 puff IH DAILY 04/03/17 Amox Tr/Potassium Clavulanate [Augmentin "500" Tablet] 1 tab PO Q8 #63 tablet 04/11/17 Docusate Sodium [Colace 100 mg Capsule] 100 mg PO BID #60 capsule 04/11/17 Fluconazole [Diflucan 100 mg Tablet] 100 mg PO DAILY #21 tablet 04/11/17 Prednisone [Deltasone 20 mg Tablet] 20 mg PO DAILY #4 tablet 04/11/17 History of Present Illness Patient complains of: Shortness of breath History of Present Illness: CHERIE SIDDIQUI is a 51 year old male with a past medical history of oxygen dependent COPD, severe emphysema with scarring, recurrent pneumonia, severe iron deficiency anemia and Hillar adenopathy. Patient was released 7 days ago from [facility] following a 14 day hospitalization for respiratory failure and pneumonia. He was not discharged with antibiotics or steroids and developed worsening shortness of breath subjective fever of the last 48 hours prompting her to seek evaluation emergency room. Where he is found to have severe sepsis with hypotension, tachycardia, hypoxia, pneumonia and leukocytosis. He started on BiPAP, Zosyn and vancomycin and referred to the hospitalist for admission. Patient is toxic and severely ill unable to cooperate in History. Records from [facility] are requested and pending. Hospital Course Hospital Course: Patient presented with shortness of breath and was found to have persistent left lung field pneumonia. He was recently discharged from [facility] for cavitary pneumonia of the left lung. He has very end-stage bullous emphysema and is followed by pulmonary medicine specialist by the name of Dr. Ro at [facility]. He has also been followed by Dr. Walls of pulmonary medicine in [facility] but is requesting to be transitioned to Dr. Shin since she has had difficulty obtaining/maintaining appointments at Dr. Walls's office. Patient was initially treated with IV antibiotics for pneumonia and sepsis. Once he was clinically improved he was transitioned to oral Augmentin. I think given the cavitary nature of his pneumonia we should treat him with 21 days. I am also treating him with 21 days of Diflucan for Yolanda and sputum culture in this hospitalization and light growth of Aspergillus on previous hospitalization [facility]. Pulmonary medicine and [facility] recommended not treating the light growth of Aspergillus as stated not think it represented a true infection. He will need to follow-up with his lung specialist at [facility] for consideration of bronchoscopy to exclude malignancy. With regard to patient's chronic respiratory failure he already has home oxygen and home BiPAP in place. We will have him follow-up with Dr. Shin after discharge. With regard to end-stage bullous emphysema I have had a candid discussion with patient and his . His expressed concerns about him being rehospitalized. I advised her that he would likely be rehospitalized frequently given the severity of his lung disease. I advised patient and his that his CT scan showed severe bullous emphysema with almost no normal architecture. Patient and his both understand the severity of his illness now. Physical Exam Vital Signs: Temp Pulse Resp BP Pulse Ox 97.8 F 92 22 H 105/68 100 04/11/17 07:19 04/11/17 07:19 04/11/17 07:19 04/11/17 07:19 04/11/17 07:19 Intake & Output 04/10/17 04/11/17 04/12/17 06:59 06:59 06:59 Intake Total 1180 1044 Output Total 500 0 Balance 680 1044 Weight 60.1 kg 55 kg GENERAL: No acute distress, appears much older than age HEENT: Conjunctiva clear, nonicteric, moist mucous membranes, no JVD, midline trachea RESPIRATORY: Decreased bilateral breath sounds, no overt wheezes or rhonchi CARDIAC: Regular rate and rhythm, no murmurs/gallops/rubs ABDOMEN: Soft, nontender, positive bowel sounds, no rebound, no guarding EXTREMETIES: No edema, cyanosis, clubbing NEUROLOGIC: Alert, oriented to person/place/time, CN's grossly intact, no focal deficits SKIN: No rash, wounds PSYCH: Normal mood, normal affect Results Laboratory Results: 04/10/17 05:19 04/10/17 05:19 04/04/17 13:10 Sputum Fungal Smear - Final 04/04/17 13:10 Sputum Fungal Smear - Final 04/04/17 13:10 Sputum Fungal Smear - Final 04/04/17 13:10 Sputum Fungal Culture - Final 04/06/17 04/06/17 04/06/17 01:12 01:12 02:03 Creatine Kinase Cancelled CK-MB (CK-2) Cancelled 0.45 Troponin I Cancelled 0.034 04/06/17 02:03 Creatine Kinase < 20 L CK-MB (CK-2) Troponin I Impressions: Chest X-Ray 04/05/17 00:00 IMPRESSION: ACUTE ON CHRONIC LUNG DISEASE WITH SMALL BILATERAL PLEURAL EFFUSIONS. DIFFERENTIAL INCLUDES MULTIFOCAL PNEUMONIA OR ASYMMETRIC PULMONARY EDEMA. Abdomen/Pelvis CT 04/08/17 00:00 IMPRESSION: 1. DISTENDED GALLBLADDER. MILD DILATION OF THE BILE DUCTS. NO PANCREATIC DUCT DILATION. RECOMMEND FURTHER EVALUATION WITH RIGHT UPPER QUADRANT ULTRASOUND. 2. SMALL AMOUNT OF FREE FLUID IN THE PELVIS. ETIOLOGY AND SIGNIFICANCE NOT APPARENT. 3. CORTICAL CYST IN THE RIGHT KIDNEY. 4. NO OTHER SIGNIFICANT OR ACUTE FINDING IN THE ABDOMEN OR PELVIS ON CT SCAN WITH IV CONTRAST. Chest CT 04/08/17 00:00 IMPRESSION: SEVERE BULLOUS EMPHYSEMA WITH EXTENSIVE SCARRING. SMALL PLEURAL EFFUSIONS. PATCHY AIRSPACE DISEASE IN THE POSTERIOR LEFT LOWER LOBE COULD INDICATE PNEUMONIA. LARGE BULLA IN THE LEFT UPPER LOBE HAS DEVELOPED IRREGULAR NODULAR THICKENING OF THE WALL WHICH MAY BE DUE TO SUPERIMPOSED INFLAMMATION OR INFECTION. ATYPICAL APPEARANCE FOR MALIGNANCY BUT NOT EXCLUDED. Head CT 04/08/17 00:00 IMPRESSION: NORMAL BRAIN CT WITHOUT CONTRAST. Abdomen Ultrasound 04/09/17 00:01 IMPRESSION: 1.5 cm nonspecific common duct dilation. No evidence of intrahepatic ductal dilation. Qualifiers PATEINT BEING DISCHARGED WITH ANY OF THE FOLLOWING DIAGNOSIS?: No Plan Time Spent: Less than 30 Minutes
--- NOTE | 2017-04-11 09:53 | PDOC PROGRESS REPORT ---
Subjective Progress Note for:: 04/10/17 Subjective:: The pain resolved as quickly as it is started Physical Exam Vital Signs: Temp Pulse Resp BP Pulse Ox 97.7 F 100 20 116/76 91 L 04/10/17 07:37 04/10/17 07:37 04/10/17 07:37 04/10/17 07:37 04/10/17 07:37 Intake & Output 04/09/17 04/10/17 04/11/17 06:59 06:59 06:59 Intake Total 478 1180 Output Total 900 500 Balance -422 680 Weight 60.2 kg 60.1 kg General appearance: PRESENT: no acute distress, cooperative, disheveled, thin, well-developed Head exam: PRESENT: atraumatic, normocephalic Eye exam: PRESENT: conjunctiva pale, EOMI Mouth exam: PRESENT: dry mucosa, neck supple Neck exam: ABSENT: carotid bruit, JVD, lymphadenopathy, thyromegaly Respiratory exam: PRESENT: decreased breath sounds, prolonged expiratory phas, rhonchi, unlabored Cardiovascular exam: PRESENT: RRR, +S1, +S2 Pulses: PRESENT: normal radial pulses GI/Abdominal exam: PRESENT: normal bowel sounds, soft. ABSENT: distended, guarding, mass, organolmegaly, rebound, tenderness Rectal exam: PRESENT: deferred Musculoskeletal exam: PRESENT: normal inspection Neurological exam: PRESENT: alert, awake Psychiatric exam: PRESENT: normal mood Skin exam: PRESENT: dry, warm Results Laboratory Results: 04/10/17 05:19 04/10/17 05:19 04/10/17 04/10/17 05:19 05:19 WBC 11.8 H RBC 3.41 L Hgb 10.0 L D Hct 29.8 L MCV 88 MCH 29.3 MCHC 33.4 RDW 17.0 H Plt Count 288 Sodium 136.8 L Potassium 3.3 L Chloride 95 L Carbon Dioxide 36 H Anion Gap 6 BUN 14 Creatinine 0.58 Est GFR ( Amer) > 60 Est GFR (Non-Af Amer) > 60 Glucose 89 Calcium 7.9 L 04/05/17 22:05 Sputum Fungal Smear - Final 04/05/17 22:05 Sputum Fungal Smear - Final 04/05/17 22:05 Sputum Fungal Smear - Final 04/06/17 04/06/17 04/06/17 01:12 01:12 02:03 Creatine Kinase Cancelled CK-MB (CK-2) Cancelled 0.45 Troponin I Cancelled 0.034 04/06/17 02:03 Creatine Kinase < 20 L CK-MB (CK-2) Troponin I Impressions: Chest X-Ray 04/05/17 00:00 IMPRESSION: ACUTE ON CHRONIC LUNG DISEASE WITH SMALL BILATERAL PLEURAL EFFUSIONS. DIFFERENTIAL INCLUDES MULTIFOCAL PNEUMONIA OR ASYMMETRIC PULMONARY EDEMA. Abdomen/Pelvis CT 04/08/17 00:00 IMPRESSION: 1. DISTENDED GALLBLADDER. MILD DILATION OF THE BILE DUCTS. NO PANCREATIC DUCT DILATION. RECOMMEND FURTHER EVALUATION WITH RIGHT UPPER QUADRANT ULTRASOUND. 2. SMALL AMOUNT OF FREE FLUID IN THE PELVIS. ETIOLOGY AND SIGNIFICANCE NOT APPARENT. 3. CORTICAL CYST IN THE RIGHT KIDNEY. 4. NO OTHER SIGNIFICANT OR ACUTE FINDING IN THE ABDOMEN OR PELVIS ON CT SCAN WITH IV CONTRAST. Chest CT 04/08/17 00:00 IMPRESSION: SEVERE BULLOUS EMPHYSEMA WITH EXTENSIVE SCARRING. SMALL PLEURAL EFFUSIONS. PATCHY AIRSPACE DISEASE IN THE POSTERIOR LEFT LOWER LOBE COULD INDICATE PNEUMONIA. LARGE BULLA IN THE LEFT UPPER LOBE HAS DEVELOPED IRREGULAR NODULAR THICKENING OF THE WALL WHICH MAY BE DUE TO SUPERIMPOSED INFLAMMATION OR INFECTION. ATYPICAL APPEARANCE FOR MALIGNANCY BUT NOT EXCLUDED. Head CT 04/08/17 00:00 IMPRESSION: NORMAL BRAIN CT WITHOUT CONTRAST. Abdomen Ultrasound 04/09/17 00:01 IMPRESSION: 1.5 cm nonspecific common duct dilation. No evidence of intrahepatic ductal dilation. Assessment & Plan - Diagnosis (1) Chronically on opiate therapy Is this a current diagnosis for this admission?: Yes (2) Dyspnea Qualifiers: Dyspnea type: unspecified Qualified Code(s): R06.00 - Dyspnea, unspecified Is this a current diagnosis for this admission?: Yes (3) Acute on chronic respiratory failure with hypoxia and hypercapnia Is this a current diagnosis for this admission?: Yes (5) Sepsis Qualifiers: Sepsis type: sepsis due to unspecified organism Qualified Code(s): A41.9 - Sepsis, unspecified organism Is this a current diagnosis for this admission?: No
[2017-04-11] MEDS: PREDNISONE 20 MG TABLET PO SCH (11:16)
[2017-04-11] MEDS: ASPIRIN 81 MG TABLET, CHEWABLE PO SCH (11:18)
[2017-04-11] MEDS: IRON POLYSACCHARIDES COMPLEX 150 MG CAPSULE PO SCH (11:19)
[2017-04-11] MEDS: LORATADINE 10 MG TABLET PO SCH (11:20)
[2017-04-11] MEDS: LACTOBACILLUS ACIDOPHILUS 250 MG TAB PO SCH (11:21)
[2017-04-11] MEDS: GUAIFENESIN 600 MG TABLET.SA PO SCH (11:21)
[2017-04-11] MEDS: ROFLUMILAST 500 MCG TABLET PO SCH (11:21)
[2017-04-11] MEDS: FLUCONAZOLE 100 MG TABLET PO SCH (11:22)
[2017-04-11] MEDS: DOCUSATE SODIUM 100 MG CAPSULE PO SCH (11:22)
[2017-04-11] MEDS: FAMOTIDINE 20 MG TABLET PO SCH (11:22)
[2017-04-11] MEDS: LIDOCAINE 5% (700 MG) TRANSDERMAL ADH..PATCH TP SCH (11:23)
[2017-04-11] MEDS: FLUTICASONE NASAL SPRAY 50 MCG/SPRY 120 SPRAY/16 GM NASL SCH (11:24)
[2017-04-11] MEDS: FLUTICASONE/SALMETEROL DISKUS 500-50 MCG/DOSE IH SCH (11:24)
[2017-04-11] MEDS: ENOXAPARIN SODIUM INJ 40 MG/0.4 ML DISP.SYRIN SUBCUT SCH (11:25)
[2017-04-11 14:12] VITALS: BP 110/68
[2017-04-11 17:37] LABS: ASPERGILLUS FLAVUS Negative (Neg:<1:1)
[2017-04-11 18:37] LABS: ASPERGILLUS NIGER Negative (Neg:<1:1)
== END 2017-04-11 15:49 | disposition home or self-care (01) | DRG 871 ==
LOC: ER 01:23 → EH 04:43 → UNDOADMIN 04:48 → ICU 08:56 → 3W 04-04 22:00
PROVIDERS: ADMIT Internal Medicine; ATTEND Internal Medicine
PROC: 30233N1 Transfusion of Nonautologous Red Blood Cells into Peripheral Vein, Percutaneous Approach (ICD-10-PCS; principal; 2017-04-04)
DX: A41.9 Sepsis, unspecified organism (principal); J96.22 Acute and chronic respiratory failure with hypercapnia; J18.1 Lobar pneumonia, unspecified organism; N17.0 Acute kidney failure with tubular necrosis; J96.21 Acute and chronic respiratory failure with hypoxia; J44.1 Chronic obstructive pulmonary disease with (acute) exacerbation; E87.6 Hypokalemia; K21.9 Gastro-esophageal reflux disease without esophagitis; D50.9 Iron deficiency anemia, unspecified; G89.29 Other chronic pain; Z66 Do not resuscitate; Z79.82 Long term (current) use of aspirin; Z79.899 Other long term (current) drug therapy; Z99.81 Dependence on supplemental oxygen; Z87.891 Personal history of nicotine dependence
CPT/HCPCS: 36415; 36430; 36600; 70450; 71010; 71020; 71260; 74177; 76705; 80048; 80053; 80307; 82533; 82550; 82553; 82728; 82746; 82803; 83540; 83550; 83605; 83735; 84100; 84484; 85025; 85027; 85045; 86606; 86850; 86900; 86901; 86920; 87015; 87040; 87070; 87101; 87116; 87205; 87206; 93005; 93010; 93976; 94010; 94060; 94640; 94660; 94799; 96361; 96365; 96366; 96375; 99291; J0637; J0743; J1644; J1650; J1756; J1940; J2020; J2248; J2405; J2543; J2930; J3370; J3475; J3480; J3490; J7030; J7050; J7512; J7620; P9016; S0028

== ENCOUNTER 2017-05-28 08:15 | Emergency (ER) | payer MEDICARE, MEDICAID ==
[2017-05-28 08:57] LABS: VENOUS BLOOD HCO3 30.8 mmol/L (20-32); VENOUS BLOOD PCO2 59.4 mmHg (35-63); VENOUS BLOOD PH 7.33 (7.30-7.42)
--- NOTE | 2017-05-28 08:57 | RADIOLOGY REPORT (SQ) ---
EXAM DESCRIPTION: CHEST SINGLE VIEW COMPLETED DATE/TIME: 05/28/2017 8:41 am REASON FOR STUDY: bed 10 sepsis protocol COMPARISON: 04/05/2017 EXAM PARAMETERS: NUMBER OF VIEWS: One view. TECHNIQUE: Single frontal radiographic view of the chest acquired. RADIATION DOSE: NA LIMITATIONS: None. FINDINGS: LUNGS AND PLEURA: Severe COPD and chronic scarring. New abnormal density on the left in t he upper chest consistent with pneumonia. Chronic blunting of the left costophrenic sulcus. No sign ificant effusion. MEDIASTINUM AND HILAR STRUCTURES: No masses. Contour normal. HEART AND VASCULAR STRUCTURES: Heart normal in size. Normal vasculature. BONES: No acute findings. HARDWARE: None in the chest. OTHER: No other significant finding. IMPRESSION: 1. Pneumonia on the left. 2. Severe COPD and scarring. TECHNICAL DOCUMENTATION: JOB ID: [id number]
[2017-05-28 08:58] LABS: HEMATOCRIT 26.1 % (37.9-51.0); HEMOGLOBIN 8.5 g/dL (13.5-17.0); HGB HCT DIFFERENCE -0.6; MEAN CORPUSCULAR HEMOGLOBIN 30.3 pg (27.0-33.4); MEAN CORPUSCULAR HGB CONC 32.8 g/dL (32.0-36.0); MEAN CORPUSCULAR VOLUME 92 fl (80-97); RED BLOOD COUNT 2.82 10^6/uL (4.35-5.55); RED CELL DISTRIBUTION WIDTH 19.1 % (11.5-14.0); WHITE BLOOD COUNT 25.4 10^3/uL (4.0-10.5)
[2017-05-28 09:07] LABS: PROTHROMBIN TIME 13.6 SEC (11.4-15.4)
[2017-05-28 09:09] LABS: ALANINE AMINOTRANSFERASE 24 U/L (21-72); ALBUMIN 2.7 g/dL (3.5-5.0); ALKALINE PHOSPHATASE 214 U/L (38-126); ANION GAP 11 (5-19); ASPARTATE AMINO TRANSFERASE 19 U/L (17-59); BILIRUBIN,DIRECT 0.5 mg/dL (0.0-0.4); BILIRUBIN,TOTAL 0.5 mg/dL (0.2-1.3); BLOOD UREA NITROGEN 33 mg/dL (7-20); CALCIUM 9.4 mg/dL (8.4-10.2); CARBON DIOXIDE 30 mmol/L (22-30); CHLORIDE 94 mmol/L (98-107); CREATININE RESULT 0.78 mg/dL (0.52-1.25); GLUCOSE 123 mg/dL (75-110); POTASSIUM 5.7 mmol/L (3.6-5.0); SODIUM 134.9 mmol/L (137-145); TOTAL PROTEIN 6.9 g/dL (6.3-8.2)
[2017-05-28 09:12] LABS: CREATINE KINASE < 20 U/L (55-170)
[2017-05-28 09:25] LABS: BASOPHILS % (MANUAL) 0 % (0-2); EOSINOPHILS % (MANUAL) 0 % (0-6); LYMPHOCYTES % (MANUAL) 3 % (13-45); TOTAL CELLS COUNTED 100
[2017-05-28 09:26] LABS: ANISOCYTOSIS 2+; TOXIC GRANULATION SLIGHT; TOXIC VACUOLATION PRESENT
[2017-05-28 09:27] LABS: POLYCHROMASIA SLIGHT; TARGET CELLS SLIGHT
[2017-05-28 09:28] LABS: CREATINE KINASE MB 0.38 ng/mL (<4.55)
[2017-05-28 09:28] LABS: PLATELET CLUMPS PRESENT
[2017-05-28 09:30] LABS: BAND NEUTROPHILS % (MANUAL) 12 % (3-5)
[2017-05-28 09:32] LABS: TROPONIN I 0.046 ng/mL
[2017-05-28] MEDS ORDERED: VANCOMYCIN HCL INJ 1000 MG VIAL IV ONE (09:33)
[2017-05-28] MEDS ORDERED: TOBRAMYCIN SULFATE INJ 80 MG/2 ML VIAL IV ONE ×2 (09:34→11:30)
[2017-05-28] MEDS ORDERED: PIPERACILLIN/TAZOBACTAM 4.5 GM VIAL IV ONE (09:34)
--- NOTE | 2017-05-28 09:39 | ER Document Report ---
ED General - General Chief Complaint: Breathing Difficulty Stated Complaint: DIFFICULTY BREATHING Time Seen by Provider: 05/28/17 08:19 Mode of Arrival: Medic Information source: Patient Notes: 51-year-old male hx of recent admission to [facility] for 1 month due to respiratory failure secondary to fungal infection and has been discharge for the past week presents with complaints of shortness of breath over the past 3 days. Patient was found by EMS to be satting in the mid 60s on 10 L nasal cannula. Patient was immediately placed on CPAP by EMS and sats went up to the low 90s high 80s patient denies any fevers or chills admits to productive cough which has been consistent TRAVEL OUTSIDE OF THE [place] IN LAST 30 DAYS: No - HPI Onset: Other Onset/Duration: Persistent Quality of pain: No pain Severity: Mild Pain Level: 1 Associated symptoms: Productive cough, Shortness of breath Exacerbated by: Denies Relieved by: Denies Similar symptoms previously: Yes Recently seen / treated by doctor: Yes - Related Data Allergies/Adverse Reactions: No Known Allergies Allergy (Verified 10/23/16 10:10) Past Medical History - Social History Smoking Status: Former Smoker Cigarette use (# per day): No Chew tobacco use (# tins/day): No Smoking Education Provided: No Family History: COPD Pulmonary Medical History: Reports: Hx COPD, Hx Pneumonia, Hx Respiratory Failure Neurological Medical History: Denies: Hx Seizures Renal/ Medical History: Denies: Hx Peritoneal Dialysis GI Medical History: Reports: Hx Gastroesophageal Reflux Disease, Hx Endoscopy Psychiatric Medical History: Reports: Hx Anxiety Past Surgical History: Reports: Hx Orthopedic Surgery - back - Immunizations Hx Diphtheria, Pertussis, Tetanus Vaccination: Yes Hx Pneumococcal Vaccination: 09/14/14 Review of Systems - Review of Systems Notes: REVIEW OF SYSTEMS: CONSTITUTIONAL : Denies fever, chills, or sweats. Denies recent illness. EENT: Denies eye, ear, throat, or mouth pain or symptoms. Denies nasal or sinus congestion or discharge. Denies throat, tongue, or mouth swelling or difficulty swallowing. CARDIOVASCULAR: Denies chest pain. Denies palpitations or racing or irregular heart beat. Denies ankle edema. RESPIRATORY: Admits to difficulty breathing shortness of breath GASTROINTESTINAL: Denies abdominal pain or distention. Denies nausea, vomiting , or diarrhea. Denies blood in vomitus, stools, or per rectum. Denies black, tarry stools. Denies constipation. GENITOURINARY: Denies difficulty urinating, painful urination, burning, frequency, blood in urine, or discharge. MUSCULOSKELETAL: Denies back or neck pain or stiffness. Denies joint pain or swelling. SKIN: Denies rash, lesions or sores. HEMATOLOGIC : Denies easy bruising or bleeding. LYMPHATIC: Denies swollen, enlarged glands. NEUROLOGICAL: Denies confusion or altered mental status. Denies passing out or loss of consciousness. Denies dizziness or lightheadedness. Denies headache. Denies weakness or paralysis or loss of use of either side. Denies problems with gait or speech. Denies sensory loss, numbness, or tingling. Denies seizures. PSYCHIATRIC: Denies anxiety or stress. Denies depression, suicidal ideation, or homicidal ideation. ALL OTHER SYSTEMS REVIEWED AND NEGATIVE. Dictation was performed using [employer] voice recognition software PHYSICAL EXAMINATION: GENERAL: Thin frail male HEAD: Atraumatic, normocephalic. EYES: Pupils equal round and reactive to light, extraocular movements intact, sclera anicteric, conjunctiva are normal. ENT: Nares patent, oropharynx clear without exudates. Moist mucous membranes. NECK: Normal range of motion, supple without lymphadenopathy LUNGS: Coarse wheezing all throughout HEART: Regular rate and rhythm without murmurs ABDOMEN: Soft, nontender, nondistended abdomen. No guarding, no rebound. No masses appreciated. Musculoskeletal: Normal range of motion, no pitting or edema. No cyanosis. NEUROLOGICAL: Cranial nerves grossly intact. Normal speech, normal gait. Normal sensory, motor exams PSYCH: Normal mood, normal affect. SKIN: Warm, Dry, normal turgor, no rashes or lesions noted. Physical Exam - Vital signs Vitals: Resp 12 05/28/17 08:23 Course - Re-evaluation Re-evalutation: 05/28/17 09:39 lorenzo transfer paged, pt noted ot have probable bacterial infection 05/28/17 09:42 Dr Flannery paged 05/28/17 09:54 Dr Flannery accepts the patient 05/28/17 12:19 Patient has been reevaluated heart rate is now 120s patient's otherwise stable on BiPAP awaiting transport patient meets sepsis criteria and started on triple antibiotic coverage for hospital-acquired pneumonia 05/28/17 12:59 ems contacted that patient was desatting, i requested they come back to us, they are closer to [facility] ED [facility] contacted regarding the emergency traffic that is going there 05/28/17 17:01 - Vital Signs Vital signs: Temp Pulse Resp BP Pulse Ox 99.5 F 18 100/69 93 05/28/17 10:29 05/28/17 11:38 05/28/17 11:38 05/28/17 11:38 - Laboratory Result Diagrams: 05/28/17 08:25 05/28/17 08:35 Laboratory results interpreted by me: 05/28/17 05/28/17 05/28/17 08:25 08:35 08:35 WBC 25.4 H RBC 2.82 L Hgb 8.5 L Hct 26.1 L RDW 19.1 H Seg Neuts % (Manual) 82 H Band Neutrophils % 12 H Lymphocytes % (Manual) 3 L Abs Neuts (Manual) 23.9 H Sodium 134.9 L Potassium 5.7 H Chloride 94 L BUN 33 H Glucose 123 H POC Glucose Direct Bilirubin 0.5 H Alkaline Phosphatase 214 H Creatine Kinase < 20 L NT-Pro-B Natriuret Pep 1670 H Albumin 2.7 L Ur Leukocyte Esterase 05/28/17 05/28/17 08:47 09:15 WBC RBC Hgb Hct RDW Seg Neuts % (Manual) Band Neutrophils % Lymphocytes % (Manual) Abs Neuts (Manual) Sodium Potassium Chloride BUN Glucose POC Glucose 146 H Direct Bilirubin Alkaline Phosphatase Creatine Kinase NT-Pro-B Natriuret Pep Albumin Ur Leukocyte Esterase TRACE H - Diagnostic Test Radiology reviewed: Image reviewed, Reports reviewed - EKG Interpretation by Me EKG shows normal: Sinus rhythm, [place], Intervals, QRS Complexes Rate: Tachycardia Critical Care Note - Critical Care Note Total time excluding time spent on procedures (mins): 44 Comments: 44 minutes of critical care time spent in direct contact evaluating and reevaluating the patient, treating symptoms, reviewing labs and studies and speaking with family and consultants excluding any procedures Discharge - Discharge Clinical Impression: End stage COPD, Lung mass, Severe sepsis, Acute on chronic respiratory failure with hypoxia and hypercapnia Dyspnea Qualifiers: Dyspnea type: unspecified Qualified Code(s): R06.00 - Dyspnea, unspecified Condition: Critical Disposition: [facility] Referrals: LAKSHMI GARCIA MD [Primary Care Provider] - Follow up as needed
[2017-05-28 09:49] LABS: APPEARANCE,URINE SLIGHTLY-CLOUDY; BILIRUBIN,URINE NEGATIVE (NEGATIVE); GLUCOSE, URINE NEGATIVE (NEGATIVE); KETONES,URINE NEGATIVE (NEGATIVE); LEUKOCYTE ESTERASE,URINE TRACE (NEGATIVE); NITRITE,URINE NEGATIVE (NEGATIVE); PROTEIN,URINE NEGATIVE (NEGATIVE); URINE SPECIFIC GRAVITY 1.009; UROBILINOGEN,URINE NEGATIVE mg/dL (<2.0)
[2017-05-28] MEDS ORDERED: NORMAL SALINE 1000 ML 1,000 ML IV ONE (10:12)
--- NOTE | 2017-05-28 10:15 | EKG REPORT ---
SEVERITY:- OTHERWISE NORMAL ECG - SINUS TACHYCARDIA BORDERLINE RIGHT AXIS DEVIATION : Confirmed by: Jay Ash 28-May-2017 10:15:18
[2017-05-28] MEDS ORDERED: WATER IV ONE (11:15)
[2017-05-28] MEDS ORDERED: DEXTROSE 5% IV ONE (11:15)
[2017-05-28] MEDS ORDERED: TOBRAMYCIN SULFATE IV ONE (11:15)
[2017-05-28 11:41] VITALS: BP 100/69
[2017-05-29 09:46] LABS: PATH REVIEW PATHOLOGIST REVIEWED
== END 2017-05-28 12:23 | disposition short-term general hospital (02) ==
LOC: ER 08:15
DX: J44.1 Chronic obstructive pulmonary disease with (acute) exacerbation (principal); R91.8 Other nonspecific abnormal finding of lung field; A41.9 Sepsis, unspecified organism; R65.20 Severe sepsis without septic shock; J96.22 Acute and chronic respiratory failure with hypercapnia; K21.9 Gastro-esophageal reflux disease without esophagitis; Z87.891 Personal history of nicotine dependence
CPT/HCPCS: 93005; 99291; 96375; 96365; 96366; 96368; 36415; 87040; 87086; 82553; 82962; 82550; 85025; 85610; 80053; 81001; 84484; 82803; 83605; 83880; 71010; 93010; J3260; J7030; J3370; J2543